=== PATIENT | female | born 1975 | race Caucasian/White ===

== ENCOUNTER → 2019-04-29 15:30 | Outpatient (BNVA) | payer MEDICAID, SELFPAY | PROVIDERS: Visit Provider Obstetrics & Gynecology | DX: Z01.89 Encounter for other specified special examinations (principal) | CPT/HCPCS: 81000; 84315 ==

== ENCOUNTER → 2019-05-04 14:32 | Outpatient (BNVA) | payer MEDICAID, SELFPAY | PROVIDERS: Visit Provider Nurse Practitioner Women's Health | DX: R10.2 Pelvic and perineal pain (principal); D25.9 Leiomyoma of uterus, unspecified | CPT/HCPCS: 76830 ==

== ENCOUNTER → 2019-05-10 16:30 | Outpatient (BNVA) | payer MEDICAID, SELFPAY | PROVIDERS: Visit Provider Obstetrics & Gynecology | DX: N64.52 Nipple discharge (principal) | CPT/HCPCS: 84146 ==

== ENCOUNTER 2020-02-09 14:32 | Emergency (ER) | payer MEDICAID, SELFPAY ==
[2020-02-09 14:34] VITALS: BP 155/112; PULSE 87; RESP 16; TEMP 36.6; O2SAT 100; BMI 29.2
--- NOTE | 2020-02-09 14:38 | CTR_ITS ---
PROCEDURE INFORMATION: Exam: CT Abdomen And Pelvis With Contrast Exam date and time: 02/09/2020 2:42 PM Age: 45 years old Clinical indication: Abdominal pain; Localized; Left; Prior surgery; Surgery type: Appy, tubal; Additional info: Pain, left sided, n/v TECHNIQUE: Imaging protocol: Computed tomography of the abdomen and pelvis with intravenous contrast. Radiation optimization: All CT scans at this facility use at least one of these dose optimization techniques: automated exposure control; mA and/or kV adjustment per patient size (includes targeted exams where dose is matched to clinical indication); or iterative reconstruction. Contrast material: OMNI 300; Contrast volume: 95 ml; Contrast route: INTRAVENOUS (IV); COMPARISON: CT abdomen pelvis w con* [id number] 12/30/2017 9:45 AM RADIATION DOSE METRICS: Total DLP (mGy-cm): 989.05 FINDINGS: Liver: Normal. No mass. Gallbladder and bile ducts: Normal. No calcified stones. No ductal dilation. Pancreas: Normal. No ductal dilation. Spleen: Normal. No splenomegaly. Adrenal glands: Normal. No mass. Kidneys and ureters: Normal. No hydronephrosis. Stomach and bowel: Unremarkable. No obstruction. No mucosal thickening. Appendix: There has been an appendectomy. Intraperitoneal space: Unremarkable. No free air. No significant fluid collection. Vasculature: Unremarkable. No abdominal aortic aneurysm. Lymph nodes: Unremarkable. No enlarged lymph nodes. Urinary bladder: Unremarkable as visualized. Reproductive: There is 4.2 x 3.2 cm hypodensity in the posterior uterine body which is unchanged. Bones/joints: Unremarkable. No acute fracture. Soft tissues: Unremarkable. CT/CT abdomen pelvis w con* [id number] IMPRESSION: There are no acute concerning abnormalities. No significant change when compared with 12/30/2017. Radiation Dose CTDIVOL = (mGy): DLP = 989.05 (mGy-cm)
--- NOTE | 2020-02-09 14:54 | W.ED.GIBLEED ---
HPI - GI Bleed General: Chief complaint: GI Bleed Stated complaint: ABDOMINAL PAIN Time Seen by Provider: 02/09/20 14:34 Source: patient and EMS Mode of arrival: EMS Limitations: no limitations History of Present Illness: HPI Narrative: 45-year-old female who presents with EMS for abdominal pain. Very difficult to get history from the patient. 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 Patient here is refusing to talk to me at first states that she hates doctors and will not speak to them. She is screaming and crying. I was able to get some history from her. She states she been having abdominal pain over the last 1 to 2 days. States she had one episode of blood in her stools that was red. Denies any worsening or improving factors. Associated symptoms: Reports abdominal pain; Denies chills, easy bruising, fever(s), headache(s) or rash Review of Systems Const: Denies: fever(s), chills, body aches or change in appetite Eyes: Denies: blurry vision or eye discomfort ENMT: Denies: throat pain or dental pain Card: Denies: chest pain Resp: Denies: dyspnea GI: Reports: abdominal pain : Denies: dysuria Musc: Denies: neck pain or back pain Skin/Breast: Denies: rash Neuro: Denies: headache(s) Psych: Denies: depression Shahriar/Lymph: Denies: easy bruising All/Imm: Denies: urticaria PFSH ED PFSH: Medical History Pelvic pain in female Family History Father Diabetes Hypertension Social History Smoking and tobacco status: never smoked Alcohol intake: current Alcohol intake frequency: holidays/special occasions only Female Reproductive History: Date of last menstrual period: 01/15/20 Physical Exam Const: COMMON NORMALS: patient oriented x3 and healthy appearing GENERAL APPEARANCE: in distress and anxious HENMT: COMMON NORMALS: normocephalic and atraumatic HEAD & SCALP: normocephalic and atraumatic Eye: COMMON NORMALS: Equal, round and reactive pupils present and EOMs intact bilaterally PUPIL: Yes Equal, round and reactive pupils present Neck/C-Spine: COMMON NORMALS: full ROM and supple Chest: COMMONS NORMALS: normal inspection of the chest and normal palpation of entire chest wall Resp: COMMON NORMALS: normal respiratory effort, No retractions, No use of accessory muscles and clear to auscultation bilaterally AUSCULTATION: clear to auscultation bilaterally Cardio: COMMON NORMALS: regular rate, regular rhythm and No murmurs present (Cardio) RATE: regular rate RHYTHM: regular rhythm GI: COMMON NORMALS: Soft to palpation and no masses PALPATION: Yes Soft to palpation OTHER: Diffuse tenderness Extremity: COMMON NORMALS: normal to inspection and full ROM Neuro: COMMON NORMALS: patient oriented x3, moves all extremities and no focal motor deficits Psych: OTHER: Patient is agitated and tearful. She is very angry with the expeditionary fighting vehicle crewman and we had to call security. Patient is also screaming at me stating that she hates doctors and initially would not give me her history Skin: COMMON NORMALS: no rashes or lesions noted and no wounds GENERAL SKIN EXAM: no rashes or lesions noted Course Vital Signs: Vital signs: Vital Signs Temperature 98.9 F 02/09/20 17:21 Pulse Rate 82 02/09/20 17:21 Respiratory Rate 22 H 02/09/20 17:21 Blood Pressure 139/96 02/09/20 17:21 Pulse Oximetry 99 02/09/20 17:21 MDM - GI Bleed MDM Narrative: Medical decision making narrative: Patient presents here with abdominal pain. She states she also had vaginal bleeding in some rectal bleeding. She has no signs of bleeding here and her hemoglobin is stable. Patient CT scan here is normal as well. She is stable for discharge and will place her on Protonix along with dicyclomine and she is to follow-up PCP and return if worsening. Lab Data: Labs: Lab Results 02/09/20 02/09/20 02/09/20 Range/Units 14:50 14:50 15:50 WBC 6.5 (4.0-10.0) 10^3/ uL RBC 3.99 L (4.1-5.3) 10^6/u L Hgb 12.0 (11.5-15.3) g/dL Hct 36.5 L (37.0-47.0) % MCV 91.5 (81-99) fL MCH 30.1 (28.0-34.0) pg MCHC 32.9 (30.0-36.0) g/dL RDW 13.2 (12.1-15.1) % Plt Count 320 (130-400) 10^3/c mm MPV 9.6 (7.4-10.4) fL Neut % (Auto) 54.7 % Lymph % (Auto) 37.5 % Beauregard % (Auto) 5.6 % Eos % (Auto) 1.1 % Baso % (Auto) 0.6 % Neut # (Auto) 3.55 (1.8-7.7) 10^3/u L Lymph # (Auto) 2.4 (0.8-4.8) 10^3/u L Beauregard # (Auto) 0.4 (0.2-0.9) 10^3/u L Eos # (Auto) 0.1 (0.0-0.8) 10^3/u L Baso # (Auto) 0.0 (0.0-0.1) 10^3/u L Nucleated RBC % (a uto) 0 % Nucleated RBCs # 0.0 /100WBC Sodium 138 (136-145) mmol/L Potassium 3.6 (3.5-5.1) mmol/L Chloride 102 (98-107) mmol/L Carbon Dioxide 21 L (22-29) mmol/L Anion Gap 18.6 (5-19) BUN 9 (6-20) mg/dL Creatinine 0.8 (0.5-0.9) mg/dL GFR Calculation 77.6 L (90-130) mL/min Glucose 108 (65-115) mg/dL Calculated Osmolal ity 285 (285-295) mOsm/k g Calcium 9.9 (8.5-10.5) mg/dL Total Bilirubin 0.6 (0.15-1.2) mg/dL AST 11 (0-32) U/L ALT 12 (0-33) U/L Alkaline Phosphata se 82 (35-105) IU/L Total Protein 7.8 (6.6-8.7) g/dL Albumin 4.5 (3.5-5.2) g/dL Globulin 3.3 (1.3-4.6) g/dL Lipase 44 (13-60) U/L HCG, Qual Negative (Negative) Urine Color (Yellow) Urine Appearance (CLEAR) Urine pH (5-7) Ur Specific Gravit y (1.005-1.030) Urine Protein (Negative) Urine Glucose (UA) (Normal) Urine Ketones (Negative) Urine Blood (Negative) Urine Nitrate (Negative) Urine Bilirubin (Negative) Prot Sulfosalicyli c Acd (Negative) Urine Urobilinogen (Negative) mg/dL Ur Leukocyte Anny ase (Negative) 02/09/20 Range/Units 15:50 WBC (4.0-10.0) 10^3/ uL RBC (4.1-5.3) 10^6/u L Hgb (11.5-15.3) g/dL Hct (37.0-47.0) % MCV (81-99) fL MCH (28.0-34.0) pg MCHC (30.0-36.0) g/dL RDW (12.1-15.1) % Plt Count (130-400) 10^3/c mm MPV (7.4-10.4) fL Neut % (Auto) % Lymph % (Auto) % Beauregard % (Auto) % Eos % (Auto) % Baso % (Auto) % Neut # (Auto) (1.8-7.7) 10^3/u L Lymph # (Auto) (0.8-4.8) 10^3/u L Beauregard # (Auto) (0.2-0.9) 10^3/u L Eos # (Auto) (0.0-0.8) 10^3/u L Baso # (Auto) (0.0-0.1) 10^3/u L Nucleated RBC % (a uto) % Nucleated RBCs # /100WBC Sodium (136-145) mmol/L Potassium (3.5-5.1) mmol/L Chloride (98-107) mmol/L Carbon Dioxide (22-29) mmol/L Anion Gap (5-19) BUN (6-20) mg/dL Creatinine (0.5-0.9) mg/dL GFR Calculation (90-130) mL/min Glucose (65-115) mg/dL Calculated Osmolal ity (285-295) mOsm/k g Calcium (8.5-10.5) mg/dL Total Bilirubin (0.15-1.2) mg/dL AST (0-32) U/L ALT (0-33) U/L Alkaline Phosphata se (35-105) IU/L Total Protein (6.6-8.7) g/dL Albumin (3.5-5.2) g/dL Globulin (1.3-4.6) g/dL Lipase (13-60) U/L HCG, Qual (Negative) Urine Color Yellow (Yellow) Urine Appearance Clear (CLEAR) Urine pH 8 H (5-7) Ur Specific Gravit y 1.015 (1.005-1.030) Urine Protein Neg (Negative) Urine Glucose (UA) Norm (Normal) Urine Ketones Negative (Negative) Urine Blood Neg (Negative) Urine Nitrate Negative (Negative) Urine Bilirubin Neg (Negative) Prot Sulfosalicyli c Acd Negative (Negative) Urine Urobilinogen Neg (Negative) mg/dL Ur Leukocyte Anny ase Negative (Negative) Imaging Data^: CT Abd/Pel: Attestation: I personally reviewed and interpreted this imaging study as follows: Radiologist's impression: [place] [address] CT Scan Report Signed Patient: Stephanie Valentino Unit #: [id number] : 1975 Age/Sex: 45 / F ADM Date: 02/09/20 Loc: ER Room/Bed: Attending Dr: Ordering Provider/Ordering MD: Kartik Nesbitt MD Date of Service: 02/09/20 Procedure(s): CT abdomen pelvis w con* [id number] Accession Number(s): [id number] Report Number: [id number] PROCEDURE INFORMATION: Exam: CT Abdomen And Pelvis With Contrast Exam date and time: 02/09/2020 2:42 PM Age: 45 years old Clinical indication: Abdominal pain; Localized; Left; Prior surgery; Surgery type: Appy, tubal; Additional info: Pain, left sided, n/v TECHNIQUE: Imaging protocol: Computed tomography of the abdomen and pelvis with intravenous contrast. Radiation optimization: All CT scans at this facility use at least one of these dose optimization techniques: automated exposure control; mA and/or kV adjustment per patient size (includes targeted exams where dose is matched to clinical indication); or iterative reconstruction. Contrast material: OMNI 300; Contrast volume: 95 ml; Contrast route: INTRAVENOUS (IV); COMPARISON: CT abdomen pelvis w con* [id number] 12/30/2017 9:45 AM RADIATION DOSE METRICS: Total DLP (mGy-cm): 989.05 FINDINGS: Liver: Normal. No mass. Gallbladder and bile ducts: Normal. No calcified stones. No ductal dilation. Pancreas: Normal. No ductal dilation. Spleen: Normal. No splenomegaly. Adrenal glands: Normal. No mass. Kidneys and ureters: Normal. No hydronephrosis. Stomach and bowel: Unremarkable. No obstruction. No mucosal thickening. Appendix: There has been an appendectomy. Intraperitoneal space: Unremarkable. No free air. No significant fluid collection. Vasculature: Unremarkable. No abdominal aortic aneurysm. Lymph nodes: Unremarkable. No enlarged lymph nodes. Urinary bladder: Unremarkable as visualized. Reproductive: There is 4.2 x 3.2 cm hypodensity in the posterior uterine body which is unchanged. Bones/joints: Unremarkable. No acute fracture. Soft tissues: Unremarkable. CT/CT abdomen pelvis w con* [id number] IMPRESSION: There are no acute concerning abnormalities. No significant change when compared with 12/30/2017. Discharge Plan Discharge Patient Disposition: Home Clinical Impression: Pelvic pain in female, Vaginal bleeding Condition: Stable Prescriptions: New dicyclomine 20 mg tablet 20 mg PO TID PRN (Reason: abdominal pain) Qty: 20 RF: 0 Protonix 40 mg tablet,delayed release (DR/EC) 40 mg PO DAILY Qty: 30 RF: 0 No Action ranitidine HCl 75 mg tablet 75 mg PO BID RF: 0 Discharge Orders: Discharge Order (Routine); Ordered 02/09/20 Ordered By: Kartik Nesbitt Referrals: David Goldsmith MD [Physician] - 1-3 days Discharge Diet: Advance as tolerated Discharge Activity: Resume usual activity Patient Instructions: Abdominal Pain (ED) Discharge Date/Time: 02/09/20 17:26 Coding Level of Care Code ED Geography Head for Chg Fwd Exam Comprehensive
[2020-02-09 14:59] LABS: Basophils % 0.6 %; Eosinophils # 0.1 10^3/uL (0.0-0.8); Eosinophils % 1.1 %; Hematocrit 36.5 % (37.0-47.0); Lymphocytes # 2.4 10^3/uL (0.8-4.8); Lymphocytes % 37.5 %; Mean Corpuscular HGB Conc 32.9 g/dL (30.0-36.0); Mean Corpuscular Hemoglobin 30.1 pg (28.0-34.0); Mean Corpuscular Volume 91.5 fL (81-99); Mean Platelet Volume 9.6 fL (7.4-10.4); Monocytes # 0.4 10^3/uL (0.2-0.9); Monocytes % 5.6 %; Neutrophils # 3.55 10^3/uL (1.8-7.7); Neutrophils % 54.7 %; Nucleated Red Blood Cells % 0 %; Platelet Count 320 10^3/cmm (130-400); Red Blood Count 3.99 10^6/uL (4.1-5.3); Red Cell Distribution Width 13.2 % (12.1-15.1); White Blood Count 6.5 10^3/uL (4.0-10.0)
[2020-02-09 15:00] VITALS: RESP 20
[2020-02-09] MEDS: morphine 4 mg/mL SDV 1 mL IVP (15:00)
[2020-02-09] MEDS: LORazepam 2 mg/mL INJ 1 mL 1 MG IVP (15:04)
[2020-02-09] MEDS: sodium chloride 0.9% 1,000 ML 999 ML IV (15:05)
[2020-02-09 15:08] VITALS: BP 139/94; PULSE 88; RESP 24; O2SAT 97
[2020-02-09] MEDS: iohexol 300 mg/mL 100 mL Btl IV (15:16)
[2020-02-09 15:23] LABS: Alanine Aminotransferase 12 U/L (0-33); Albumin Level 4.5 g/dL (3.5-5.2); Alkaline Phosphatase 82 IU/L (35-105); Anion Gap 18.6 (5-19); Aspartate Amino Transferase 11 U/L (0-32); Blood Urea Nitrogen 9 mg/dL (6-20); Calcium 9.9 mg/dL (8.5-10.5); Carbon Dioxide 21 mmol/L (22-29); Chloride 102 mmol/L (98-107); Globulin 3.3 g/dL (1.3-4.6); Glomerular Filtration Rate 77.6 mL/min (90-130); Glucose 108 mg/dL (65-115); Lipase 44 U/L (13-60); Osmolality Calculated 285 mOsm/kg (285-295); Potassium 3.6 mmol/L (3.5-5.1); Sodium 138 mmol/L (136-145); Total Bilirubin 0.6 mg/dL (0.15-1.2); Total Protein 7.8 g/dL (6.6-8.7)
[2020-02-09 16:01] LABS: HCG Qualitative Urine. Negative (Negative)
[2020-02-09 16:11] LABS: Add Urine Microscopic? NO
[2020-02-09 16:16] LABS: Glucose Urine UA Norm (Normal); Ketones Urine Negative (Negative); Protein Urine Neg (Negative); Specific Gravity, Urine 1.015 (1.005-1.030); Urine Appearance Clear (CLEAR); Urine Color Yellow (Yellow); pH Urine 8 (5-7)
[2020-02-09 16:17] LABS: Bilirubin Urine Neg (Negative); Blood Urine Neg (Negative); Leukocyte Esterase Urine Negative (Negative); Nitrate Urine Negative (Negative); Sulfosalicylic Acid Urine Negative (Negative); Urobilinogen Urine Neg (Negative)
[2020-02-09 17:21] VITALS: BP 139/96; PULSE 82; RESP 22; TEMP 37.2; O2SAT 99
== END 2020-02-09 17:26 | disposition home or self-care (01) ==
PROVIDERS: Emergency Provider Emergency Medicine
DX: R10.2 Pelvic and perineal pain (principal); N93.9 Abnormal uterine and vaginal bleeding, unspecified
CPT/HCPCS: 12345; 74177; 80053; 81003; 81025; 83690; 85025; 96361; 96374; 96375; 99283; J2060; J2270; J7030; Q9967

== ENCOUNTER 2020-08-07 11:32 | Emergency (ER) | payer MEDICAID, SELFPAY ==
[2020-08-07 11:40] VITALS: BP 135/86; PULSE 72; RESP 18; TEMP 37; O2SAT 98; BMI 31.8
--- NOTE | 2020-08-07 11:52 | ECG_ITS ---
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 Measurements Intervals [place] Rate: 68 P: 14 HI: 173 QRS: -4 QRSD: 88 T: 1 QT: 403 QTc: 431 Interpretive Statements SINUS RHYTHM POSSIBLE RIGHT VENTRICULAR CONDUCTION DELAY [RSR (QR) IN V1/V2] Compared to ECG 10/15/2017 14:02:40 Incomplete right bundle-branch block no longer present Electronically Signed On 08-08-2020 8:01:32 CDT by Wilfredo Anne M.D. [email or web address]
--- NOTE | 2020-08-07 11:52 | XRR_ITS ---
PROCEDURE INFORMATION: Exam: XR Chest Exam date and time: 08/07/2020 12:01 PM Age: 45 years old Clinical indication: Cough and dyspnea; Prior surgery; Surgery type: Lt breast; Additional info: Dyspnea/cough TECHNIQUE: Imaging protocol: XR of the chest. Views: 1 view. COMPARISON: CR XR ribs LT mn 3V w CXR1V [id number] 10/11/2019 10:40 AM FINDINGS: Lungs: Unremarkable. No consolidation. Pleural spaces: Unremarkable. No pleural effusion. No pneumothorax. Heart/Mediastinum: The cardiac silhouette is normal considering the AP projection. Bones/joints: Unremarkable. XR/XR chest 1V portable [id number] IMPRESSION: No significant cardiopulmonary abnormality.
--- NOTE | 2020-08-07 12:13 | CTR_ITS ---
PROCEDURE INFORMATION: Exam: CTA Chest With Contrast Exam date and time: 08/07/2020 12:28 PM Age: 45 years old Clinical indication: Abdominal pain; Chest pain; Prior surgery; Additional info: Chest pain/dyspena adb pain with n/v, breast mass TECHNIQUE: Imaging protocol: Computed tomographic angiography of the chest with contrast. 3D rendering (Not supervised by radiologist): MIP and/or 3D reconstructed images were created by the technologist. Radiation optimization: All CT scans at this facility use at least one of these dose optimization techniques: automated exposure control; mA and/or kV adjustment per patient size (includes targeted exams where dose is matched to clinical indication); or iterative reconstruction. Contrast material: OMNI 300; Contrast volume: 95 ml; Contrast route: INTRAVENOUS (IV); COMPARISON: CR XR chest 1V portable [id number] 08/07/2020 11:59 AM RADIATION DOSE METRICS: Total DLP (mGy-cm): 1743.46 FINDINGS: Pulmonary arteries: Normal. No pulmonary emboli. Aorta: Unremarkable. No aortic aneurysm. No aortic dissection. Lungs: Unremarkable. No consolidation. No masses. Pleural spaces: Unremarkable. No pneumothorax. No pleural effusion. Heart: Unremarkable. No cardiomegaly. No pericardial effusion. Lymph nodes: Unremarkable. No enlarged lymph nodes. Bones/joints: Unremarkable. No acute fracture. Soft tissues: Unremarkable. IMPRESSION: No acute findings. PROCEDURE INFORMATION: Exam: CT Abdomen And Pelvis With Contrast Exam date and time: 08/07/2020 12:28 PM Age: 45 years old Clinical indication: Abdominal pain; Chest pain; Prior surgery; Additional info: Chest pain/dyspena adb pain with n/v, breast mass TECHNIQUE: Imaging protocol: Computed tomography of the abdomen and pelvis with contrast. Radiation optimization: All CT scans at this facility use at least one of these dose optimization techniques: automated exposure control; mA and/or kV adjustment per patient size (includes targeted exams where dose is matched to clinical indication); or iterative reconstruction. Contrast material: OMNI 300; Contrast volume: 95 ml; Contrast route: INTRAVENOUS (IV); COMPARISON: CR XR chest 1V portable [id number] 08/07/2020 11:59 AM RADIATION DOSE METRICS: Total DLP (mGy-cm): 1743.46 FINDINGS: Liver: Normal. No mass. Gallbladder and bile ducts: Normal. No calcified stones. No ductal dilation. Pancreas: Normal. No ductal dilation. Spleen: Normal. No splenomegaly. Adrenal glands: Normal. No mass. Kidneys and ureters: Normal. No hydronephrosis. Stomach and bowel: Unremarkable. No obstruction. No mucosal thickening. Appendix: Appendectomy. Intraperitoneal space: Unremarkable. No free air. No significant fluid collection. Vasculature: Unremarkable. No abdominal aortic aneurysm. Lymph nodes: Unremarkable. No enlarged lymph nodes. Urinary bladder: Unremarkable as visualized. Reproductive: Multiple small rounded hypoattenuating masses in the lower uterine segment, most likely fibroids. No adnexal mass. Bones/joints: Unremarkable. No acute fracture. Soft tissues: Unremarkable. CT/CT angio chest w abd pel w con IMPRESSION: No acute findings in the abdomen or pelvis. Radiation Dose CTDIVOL = (mGy): DLP = 1743.46~1743.46 (mGy-cm)
--- NOTE | 2020-08-07 12:13 | CT_ITS ---
WS: [id number] CT HEAD TECHNIQUE: Noncontrast CT of the head obtained from the skullbase to the vertex. CLINICAL INFORMATION: meningioma, headache, N/V COMPARISON: CT May 29, 2016 and MRI , multiple prior MRIs dating back to 2011 DLP: All CT scans at [facility] use at least one of these dose optimization techniques: automat ed exposure control; mA and/or kV adjustment per patient size (includes targeted exams where dose is matched to clinical indication); or iterative reconstruction. FINDINGS: Again seen is the partially calcified meningioma along the left frontal operculum and sylvian fissure . This is enlarged compared to the prior examinations today measuring 2.6 x 1.5 x 2.4 cm. This compar es to previous measuring 1.6 x 1.8 x 1.6 cm. Associated mass effect on the underlying brain parenchym a. No visualized edema. This can be further evaluated with MRI. No hydrocephalus. No midline shift. No evidence of intracranial hemorrhage. Additional small area of calcification along the left parietal calvarium may represent an additional calcified meningioma measuring 8 x 7 mm versus benign calcification. This does appear enlarged compar ed to 2017 where it measured 5 mm. This can be better evaluated with MRI. CT/CT head wo con* [id number] IMPRESSION: 1. Previously described left inferior frontal meningioma has increased in size compared to 2017 today measuring 2.6 x 1.5 x 2.4 cm. No visualized underlying edema. Mild mass effect on the underlying brain parenchyma. 2. Additional small focus of calcification along the left parietal calvarium i ncreased since 2017 measures 8 x 7 mm suspicious for an additional calcified me ningioma. This would be better evaluated with gadolinium enhanced MRI. 3. No intracranial hemorrhage. Attempted Chandan Laird DO at 08/07/2020 1:46 PM.
--- NOTE | 2020-08-07 12:16 | W.ED.GENADLT ---
HPI - General Adult General: Chief complaint: General Medical Stated complaint: CP Time Seen by Provider: 08/07/20 11:42 History of Present Illness: HPI narrative: 45-year-old female presents to the emergency room complaining of back pain radiating down from her mid back down at times she states it feels like it goes all the way down into her pelvis to what she describes as to her cervix. She had an episode of the severe sudden episode of chest pain this morning and felt like it radiated from her head down into her chest and her jaw. She has a known history of meningioma she was worried about that. She also relates that she has had painful bloody drainage from her left breast last week. About a year and a half ago she had imaging done reportedly at [facility] and was told she had some breast masses that needed further follow-up she never did get any further evaluation done unfortunately. She is also reporting a lot of abdominal pain with severe nausea pain radiating from her mid back down into the abdomen at times and worsening pain with deep inspiration she has had an episode of hemoptysis with it one time as well. Onset (ago): day(s) Location: head, chest and abdomen Radiation: back and abdomen Severity: mild and moderate Quality: aching and constant Relieving factors: none Associated symptoms: Reports nausea; Deny chest pain, confusion, cough, diaphoresis, decreased appetite, dyspnea, fevers/chills, headache(s), malaise, rash, palpitations, seizures, short of breath, syncope, vomiting or weakness Treatments prior to arrival: none Review of Systems Const: Denies: malaise or diaphoresis ENMT: Denies: throat pain, ear or mastoid pain, nasal discharge or nasal congestion Card: Denies: chest pain, palpitations or syncope Resp: Denies: dyspnea GI: Reports: nausea; Denies: vomiting : Denies: flank pain, difficulty voiding, dysuria, urinary frequency or urinary urgency Skin/Breast: Denies: rash Neuro: Denies: headache(s) or confusion [facility] ED PFSH: Medical History (Updated 08/07/20 @ 15:21 by Chandan Laird DO) Pelvic pain in female Family History Father Diabetes Hypertension Social History (Reviewed 05/04/21 @ 12:40 by DEB Chen Smoking and tobacco status: never smoked Alcohol intake: current Alcohol intake frequency: holidays/special occasions only Female Reproductive History: Date of last menstrual period: 01/15/20 Physical Exam Const: COMMON NORMALS: no acute distress GENERAL APPEARANCE: cooperative and comfortable ORIENTATION/CONSCIOUSNESS: Yes awake, Yes oriented to person, Yes oriented to place and Yes oriented to time HENMT: COMMON NORMALS: normocephalic, atraumatic, hearing grossly normal bilaterally, external ears normal, EAC's normal, TM's normal bilaterally, Normal nasal mucous membranes and turbinates present, moist oral mucous membranes and oropharynx normal HEAD & SCALP: normocephalic and atraumatic NOSE: Normal nasal mucous membranes and turbinates present EXTERNAL EAR: Yes external ears normal EXTERNAL AUDITORY CANAL: EAC's normal TYMPANIC MEMBRANE: TM's normal bilaterally Eye: COMMON NORMALS: Equal, round and reactive pupils present, EOMs intact bilaterally, conjunctivae normal and no scleral icterus CONJUNCTIVA: Yes conjunctivae normal PUPIL: Yes Equal, round and reactive pupils present Neck/C-Spine: COMMON NORMALS: full ROM, no lymphadenopathy, supple and no JVD Lymph: LYMPHATIC: no lymphadenopathy noted and no lymphedema noted Chest: COMMONS NORMALS: normal inspection of the chest Breast/axilla inspection: Yes abnormal inspection of the breast (12 to 1 o'clock position there is a mass approximately 3 to 4 cm from the a) and Yes scars (And o'clock on the left breast there is a incision.) Resp: COMMON NORMALS: normal respiratory effort, No retractions, No use of accessory muscles and clear to auscultation bilaterally AUSCULTATION: clear to auscultation bilaterally Cardio: COMMON NORMALS: no JVD, regular rate, regular rhythm and No murmurs present (Cardio) RATE: regular rate RHYTHM: regular rhythm GI: COMMON NORMALS: Soft to palpation and No hepatosplenomegaly present AUSCULTATION: Yes normoactive bowel sounds PALPATION: Yes Soft to palpation, No Tenderness to palpation present (GI), No Guarding due to palpation present (GI) and Yes No hepatosplenomegaly present Extremity: COMMON NORMALS: normal to inspection, capillary refill normal, no clubbing, cyanosis or edema, no calf tenderness and no pedal edema Neuro: SENSORIUM/ORIENTATION: Yes oriented to person, Yes oriented to place and Yes oriented to time Skin: COMMON NORMALS: no rashes or lesions noted GENERAL SKIN EXAM: no rashes or lesions noted Course Vital Signs: Vital signs: Vital Signs Temperature 98.6 F 08/07/20 11:40 Pulse Rate 69 08/07/20 15:38 Respiratory Rate 18 08/07/20 15:38 Blood Pressure 172/122 08/07/20 15:38 Pulse Oximetry 100 08/07/20 15:38 MDM - General Adult MDM Narrative: Medical decision making narrative: Reviewed findings including imaging of the patient. Strongly encourage her to establish the primary care so that they can do further imaging of the breasts including mammography. She reports having had abnormal exam several years ago has not had the follow-up. For her leg pain gave her diclofenac and tizanidine. There are no acute findings on her CT of her abdomen her abdominal pain is pretty much resolved. Lab Data: Labs: Lab Results 08/07/20 08/07/20 08/07/20 Range/Units 12:46 12:46 12:46 WBC 5.4 (4.0-10.0) 10^3/ uL RBC 3.81 L (4.1-5.3) 10^6/u L Hgb 11.1 L (11.5-15.3) g/dL Hct 35.6 L (37.0-47.0) % MCV 93.4 (81-99) fL MCH 29.1 (28.0-34.0) pg MCHC 31.2 (30.0-36.0) g/dL RDW 14.1 (12.1-15.1) % Plt Count 324 (130-400) 10^3/c mm MPV 9.6 (7.4-10.4) fL Neut % (Auto) 55.4 % Lymph % (Auto) 36.1 % [place] % (Auto) 5.4 % Eos % (Auto) 1.9 % Baso % (Auto) 0.6 % Neut # (Auto) 3.00 (1.8-7.7) 10^3/u L Lymph # (Auto) 2.0 (0.8-4.8) 10^3/u L [place] # (Auto) 0.3 (0.2-0.9) 10^3/u L Eos # (Auto) 0.1 (0.0-0.8) 10^3/u L Baso # (Auto) 0.0 (0.0-0.1) 10^3/u L Nucleated RBC % (a uto) 0 % Nucleated RBCs # 0.0 /100WBC Sodium 138 (136-145) mmol/L Potassium 3.8 (3.5-5.1) mmol/L Chloride 107 (98-107) mmol/L Carbon Dioxide 20 L (22-29) mmol/L Anion Gap 14.8 (5-19) BUN 10 (6-20) mg/dL Creatinine 0.7 (0.5-0.9) mg/dL GFR Calculation 90.5 (90-130) mL/min Glucose 93 (65-115) mg/dL Calculated Osmolal ity 285 (285-295) mOsm/k g Calcium 8.8 (8.5-10.5) mg/dL Total Bilirubin 0.3 (0.15-1.2) mg/dL AST 13 (0-32) U/L ALT 30 (0-33) U/L Alkaline Phosphata se 86 (35-105) IU/L Troponin T Baselin e 6 (0-10) ng/L Troponin T 120 Min cher-ae heights (0-10) ng/L Delta Troponin T (0-10) ABS# Total Protein 7.3 (6.6-8.7) g/dL Albumin 4.3 (3.5-5.2) g/dL Globulin 3.0 (1.3-4.6) g/dL Urine Color (Yellow) Urine Appearance (CLEAR) Urine pH (5-7) Ur Specific Gravit y (1.005-1.030) Urine Protein (Negative) Urine Glucose (UA) (Normal) Urine Ketones (Negative) Urine Blood (Negative) Urine Nitrate (Negative) Urine Bilirubin (Negative) Urine Urobilinogen (Negative) mg/dL Ur Leukocyte Anny ase (Negative) Urine RBC (0-2) /hpf Urine WBC (0-5) /hpf Ur Squamous Epith Cells (0-5) /hpf Amorphous Sediment Urine Bacteria (NONE) /hpf 08/07/20 08/07/20 Range/Units 14:00 Unknown WBC (4.0-10.0) 10^3/ uL RBC (4.1-5.3) 10^6/u L Hgb (11.5-15.3) g/dL Hct (37.0-47.0) % MCV (81-99) fL MCH (28.0-34.0) pg MCHC (30.0-36.0) g/dL RDW (12.1-15.1) % Plt Count (130-400) 10^3/c mm MPV (7.4-10.4) fL Neut % (Auto) % Lymph % (Auto) % [place] % (Auto) % Eos % (Auto) % Baso % (Auto) % Neut # (Auto) (1.8-7.7) 10^3/u L Lymph # (Auto) (0.8-4.8) 10^3/u L [place] # (Auto) (0.2-0.9) 10^3/u L Eos # (Auto) (0.0-0.8) 10^3/u L Baso # (Auto) (0.0-0.1) 10^3/u L Nucleated RBC % (a uto) % Nucleated RBCs # /100WBC Sodium (136-145) mmol/L Potassium (3.5-5.1) mmol/L Chloride (98-107) mmol/L Carbon Dioxide (22-29) mmol/L Anion Gap (5-19) BUN (6-20) mg/dL Creatinine (0.5-0.9) mg/dL GFR Calculation (90-130) mL/min Glucose (65-115) mg/dL Calculated Osmolal ity (285-295) mOsm/k g Calcium (8.5-10.5) mg/dL Total Bilirubin (0.15-1.2) mg/dL AST (0-32) U/L ALT (0-33) U/L Alkaline Phosphata se (35-105) IU/L Troponin T Baselin e (0-10) ng/L Troponin T 120 Min cher-ae heights 6.00 (0-10) ng/L Delta Troponin T 0 (0-10) ABS# Total Protein (6.6-8.7) g/dL Albumin (3.5-5.2) g/dL Globulin (1.3-4.6) g/dL Urine Color Yellow (Yellow) Urine Appearance Sl hazy (CLEAR) Urine pH 5 (5-7) Ur Specific Gravit y 1.010 (1.005-1.030) Urine Protein Neg (Negative) Urine Glucose (UA) Norm (Normal) Urine Ketones Negative (Negative) Urine Blood 3+ H (Negative) Urine Nitrate Negative (Negative) Urine Bilirubin Neg (Negative) Urine Urobilinogen Norm (Negative) mg/dL Ur Leukocyte Anny ase Negative (Negative) Urine RBC 15-25 H (0-2) /hpf Urine WBC 0-4 H (0-5) /hpf Ur Squamous Epith Cells 5-10 H (0-5) /hpf Amorphous Sediment Not Reportable Urine Bacteria 2+ H (NONE) /hpf EKG Data^: EKG 1: Computer generated interpretation: Chest X-Ray 08/07/20 11:52 IMPRESSION: No significant cardiopulmonary abnormality. Chest/Abdomen/Pelvis CT 08/07/20 12:13 IMPRESSION: No acute findings in the abdomen or pelvis. Radiation Dose CTDIVOL = (mGy): DLP = 1743.46~1743.46 (mGy-cm) Head CT 08/07/20 12:13 IMPRESSION: 1. Previously described left inferior frontal meningioma has increased in size compared to 2017 today measuring 2.6 x 1.5 x 2.4 cm. No visualized underlying edema. Mild mass effect on the underlying brain parenchyma. 2. Additional small focus of calcification along the left parietal calvarium increased since 2017 measures 8 x 7 mm suspicious for an additional calcified meningioma. This would be better evaluated with gadolinium enhanced MRI. 3. No intracranial hemorrhage. Doni Laird DO at 08/07/2020 1:46 PM. Discharge Plan Discharge Patient Disposition: Home Clinical Impression: Myalgia, Breast discharge Condition: Stable Prescriptions: New tizanidine 4 mg capsule 4 mg PO Q6H PRN (Reason: muscle spasticity) Qty: 20 RF: 0 diclofenac sodium 75 mg tablet,delayed release (DR/EC) 75 mg PO Q12H PRN (Reason: pain) Qty: 20 RF: 0 Discontinued ibuprofen [Advil] 200 mg Tablet 800 mg PO Q4H PRN (Reason: Pain) RF: 0 No Action [place] 3 Capsule 1 cap PO BID RF: 0 Adult Multivitamin Gummies 200 mcg Tablet,Chewable 1 tab PO BID RF: 0 Discharge Orders: Discharge ED (Routine); Ordered 08/07/20 Ordered By: Chandan Laird Discharge Diet: Usual diet Discharge Activity: Resume usual activity Patient Instructions: Opioid Safety Activity Restrictions/Additional Instructions: Management will call to help you arrange for a primary care physician. Coding Level of Care Code ED Production Editor for Cristino Fwd Exam Comprehensive
[2020-08-07 12:51] LABS: Add Urine Microscopic? YES; Bilirubin Urine Neg (Negative); Blood Urine 3+ (Negative); Glucose Urine UA Norm (Normal); Ketones Urine Negative (Negative); Leukocyte Esterase Urine Negative (Negative); Nitrate Urine Negative (Negative); Protein Urine Neg (Negative); Urine Appearance SL Hazy (CLEAR); Urine Color Yellow (Yellow); Urobilinogen Urine Norm (Negative); pH Urine 5 (5-7)
[2020-08-07 12:57] LABS: RBC Urine 15-25 /hpf (0-2)
[2020-08-07 12:59] LABS: Basophils % 0.6 %; Eosinophils # 0.1 10^3/uL (0.0-0.8); Eosinophils % 1.9 %; Hematocrit 35.6 % (37.0-47.0); Hemoglobin 11.1 g/dL (11.5-15.3); Lymphocytes % 36.1 %; Mean Corpuscular HGB Conc 31.2 g/dL (30.0-36.0); Mean Corpuscular Hemoglobin 29.1 pg (28.0-34.0); Mean Corpuscular Volume 93.4 fL (81-99); Mean Platelet Volume 9.6 fL (7.4-10.4); Monocytes # 0.3 10^3/uL (0.2-0.9); Monocytes % 5.4 %; Neutrophils % 55.4 %; Nucleated Red Blood Cells % 0 %; Platelet Count 324 10^3/cmm (130-400); Red Blood Count 3.81 10^6/uL (4.1-5.3); Red Cell Distribution Width 14.1 % (12.1-15.1); White Blood Count 5.4 10^3/uL (4.0-10.0)
[2020-08-07] MEDS: iohexol 350 mg/mL 100 mL Btl IV (13:05)
[2020-08-07 13:09] LABS: WBC Urine 0-4 /hpf (0-5)
[2020-08-07 13:10] LABS: Add Urine Culture? Yes; Bacteria Urine 2+ /hpf
[2020-08-07 13:35] LABS: Alanine Aminotransferase 30 U/L (0-33); Albumin Level 4.3 g/dL (3.5-5.2); Alkaline Phosphatase 86 IU/L (35-105); Anion Gap 14.8 (5-19); Aspartate Amino Transferase 13 U/L (0-32); Blood Urea Nitrogen 10 mg/dL (6-20); Calcium 8.8 mg/dL (8.5-10.5); Carbon Dioxide 20 mmol/L (22-29); Chloride 107 mmol/L (98-107); Glomerular Filtration Rate 90.5 mL/min (90-130); Glucose 93 mg/dL (65-115); Osmolality Calculated 285 mOsm/kg (285-295); Potassium 3.8 mmol/L (3.5-5.1); Sodium 138 mmol/L (136-145); Total Bilirubin 0.3 mg/dL (0.15-1.2); Total Protein 7.3 g/dL (6.6-8.7)
[2020-08-07 13:36] LABS: Troponin(5th) Baseline 6 ng/L (0-10)
--- NOTE | 2020-08-07 13:52 | ECG_ITS ---
[facility] Test Date: 2020-08-07 Pat Name: Stephanie Valentino Department: Room: Gender: Female Green Chain Puller: : 1975 Requested By: Chandan Villagomez Order Number: [id number] Lety MD: Wilfredo Anne M.D. Measurements Intervals [place] Rate: 60 P: 11 MS: 186 QRS: -3 QRSD: 92 T: -2 QT: 430 QTc: 431 Interpretive Statements SINUS RHYTHM INCOMPLETE RIGHT BUNDLE BRANCH BLOCK [90+ ms QRS DURATION, TERMINAL R IN V1/V2, 40+ ms S IN I/aVL/V4/V5/V6] Compared to ECG 08/07/2020 11:43:15 Incomplete right bundle-branch block now present Electronically Signed On 08-08-2020 10:03:07 CDT by Wilfredo Anne M.D. [email or web address] [id number]
[2020-08-07] MEDS: ondansetron 2 mg/ML SDV 2 mL 4 MG IVP (14:00)
[2020-08-07 14:41] LABS: Troponin 5 2HR Delta 0 ABS# (0-10)
[2020-08-07 14:59] VITALS: RESP 18
[2020-08-07] MEDS: morphine 4 mg/mL SDV 1 mL IVP (14:59)
[2020-08-07 15:38] VITALS: BP 172/122; PULSE 69; RESP 18; O2SAT 100
== END 2020-08-07 15:39 | disposition home or self-care (01) ==
PROVIDERS: Emergency Provider Family Medicine
DX: M79.10 Myalgia, unspecified site (principal); N64.52 Nipple discharge
CPT/HCPCS: 36415; 70450; 71045; 71275; 74177; 80053; 81001; 84484; 85025; 87086; 93005; 96374; 96375; 99284; J2270; J2405; Q9967

== ENCOUNTER 2021-02-20 10:02 | Emergency (ER) | payer MEDICAID, SELFPAY ==
[2021-02-20 10:12] VITALS: BP 122/85; PULSE 79; RESP 15; TEMP 37; O2SAT 99; BMI 30.1
--- NOTE | 2021-02-20 10:37 | XR_ITS ---
WS: [id number] Exam: XR chest 1V portable [id number] Date/Time of Exam: 02/20/2021 10:37 AM Reason For Exam: chest pain Comparison 08/07/2020. Findings: The lungs are clear and fully expanded. Costophrenic angles are sharp. No infiltrates. Bronchovascula r relief appears normal. Cardiac silhouette is unremarkable. Bony elements are intact. XR/XR chest 1V portable [id number] IMPRESSION: Unremarkable chest radiograph.
--- NOTE | 2021-02-20 10:37 | ECG_ITS ---
[facility] Test Date: 2021-02-20 Pat Name: Stephanie Valentino Department: Room: Gender: Female Range Rider: : 1975 Requested By: Felicia Maldonado Order Number: [id number] Lety MD: Katharina Guerrero M.D. Measurements Intervals [place] Rate: 59 P: 5 [place]: 167 QRS: 2 QRSD: 96 T: 7 QT: 443 QTc: 439 Interpretive Statements SINUS BRADYCARDIA INCOMPLETE RIGHT BUNDLE BRANCH BLOCK [90+ ms QRS DURATION, TERMINAL R IN V1/V2, 40+ ms S IN I/aVL/V4/V5/V6] Compared to ECG 02/20/2021 11:34:35 Sinus rhythm no longer present Electronically Signed On 02-20-2021 22:44:12 ICT ANALYST by Katharina Guerrero M.D. [id number]
--- NOTE | 2021-02-20 11:30 | ED_ITS ---
HPI - Chest Pain General: Chief Complaint: Chest Pain Stated Complaint: THROWING UP COFFEE GROUND BLOOD FACE NUMBING Time Seen by Provider: 02/20/21 11:20 Source: patient Mode of arrival: ambulatory Limitations: no limitations History of Present Illness: HPI narrative: 46-year-old female states that she has been having nausea and vomiting since Thursday. She states that she has not been able to keep anything down. He states he is also been having some left- sided chest pain that started yesterday. States it is worse with touch. She denies any blood in her stools states she only had a few episodes of coffee- ground emesis. Denies headache she does have a history of meningioma. Denies any worsening improving factors. Had some abdominal cramping. Associated symptoms: Reports nausea and vomiting; Deny dyspnea or fever(s) Review of Systems Const: Denies: fever(s), chills, body aches or change in appetite Eyes: Denies: blurry vision or eye discomfort ENMT: Denies: throat pain or dental pain Card: Reports: chest pain Resp: Denies: dyspnea GI: Reports: nausea, vomiting, hematemesis and coffee ground emesis : Denies: dysuria Musc: Denies: neck pain or back pain Skin/Breast: Denies: rash Neuro: Denies: headache(s) Psych: Denies: depression Shahriar/Lymph: Denies: easy bruising All/Imm: Denies: urticaria PFS ED PFSH: Medical History (Updated 02/20/21 @ 14:42 by Kartik Nesbitt MD) Pelvic pain in female Family History Father Diabetes Hypertension Social History Smoking and tobacco status: never smoked Alcohol intake: current Alcohol intake frequency: holidays/special occasions only Female Reproductive History: Date of last menstrual period: 01/15/20 Physical Exam Const: COMMON NORMALS: no acute distress, patient oriented x3 and healthy appearing HENMT: COMMON NORMALS: normocephalic and atraumatic HEAD & SCALP: normocephalic and atraumatic Eye: COMMON NORMALS: Equal, round and reactive pupils present and EOMs intact bilaterally PUPIL: Yes Equal, round and reactive pupils present Neck/C-Spine: COMMON NORMALS: full ROM and supple Chest: COMMONS NORMALS: normal inspection of the chest and normal palpation of entire chest wall Resp: COMMON NORMALS: normal respiratory effort, No retractions, No use of accessory muscles and clear to auscultation bilaterally AUSCULTATION: clear to auscultation bilaterally Cardio: COMMON NORMALS: regular rate, regular rhythm and No murmurs present (Cardio) RATE: regular rate RHYTHM: regular rhythm GI: COMMON NORMALS: Normal to inspection, nondistended, normoactive bowel sounds present, Soft to palpation, non-tender and no masses PALPATION: Yes Soft to palpation Extremity: COMMON NORMALS: normal to inspection and full ROM Neuro: COMMON NORMALS: patient oriented x3, moves all extremities and no focal motor deficits Psych: COMMON NORMALS: mental status grossly normal, Normal thought process present and cooperative THOUGHT PROCESS: Normal thought process present Skin: COMMON NORMALS: no rashes or lesions noted and no wounds GENERAL SKIN EXAM: no rashes or lesions noted Course Vital Signs: Vital signs: Vital Signs Temperature 97.4 F L 02/20/21 15:11 Pulse Rate 86 02/20/21 15:11 Respiratory Rate 13 02/20/21 15:11 Blood Pressure 122/76 02/20/21 15:11 Pulse Oximetry 96 02/20/21 15:11 MDM - Chest Pain MDM Narrative: Medical decision making narrative: Patient presents for abdominal pain along with slight headache and chest pain chest pain is very atypical in nature troponins are normal CAT scan of abdomen here is normal blood work is all normal she does have meningioma and states she gets symptoms like this within the past head CT shows no acute findings she feels improved she is stable for discharge is to follow-up with PCP and return if worsening. Lab Data: Labs: Lab Results 02/20/21 02/20/21 02/20/21 11:50 11:50 11:50 WBC 5.9 10^3/uL 10^3/ uL (4.0-10.0) RBC 4.27 10^6/uL 10^6 /uL (4.1-5.3) Hgb 12.4 g/dL g/dL (11.5-15.3) Hct 38.5 % % (37.0-47.0) MCV 90.2 fl fl (81-99) MCH 29.0 pg pg (28.0-34.0) MCHC 32.2 g/dL g/dL (30.0-36.0) RDW 13.2 % % (12.1-15.1) Plt Count 347 10^3/cmm 10^3 /cmm (130-400) MPV 10.2 fL fL (7.4-10.4) Neut % (Auto) 62.0 % % Lymph % (Auto) 30.9 % % [place] % (Auto) 4.7 % % Eos % (Auto) 1.4 % % Baso % (Auto) 0.7 % % Neut # (Auto) 3.67 10^3/uL 10^3 /uL (1.8-7.7) Lymph # (Auto) 1.8 10^3/uL 10^3/ uL (0.8-4.8) [place] # (Auto) 0.3 10^3/uL 10^3/ uL (0.2-0.9) Eos # (Auto) 0.1 10^3/uL 10^3/ uL (0.0-0.8) Baso # (Auto) 0.0 10^3/uL 10^3/ uL (0.0-0.1) Nucleated RBC % (a uto) 0 % % Nucleated RBCs # 0.0 /100WBC /100W BC PT 13.00 SECONDS SEC ONDS (12.1-14.9) INR 0.95 (0.8-1.2) APTT 26.1 SECONDS SECO NDS (23.9-36.7) Sodium 135 mmol/L L mmol /L (136-145) Potassium 4.1 mmol/L mmol/L (3.5-5.1) Chloride 102 mmol/L mmol/L (98-107) Carbon Dioxide 24 mmol/L mmol/L (22-29) Anion Gap 13.1 (5-19) BUN 6 mg/dL mg/dL (6-20) Creatinine 0.7 mg/dL mg/dL (0.5-0.9) GFR Calculation 90.1 mL/min mL/mi n (90-130) Glucose 111 mg/dL mg/dL (65-115) Calculated Osmolal ity 278 mOsm/kg L mOs m/kg (285-295) Calcium 9.0 mg/dL mg/dL (8.5-10.5) Total Bilirubin 0.2 mg/dL mg/dL (0.15-1.2) AST 12 U/L U/L (0-32) ALT 20 U/L U/L (0-33) Alkaline Phosphata se 93 IU/L IU/L (35-105) Troponin T Baselin e Troponin T 120 Min resighini Delta Troponin T Total Protein 7.4 g/dL g/dL (6.6-8.7) Albumin 4.2 g/dL g/dL (3.5-5.2) Globulin 3.2 g/dL g/dL (1.3-4.6) Lipase 59 U/L U/L (13-60) 02/20/21 02/20/21 11:50 13:54 WBC RBC Hgb Hct MCV MCH MCHC RDW Plt Count MPV Neut % (Auto) Lymph % (Auto) [place] % (Auto) Eos % (Auto) Baso % (Auto) Neut # (Auto) Lymph # (Auto) [place] # (Auto) Eos # (Auto) Baso # (Auto) Nucleated RBC % (a uto) Nucleated RBCs # PT INR APTT Sodium Potassium Chloride Carbon Dioxide Anion Gap BUN Creatinine GFR Calculation Glucose Calculated Osmolal ity Calcium Total Bilirubin AST ALT Alkaline Phosphata se Troponin T Baselin e 6 ng/L ng/L (0-10) Troponin T 120 Min resighini 6.00 ng/L ng/L (0-10) Delta Troponin T 0 ABS# ABS# (0-10) Total Protein Albumin Globulin Lipase Imaging Data^: CXR: Attestation: I personally reviewed and interpreted this imaging study as follows: My impression: no acute abnormality CT Head: Attestation: I personally reviewed and interpreted this imaging study as follows: Radiologist's impression: [address] [address] [address] Scan Report Signed Patient: Stephanie Valentino Unit #: [id number] : 1975 Age/Sex: 46 / F ADM Date: 02/20/21 Loc: ER Room/Bed: Attending Dr: Ordering Provider/Ordering MD: Kartik Nesbitt MD Date of Service: 02/20/21 Procedure(s): CT head wo con* [id number] Accession Number(s): [id number] Report Number: [id number] WS: [id number] CT HEAD TECHNIQUE: Noncontrast CT of the head obtained from the skullbase to the vertex . CLINICAL INFORMATION: guzman COMPARISON: None. DLP: 757.[address] [facility] [place] use at least one of these dose optimization techniques: automated exposure control; mA and/or kV adjustment per patient size (includes targeted exams where dose is matched to clinical indication); or iterative reconstruction. FINDINGS: No evidence of intracranial hemorrhage or mass effect. Ventricular system and basal cisterns are patent. Left frontal 2.5 x 1.5 cm calcified meningioma is unchanged. Smaller suspected left parietal meningioma measuring 8 mm also unchanged. Left frontal meningioma demonstrates mild mass effect on the underlying brain parenchyma. No significant surrounding edema. This is unchanged in appearance. Slight reactive changes in the underlying inner table calvarium. No hydrocephalus or midline shift. Normal posterior fossa. Normal fourth ventricle. Mastoid air cells well aerated. Paranasal sinuses are well aerated. Normal visualized soft tissues. CT/CT head wo con* [id number] IMPRESSION: 1. Stable left frontal meningioma unchanged since the prior examination. Mild mass effect on the underlying brain parenchyma is unchanged. No surrounding edema. This can be followed up with MRI without and with gadolinium enhancement if indicated. 2. Additional smaller suspected meningioma along the left parietal calvarium measuring 8 mm is unchanged. 3. Overall no significant changes compared to August 07, 2020 Dictated By: Tyler Michaud MD Signed By: Tyler Michaud MD Signed Date/Time: 02/20/21 1331 DD/ 1320 CT Abd/Pel: Attestation: I personally reviewed and interpreted this imaging study as follows: Radiologist's impression: [address] [address] [address] Scan Report Signed Patient: Stephanie Valentino Unit #: [id number] : 1975 4 Age/Sex: 46 / F ADM Date: 02/20/21 Loc: ER Room/Bed: Attending Dr: Ordering Provider/Ordering MD: Kartik Nesbitt MD Date of Service: 02/20/21 Procedure(s): CT abdomen pelvis w con* [id number] Accession Number(s): [id number] Report Number: [id number] WS: [id number] CT ABDOMEN PELVIS TECHNIQUE: Contrast-enhanced CT of the abdomen and pelvis with coronal and sagittal reformatted images. CLINICAL INFORMATION: vomit COMPARISON: CT February 09, 2020 DLP: 1750.[address] scans at [facility] use at least one of these dose optimization techniques: automated exposure control; mA and/or kV adjustment per patient size (includes targeted exams where dose is matched to clinical indication); or iterative reconstruction. FINDINGS: Normal liver. Normal gallbladder. Normal spleen. Normal pancreatic parenchymal enhancement. Lung bases are well aerated. Adrenal glands are normal. Normal renal parenchymal enhancement. No hydronephrosis. Normal portal vein and splenic vein. Normal caliber abdominal aorta.Gastric rugal thickening with enhancement can be seen with gastritis. Tiny esophageal hiatal hernia. Sigmoid diverticulosis. No evidence of acute diverticulitis. No evidence of high-grade small or large bowel obstruction. Prior appendectomy. Tiny fat-containing umbilical hernia. Lobulated low-attenuation lesions in the dorsal uterus shown to represent fibroids on the prior ultrasound May 04, 2019 and unchanged in appearance since the prior CT February 09, 2020. No abdominal or pelvic lymphadenopathy. No inguinal lymphadenopathy. CT/CT abdomen pelvis w con* [id number] IMPRESSION: 1. Gastric rugal thickening with enhancement can be seen with gastritis. Tiny esophageal hiatal hernia. 2. Normal renal parenchymal enhancement. No hydronephrosis. 3. No free fluid in the abdomen or pelvis. 4. Stable fibroid uterus unchanged in appearance from previous 5. No other significant findings or changes from previous. EKG Data^: EKG 1: Attestation: I personally reviewed and interpreted this EKG as follows: EKG interpretation date: 02/20/21 EKG interpretation time: 10:24 Interpretation: nsr hr [address] or t wave abnormalities qrs 92 qtc 422 EKG 2: Attestation: I personally reviewed and interpreted this EKG as follows: EKG interpretation date: 02/20/21 EKG interpretation time: 11:39 Interpretation: sinus florecita [address] or t wave abnormalities qrs 96 qtc 441 Discharge Plan Discharge Patient Disposition: Home Clinical Impression: Headache Chest pain Qualifiers: Chest pain type: unspecified Qualified Code(s): R07.9 - Chest pain, unspecified Vomiting Qualifiers: Vomiting type: unspecified Vomiting Intractability: non-intractable Nausea presence: without nausea Qualified Code(s): R11.11 - Vomiting without nausea Condition: Stable Prescriptions: No Action Advil 200 mg Tablet 400 mg PO Q4H PRN (Reason: Pain) RF: 0 Discharge Orders: Discharge ED (Routine); Ordered 02/20/21 Ordered By: Kartik Nesbitt Discharge Diet: Advance as tolerated Discharge Activity: Resume usual activity Patient Instructions: Acute Nausea and Vomiting (ED) Coding Level of Care Code ED Financial Reporting Manager for Cristino Fwd Exam Comprehensive
[2021-02-20 11:42] VITALS: BP 118/82; PULSE 70; RESP 22; TEMP 36.7; O2SAT 100
[2021-02-20 12:10] VITALS: RESP 21; O2SAT 100
[2021-02-20] MEDS: morphine 4 mg/mL SDV 1 mL IVP (12:10)
[2021-02-20] MEDS: sodium chloride 0.9% 1,000 ML 999 ML IV (12:13)
[2021-02-20] MEDS: promethazine 25 mg/mL SDV 1 mL IM (12:14)
[2021-02-20 12:29] LABS: Basophils % 0.7 %; Eosinophils # 0.1 10^3/uL (0.0-0.8); Eosinophils % 1.4 %; Hematocrit 38.5 % (37.0-47.0); Hemoglobin 12.4 g/dL (11.5-15.3); Lymphocytes # 1.8 10^3/uL (0.8-4.8); Lymphocytes % 30.9 %; Mean Corpuscular HGB Conc 32.2 g/dL (30.0-36.0); Mean Corpuscular Volume 90.2 fl (81-99); Mean Platelet Volume 10.2 fL (7.4-10.4); Monocytes # 0.3 10^3/uL (0.2-0.9); Monocytes % 4.7 %; Neutrophils # 3.67 10^3/uL (1.8-7.7); Nucleated Red Blood Cells % 0 %; Platelet Count 347 10^3/cmm (130-400); Red Blood Count 4.27 10^6/uL (4.1-5.3); Red Cell Distribution Width 13.2 % (12.1-15.1); White Blood Count 5.9 10^3/uL (4.0-10.0)
[2021-02-20 12:31] LABS: INR 0.95 (0.8-1.2); Partial Thromboplastin Time 26.1 SECONDS (23.9-36.7)
--- NOTE | 2021-02-20 12:37 | ECG_ITS ---
[facility] Test Date: 2021-02-20 Pat Name: Stephanie Valentino Department: Room: Gender: Female Surface Water Manager: : 1975 Requested By: Felicia Maldonado Order Number: [id number] Lety MD: Katharina Guerrero M.D. Measurements Intervals [place] Rate: 70 P: 18 ME: 169 QRS: 6 QRSD: 92 T: 20 QT: 402 QTc: 435 Interpretive Statements SINUS RHYTHM POSSIBLE LEFT ATRIAL ENLARGEMENT [-0.1mV P-WAVE IN V1/V2] INCOMPLETE RIGHT BUNDLE BRANCH BLOCK [90+ ms QRS DURATION, TERMINAL R IN V1/V2, 40+ ms S IN I/aVL/V4/V5/V6] Compared to ECG 08/07/2020 13:30:01 No significant changes Electronically Signed On 02-20-2021 22:50:53 FAST FOOD SERVER by Katharina Guerrero M.D. [id number] f
[2021-02-20 12:49] LABS: Alanine Aminotransferase 20 U/L (0-33); Albumin Level 4.2 g/dL (3.5-5.2); Alkaline Phosphatase 93 IU/L (35-105); Anion Gap 13.1 (5-19); Aspartate Amino Transferase 12 U/L (0-32); Blood Urea Nitrogen 6 mg/dL (6-20); Carbon Dioxide 24 mmol/L (22-29); Chloride 102 mmol/L (98-107); Globulin 3.2 g/dL (1.3-4.6); Glomerular Filtration Rate 90.1 mL/min (90-130); Glucose 111 mg/dL (65-115); Lipase 59 U/L (13-60); Osmolality Calculated 278 mOsm/kg (285-295); Potassium 4.1 mmol/L (3.5-5.1); Sodium 135 mmol/L (136-145); Total Bilirubin 0.2 mg/dL (0.15-1.2); Total Protein 7.4 g/dL (6.6-8.7)
[2021-02-20 12:52] LABS: Troponin(5th) Baseline 6 ng/L (0-10)
--- NOTE | 2021-02-20 12:58 | CT_ITS ---
WS: [id number] CT HEAD TECHNIQUE: Noncontrast CT of the head obtained from the skullbase to the vertex. CLINICAL INFORMATION: guzman COMPARISON: None. DLP: 757.[address] scans at [facility] use at least one of these dose optimization techniques: automated e xposure control; mA and/or kV adjustment per patient size (includes targeted exams where dose is matc hed to clinical indication); or iterative reconstruction. FINDINGS: No evidence of intracranial hemorrhage or mass effect. Ventricular system and basal cisterns are kiran nt. Left frontal 2.5 x 1.5 cm calcified meningioma is unchanged. Smaller suspected left parietal meni ngioma measuring 8 mm also unchanged. Left frontal meningioma demonstrates mild mass effect on the un derlying brain parenchyma. No significant surrounding edema. This is unchanged in appearance. Slight reactive changes in the underlying inner table calvarium. No hydrocephalus or midline shift. Normal posterior fossa. Normal fourth ventricle. Mastoid air cells well aerated. Paranasal sinuses are well aerated. Normal visualized soft tissues. CT/CT head wo con* [id number] IMPRESSION: 1. Stable left frontal meningioma unchanged since the prior examination. Mild mass effect on the underlying brain parenchyma is unchanged. No surrounding raysa ma. This can be followed up with MRI without and with gadolinium enhancement if indicated. 2. Additional smaller suspected meningioma along the left parietal calvarium m easuring 8 mm is unchanged. 3. Overall no significant changes compared to August 07, 2020
--- NOTE | 2021-02-20 12:58 | CT_ITS ---
WS: [id number] CT ABDOMEN PELVIS TECHNIQUE: Contrast-enhanced CT of the abdomen and pelvis with coronal and sagittal reformatted image s. CLINICAL INFORMATION: vomit COMPARISON: CT February 09, 2020 DLP: 1750.[address] scans at [facility] use at least one of these dose optimization techniques: automated e xposure control; mA and/or kV adjustment per patient size (includes targeted exams where dose is matc hed to clinical indication); or iterative reconstruction. FINDINGS: Normal liver. Normal gallbladder. Normal spleen. Normal pancreatic parenchymal enhancement. Lung base s are well aerated. Adrenal glands are normal. Normal renal parenchymal enhancement. No hydronephrosi s. Normal portal vein and splenic vein. Normal caliber abdominal aorta.Gastric rugal thickening with enhancement can be seen with gastritis. Tiny esophageal hiatal hernia. Sigmoid diverticulosis. No evidence of acute diverticulitis. No evidence of high-grade small or large bowel obstruction. Prior appendectomy. Tiny fat-containing umbilical hernia. Lobulated low-attenuation lesions in the dorsal uterus shown to represent fibroids on the prior ultra sound May 04, 2019 and unchanged in appearance since the prior CT February 09, 2020. No abdominal or pelvic lymphadenopathy. No inguinal lymphadenopathy. CT/CT abdomen pelvis w con* [id number] IMPRESSION: 1. Gastric rugal thickening with enhancement can be seen with gastritis. Tiny esophageal hiatal hernia. 2. Normal renal parenchymal enhancement. No hydronephrosis. 3. No free fluid in the abdomen or pelvis. 4. Stable fibroid uterus unchanged in appearance from previous 5. No other significant findings or changes from previous.
[2021-02-20] MEDS: iohexol 300 mg/mL 100 mL Btl IV (13:07)
[2021-02-20 14:30] LABS: Troponin 5 2HR Delta 0 ABS# (0-10)
[2021-02-20 14:37] VITALS: BP 117/80; PULSE 65; RESP 20; TEMP 36.6; O2SAT 99
[2021-02-20] MEDS: metoclopramide 5 mg/mL SDV 2 mL 10 MG IVP (15:01)
[2021-02-20] MEDS: diphenhydrAMINE 50 mg/mL SDV 1mL IVP (15:03)
[2021-02-20 15:11] VITALS: BP 122/76; PULSE 86; RESP 13; TEMP 36.3; O2SAT 96
--- NOTE | 2021-02-20 16:37 | ECG_ITS ---
[facility] Test Date: 2021-02-20 Pat Name: Stephanie Valentino Department: Room: Gender: Female Joint Maker Machine: : 1975 Requested By: Felicia Maldonado Order Number: [id number] Lety MD: Katharina Guerrero M.D. Measurements Intervals [place] Rate: 63 P: 14 OR: 166 QRS: 7 QRSD: 94 T: 16 QT: 432 QTc: 444 Interpretive Statements SINUS RHYTHM INCOMPLETE RIGHT BUNDLE BRANCH BLOCK [90+ ms QRS DURATION, TERMINAL R IN V1/V2, 40+ ms S IN I/aVL/V4/V5/V6] Compared to ECG 08/07/2020 13:30:01 No significant changes Electronically Signed On 02-20-2021 22:51:09 MATERIAL REQUISITIONER by Katharina Guerrero M.D. [id number]
== END 2021-02-20 15:13 | disposition home or self-care (01) ==
PROVIDERS: Physician Assistant; Emergency Provider Emergency Medicine
DX: R07.9 Chest pain, unspecified (principal); R51.9 Headache, unspecified; R11.11 Vomiting without nausea
CPT/HCPCS: 36415; 70450; 71045; 74177; 80053; 83690; 84484; 85025; 85610; 85730; 93005; 96361; 96372; 96374; 96375; 99284; J1200; J2270; J2550; J2765; J7030; Q9967

== ENCOUNTER 2021-06-03 10:14 | Outpatient (CLI) | payer MEDICAID, SELFPAY ==
[2021-06-03 10:37] LABS: Basophils % 0.6 %; Eosinophils # 0.1 10^3/uL (0.0-0.8); Eosinophils % 1.9 %; Hematocrit 34.9 % (37.0-47.0); Lymphocytes # 1.5 10^3/uL (0.8-4.8); Lymphocytes % 31.1 %; Mean Corpuscular HGB Conc 31.5 g/dL (30.0-36.0); Mean Corpuscular Volume 92.1 fl (81-99); Mean Platelet Volume 9.5 fL (7.4-10.4); Monocytes # 0.4 10^3/uL (0.2-0.9); Monocytes % 7.5 %; Neutrophils # 2.83 10^3/uL (1.8-7.7); Neutrophils % 58.7 %; Nucleated Red Blood Cells % 0 %; Platelet Count 258 10^3/cmm (130-400); Red Blood Count 3.79 10^6/uL (4.1-5.3); Red Cell Distribution Width 14.6 % (12.1-15.1); White Blood Count 4.8 10^3/uL (4.0-10.0)
[2021-06-03 10:50] LABS: Partial Thromboplastin Time 24.3 SECONDS (23.9-36.7)
[2021-06-03 10:59] LABS: Alanine Aminotransferase 101 U/L (0-33); Albumin Level 4.7 g/dL (3.5-5.2); Alkaline Phosphatase 148 IU/L (35-105); Anion Gap 14.7 (5-19); Aspartate Amino Transferase 53 U/L (0-32); Blood Urea Nitrogen 12 mg/dL (6-20); Calcium 9.6 mg/dL (8.5-10.5); Carbon Dioxide 22 mmol/L (22-29); Chloride 106 mmol/L (98-107); Globulin 2.8 g/dL (1.3-4.6); Glomerular Filtration Rate 90.1 mL/min (90-130); Glucose 155 mg/dL (65-115); Osmolality Calculated 289 mOsm/kg (285-295); Potassium 4.7 mmol/L (3.5-5.1); Sodium 138 mmol/L (136-145); Total Bilirubin 0.2 mg/dL (0.15-1.2); Total Protein 7.5 g/dL (6.6-8.7)
[2021-06-03 11:12] LABS: Slide Review Slide Review Perform
[2021-06-03 14:25] LABS: LAB Peripheral Smear Sent for Review
[2021-06-06 12:46] LABS: Von Willebrand Factor AG 125 % (50-217)
== END 2021-06-03 10:15 | disposition home or self-care (01) ==
LOC: LAB 10:18
PROVIDERS: PCP Family Medicine; Visit Provider Family Medicine
DX: K92.0 Hematemesis (principal); K92.1 Melena; N64.52 Nipple discharge; N92.0 Excessive and frequent menstruation with regular cycle; R04.0 Epistaxis
CPT/HCPCS: 80053; 81000; 85025; 85246; 85610; 85730

== ENCOUNTER 2021-06-20 11:52 | Outpatient (CLI) | payer MEDICAID, SELFPAY ==
[2021-06-20 13:38] LABS: Alanine Aminotransferase 40 U/L (0-33); Aspartate Amino Transferase 21 U/L (0-32); Gamma Glutamyl Transferase 169 U/L (5-36); Lactate Dehydrogenase 171 U/L (135-214)
[2021-06-20 14:00] LABS: Hepatitis A Antibody IgM Non-Reactive (Nonreactive); Hepatitis B Core AB, Total Non-Reactive (Nonreactive); Hepatitis B Surface AB 838.1 (11.5-1000); Hepatitis B Surface Antigen Non-Reactive (Nonreactive); Hepatitis C Virus Antibody Non-Reactive (Nonreactive)
== END 2021-06-20 11:53 | disposition home or self-care (01) ==
LOC: LAB 12:00
PROVIDERS: PCP Family Medicine; Visit Provider Family Medicine
DX: K92.0 Hematemesis (principal); K92.1 Melena; R04.0 Epistaxis; R74.8 Abnormal levels of other serum enzymes
CPT/HCPCS: 82977; 83615; 84450; 84460; 86705; 86706; 86709; 86803; 87340

== ENCOUNTER 2021-07-12 06:47 | Day surgery (SDC) | payer MEDICAID, SELFPAY ==
[2021-07-10 08:48] VITALS: BMI 31.1
--- NOTE | 2021-07-12 07:13 | ANES.PREANE2 ---
Pre-Anesthetic Assessment Height/Weight: Height 1.6 m Weight 79.832 kg Preop Diagnosis: Hematemesis and hematochezia Operation Date: 07/12/21 08:30 Proposed Procedures p Colonoscopy 69125/K9201 hemathemesis, R10.9 abd pain,K92.1 melena(Not Applicable) - Luis Yan MD Familial anesthetic complications: None Was Beta Yoon taken within 24 hours: N/A Was Clonidine taken within 24 hours: N/A Last intake: 8 hrs Social No alcohol and No tobacco Exam alert, oriented x 3, clear to auscultation bilaterally and regular rate & rhythm Airway Mallampati: Class I Dentition: full Pulmonary None reported CV/HEM Myocardial Infarction (at age 40) Was told she had a mini-heart attack in ER and went to ICU for 3 days - no stent required. Cardiology work up has been negative and she has stopped any further cardiac medications Hepatic elevated LFTS sometimes Neuropsych meningiomas (X2) - does have headaches, states one on the left is inoperable and has had it for 10 years Anesthetic Plan ASA status: 3 Anesthesia: MAC Risk of > 500 ml blood loss (7ml/kg in children): No Medications/Allergies Home Medications Medication Instructions Recorded Confirmed Last Taken Type No Known Home Medications 07/10/21 07/10/21 Unknown History Allergies Allergy/AdvReac Type Severity Reaction Status Date / Time tramadol Allergy Severe seizures Verified 06/19/21 10:57 [facility] Anesthesia Medical History (Updated 06/19/21 @ 11:12 by Pancho Vital DO) Heavy menses Pelvic pain in female Family History Father Diabetes Hypertension Social History Smoking and tobacco status: never smoked Alcohol intake: current Alcohol intake frequency: holidays/special occasions only Female Reproductive History Date of last menstrual period: 01/15/20 Data Anesthesia Cardiac Studies: No Data to Display
[2021-07-12 07:49] VITALS: BP 125/76; PULSE 93; RESP 18; TEMP 36.1; O2SAT 98
[2021-07-12] MEDS: sodium chloride 0.9% 1,000 ML 30 ML IV (07:49)
--- NOTE | 2021-07-12 08:54 | P.HP_ITS ---
Same Day Surgery H&P Indication for Procedure/HPI DATE OF PROCEDURE: July 12, 2021 CHIEF COMPLAINT/INDICATIONFOR SURGICAL PROCEDURE: I am bleeding PREOP DIAGNOSIS: Hematemesis and hematochezia PLANNED PROCEDURE: Operation Date: 07/12/21 08:30 Proposed Procedures p Colonoscopy 45852/K9201 hemathemesis, R10.9 abd pain,K92.1 melena(Not Applicable) - Luis Yan MD 05/20/2021 This is a pleasant 46 years old female patient comes with broad spectrum of symptomatology including but not limited to history of hematemesis and hematochezia the past 6 to 8 months.? Treated with crampy abdominal pain sometimes being dull and sharp, diffuse gets worse with nothing and just gets better on its own.? Patient also mentioned that she has been having heavy vaginal bleeding but she was not seen by women's health. Patient undergone a CT scan of the abdomen pelvis back on February 2021 that did show 1.? Gastric rugal thickening with enhancement can be seen with gastritis. Tiny esophageal hiatal hernia. 2.? Normal renal parenchymal enhancement. No hydronephrosis. 3.? No free fluid in the abdomen or pelvis. 4.? Stable fibroid uterus unchanged in appearance from previous 5.? No other significant findings or changes from previous. Patient is referred to my practice today for further evaluation potential management, also the patient describes that she had bouts of epistaxis but it is not clear for me if she has been evaluated by hematology in the past. 07/12/2021 Patient comes today for diagnostic EGD and colonoscopy ROS All systems have been reviewed negative except as per the above or per problem list Medications/Allergies* Home Medications Medication Instructions Recorded Confirmed Type No Known Home Medications 07/10/21 07/10/21 History Allergies/Adverse Reactions Allergy/AdvReac Type Severity Reaction Status Date / Time tramadol Allergy Severe seizures Verified 07/12/21 08:55 Current Medications: Generic Name Dose Route Start Last Admin Trade Name Freq PRN Reason Stop Dose Admin Sodium Chloride 1,000 mls @ 30 mls/hr 07/12/21 07:00 07/12/21 07:49 Sodium Chloride 0.9% IV 07/13/21 06:59 30 mls/hr .Q24H DAYANA Administration Pertinent History/Comorbid Conditions* Medical History (Updated 06/19/21 @ 11:12 by Pancho Vital DO) Heavy menses Pelvic pain in female Family History (Updated 04/25/19 @ 09:07 by Rhonda Estrada RN) Diabetes Father Hypertension Father Social History Smoking and tobacco status: never smoked Alcohol intake: current Alcohol intake frequency: holidays/special occasions only Pertinent Exam Findings alert, oriented x 3, regular rate & rhythm and procedure specific exam findings (Abdominal examination nontender nondistended soft) Recommendations Surgery/Procedure today (Diagnostic EGD and colonoscopy) Coding Level of Care Code Acute Track Repair Laborer for Chg Moraima
[2021-07-12 09:26] VITALS: BP 106/75; PULSE 76; RESP 16; TEMP 36.1; O2SAT 96
[2021-07-12 09:40] VITALS: BP 131/95; PULSE 83; RESP 18; O2SAT 98
[2021-07-12 09:41] LABS: OR HCG Qualitative Urine Negative (Negative)
== END 2021-07-12 10:04 | disposition home or self-care (01) ==
PROVIDERS: Anesthesiology; PCP Family Medicine; Visit Provider Surgery
PROC: 0DJD8ZZ Inspection of Lower Intestinal Tract, Via Natural or Artificial Opening Endoscopic (ICD-10-PCS; CPT 45378; principal; 2021-07-12 08:30)
PROC: 0DJ08ZZ Inspection of Upper Intestinal Tract, Via Natural or Artificial Opening Endoscopic (ICD-10-PCS; CPT 43235; 2021-07-12 08:30)
DX: K92.0 Hematemesis (principal); R10.9 Unspecified abdominal pain; K92.1 Melena; Z82.49 Family history of ischemic heart disease and other diseases of the circulatory system; Z83.3 Family history of diabetes mellitus; K44.9 Diaphragmatic hernia without obstruction or gangrene; K29.70 Gastritis, unspecified, without bleeding; K29.80 Duodenitis without bleeding; I25.2 Old myocardial infarction
CPT/HCPCS: 43239; 45378; 84703; 88305; J2704; J7030

== ENCOUNTER 2021-08-04 17:48 | Emergency (ER) | payer MEDICAID, SELFPAY ==
[2021-08-04 18:18] VITALS: BP 151/100; PULSE 97; RESP 15; TEMP 37.3; O2SAT 97; BMI 32.4
--- NOTE | 2021-08-04 18:59 | USR_ITS ---
PROCEDURE INFORMATION: Exam: US Nonobstetric Pelvis; Complete Exam date and time: 08/04/2021 7:52 PM Age: 46 years old Clinical indication: Pelvic pain; Additional info: Left pelvic pain TECHNIQUE: Imaging protocol: Transabdominal pelvic nonobstetric ultrasound. Complete exam. Real time ultrasound with image documentation. COMPARISON: CT abdomen pelvis w con* [id number] 02/20/2021 1:16 PM FINDINGS: Uterus: Endometrium not well characterized and not measured. Poorly defined 4.2 cm hypoechoic area in the posterior uterine body suggestive of a cystic fibroid as was seen on prior CT scan. Right ovary/adnexa: Ovary is normal. No mass. Normal blood flow. Left ovary/adnexa: Ovary is normal. No mass. Normal blood flow. Intraperitoneal space: No intraperitoneal fluid. Urinary bladder: Normal. US/US pelvic complete* [id number] IMPRESSION: Poorly defined 4.2 cm hypoechoic area in the posterior uterine body suggestive of a cystic fibroid as was seen on prior CT scan.
--- NOTE | 2021-08-04 19:02 | ED_ITS ---
HPI - General Adult General: Chief complaint: General Medical Stated complaint: Knot on Hip Time Seen by Provider: 08/04/21 18:26 History of Present Illness: Patient is a 46-year-old female comes to the ED with left pelvic pain. Symptoms started yesterday. She has a tender area in t he left pelvic region and she rates the pain an 8 out of 10. She describes it as a sharp aching pain and it worsens when touched. Over the past several months she has had problems with heavy vaginal bleeding but for the past 2 weeks she has not had any vaginal bleeding. She also says she has had blood in her urine a couple weeks ago but that has since resolved. She endorses having some nausea and vomited once last night. Associated symptoms: Reports nausea and vomiting; Deny chest pain, dyspnea, headache(s), rash or palpitations Review of Systems Const: Denies: fever(s), chills or fatigue Eyes: Denies: change in vision or eye discomfort ENMT: Denies: throat pain, odynophagia, nasal discharge or nasal congestion Card: Denies: chest pain, palpitations, edema, swelling of feet/ankles, dy spnea on exertion or orthopnea Resp: Denies: dyspnea, productive cough or non-productive cough GI: Reports: nausea and vomiting; Denies: abdominal pain, diarrhea, constipation or hematochezia : Reports: pelvic pain (Left pelvic pain); Denies: flank pain, dysuria or hematuria Musc: Denies: neck pain, back pain or extremity swelling Skin/Breast: Denies: rash or new lesions Neuro: Denies: headache(s), numbness in extremities or weakness in extremities [facility] ED PFSH: Medical History Heavy menses Pelvic pain in female Family History Father Diabetes Hypertension Social History Smoking and tobacco status: never smoked Alcohol intake: current Alcohol intake frequency: holidays/special occasions only Female Reproductive History: Date of last menstrual period: 01/15/20 Physical Exam Const: COMMON NORMALS: no acute distress and patient oriented x3 GENERAL APPEARANCE: cooperative and comfortable HENMT: COMMON NORMALS: normocephalic HEAD & SCALP: normocephalic MOUTH: Normal oral and palatal mucosa present THROAT: posterior oropharynx normal and uvula midline Eye: COMMON NORMALS: Equal, round and reactive pupils present and conjunctivae normal CONJUNCTIVA: Yes conjunctivae normal PUPIL: Yes Equal, round and reactive pupils present Neck/C-Spine: COMMON NORMALS: supple GENERAL: Yes normal visual inspection Resp: COMMON NORMALS: normal respiratory effort, No retractions, No use of accessory muscles and clear to auscultation bilaterally AUSCULTATION: clear to auscultation bilaterally Cardio: COMMON NORMALS: regular rate, regular rhythm, S1 normal heart sound present, S2 normal heart sound present, No gallops present (Cardio), No clicks present (Cardio), No murmurs present (Cardio) and Peripheral pulses 2+ throughout RATE: regular rate RHYTHM: regular rhythm HEART SOUNDS: S1 normal heart sound present and S2 normal heart sound present PERIPHERAL PULSES: Peripheral pulses 2+ throughout GI: COMMON NORMALS: Normal to inspection, nondistended, normoactive bowel sounds present, Soft to palpation, non-tender and no masses PALPATION: Yes Soft to palpation OTHER: Tenderness to palpation over left pelvic region. : COMMON NORMALS: Yes no CVA tenderness BLADDER/KIDNEY EXAM: Yes no CVA tenderness Back/Pelvis: COMMON NORMALS: no CVA tenderness Extremity: COMMON NORMALS: normal to inspection Neuro: COMMON NORMALS: patient oriented x3 and moves all extremities Skin: GENERAL SKIN EXAM: dry skin Course Vital Signs: Vital signs: Vital Signs Temperature 98.7 F 08/04/21 22:27 Pulse Rate 87 08/04/21 22:27 Respiratory Rate 18 08/04/21 22:27 Blood Pressure 148/88 08/04/21 22:27 Pulse Oximetry 98 08/04/21 22:27 [facility] General Adult Medical Decision Making Patient is a 46-year-old female comes to the ED with left pelvic pain, nausea and vomiting. Patient appears nontoxic and in no acute distress or pain. She does have a history of some heavy menses bleeding. Denies any active vaginal bleeding, vaginal discharge, constipation, blood in stool, diarrhea, dysuria or hematuria. Vitals are stable. Patient appears nontoxic and in no acute distress or pain. She has some mild left pelvic tenderness to palpation but rest of exam is benign. Labs are unremarkable. Ultrasound of the pelvis shows no new acute findings but noted a possible cystic fibroid on the posterior uterine body that was seen on previous CT scans. Patient was diagnosed with pelvic pain was discharged home with a prescription for Zofran for nausea and some hydrocodone for pain. She was told to follow-up with her PCP in the next week for reevaluation of pelvic pain. Return to ED precautions given. Patient understood and agreed with plan. Lab Data I reviewed the patient's lab results. : 08/04/21 19:15 08/04/21 19:15 Radiology Impressions Pelvis Ultrasound 08/04/21 18:59 IMPRESSION: Poorly defined 4.2 cm hypoechoic area in the posterior uterine body suggestive of a cystic fibroid as was seen on prior CT scan. Laboratory Results WBC 8.0 10^3/uL (4.0-10.0) 08/04/21 19:15 RBC 3.92 10^6/uL (4.1-5.3) L 08/04/21 19:15 Hgb 11.5 g/dL (11.5-15.3) 08/04/21 19:15 Hct 35.8 % (37.0-47.0) L 08/04/21 19:15 MCV 91.3 fl (81-99) 08/04/21 19:15 MCH 29.3 pg (28.0-34.0) 08/04/21 19:15 MCHC 32.1 g/dL (30.0-36.0) 08/04/21 19:15 RDW 13.8 % (12.1-15.1) 08/04/21 19:15 Plt Count 333 10^3/cmm (130-400) 08/04/21 19:15 MPV 9.7 fL (7.4-10.4) 08/04/21 19:15 Neut % (Auto) 60.3 % 08/04/21 19:15 Lymph % (Auto) 31.3 % 08/04/21 19:15 [place] % (Auto) 6.1 % 08/04/21 19:15 Eos % (Auto) 1.2 % 08/04/21 19:15 Baso % (Auto) 0.6 % 08/04/21 19:15 Neut # (Auto) 4.82 10^3/uL (1.8-7.7) 08/04/21 19:15 Lymph # (Auto) 2.5 10^3/uL (0.8-4.8) 08/04/21 19:15 [place] # (Auto) 0.5 10^3/uL (0.2-0.9) 08/04/21 19:15 Eos # (Auto) 0.1 10^3/uL (0.0-0.8) 08/04/21 19:15 Baso # (Auto) 0.1 10^3/uL (0.0-0.1) 08/04/21 19:15 Nucleated RBC % (auto) 0 % 08/04/21 19:15 Nucleated RBCs # 0.0 /100WBC 08/04/21 19:15 Sodium 137 mmol/L (136-145) 08/04/21 19:15 Potassium 3.8 mmol/L (3.5-5.1) 08/04/21 19:15 Chloride 101 mmol/L (98-107) 08/04/21 19:15 Carbon Dioxide 23 mmol/L (22-29) 08/04/21 19:15 Anion Gap 16.8 (5-19) 08/04/21 19:15 BUN 10 mg/dL (6-20) 08/04/21 19:15 Creatinine 0.7 mg/dL (0.5-0.9) 08/04/21 19:15 GFR Calculation 90.1 mL/min (90-130) 08/04/21 19:15 Glucose 91 mg/dL (65-115) 08/04/21 19:15 Calculated Osmolality 283 mOsm/kg (285-295) L 08/04/21 19:15 Calcium 9.5 mg/dL (8.5-10.5) 08/04/21 19:15 Total Bilirubin 0.2 mg/dL (0.15-1.2) 08/04/21 19:15 AST 15 U/L (0-32) 08/04/21 19:15 ALT 22 U/L (0-33) 08/04/21 19:15 Alkaline Phosphatase 97 IU/L (35-105) 08/04/21 19:15 Total Protein 8.2 g/dL (6.6-8.7) 08/04/21 19:15 Albumin 4.4 g/dL (3.5-5.2) 08/04/21 19:15 Globulin 3.8 g/dL (1.3-4.6) 08/04/21 19:15 Lipase 50 U/L (13-60) 08/04/21 19:15 Urine Color Yellow (Yellow) 08/04/21 19:15 Urine Appearance Clear (CLEAR) 08/04/21 19:15 Urine pH 5 (5-7) 08/04/21 19:15 Ur Specific [place] 1.010 (1.005-1.030) 08/04/21 19:15 Urine Protein Neg (Negative) 08/04/21 19:15 Urine Glucose (UA) Norm (Normal) 08/04/21 19:15 Urine Ketones Negative (Negative) 08/04/21 19:15 Urine Blood Neg (Negative) 08/04/21 19:15 Urine Nitrate Negative (Negative) 08/04/21 19:15 Urine Bilirubin Neg (Negative) 08/04/21 19:15 Urine Urobilinogen Norm mg/dL (Negative) 08/04/21 19:15 Ur Leukocyte Esterase Negative (Negative) 08/04/21 19:15 Urine HCG, Qual Negative (Negative) 08/04/21 19:15 Discharge Plan Discharge Patient Disposition: Home Clinical Impression: Pelvic pain in female Condition: Stable Prescriptions: New ondansetron 4 mg tablet,disintegrating 4 mg PO Q8H PRN (Reason: nausea and vomiting) Qty: 20 0RF No Action Protonix 40 mg tablet,delayed release (DR/EC) 40 mg PO DAILY 30 Days Qty: 30 3RF Discharge Orders: Discharge ED (Routine); Ordered 08/04/21 Ordered By: Brien Francisco Referrals: Pancho Vital DO [Primary Care Provider] - Discharge Diet: Advance as tolerated Discharge Activity: Increase activity as tolerated Patient Instructions: Pelvic Pain in Women (ED), Opioid Safety Activity Restrictions/Additional Instructions: Follow-up with medical provider as directed in the next 5 to 7 days for reevaluation. Take medications as prescribed. Return to the ER or your medical provider if condition worsens. Please read and understand discharge instructions. Thank you for choosing [facility] for your healthcare needs today. Please realize this is an emergency room and that we are providing you with a medical screening exam and this may not be complete and all inclusive of all the testing and or work up that you may need to determine your ailment or severity of your illness. It is very important that you follow up as instructed or that you return to the Emergency Department should you have concerns or if your condition changes or worsens in any way. Coding Level of Care Code ED Staff Counsel for Cristino Valera Exam Comprehensive
[2021-08-04] MEDS: sodium chloride 0.9% 500 ML 999 ML IV (19:24)
[2021-08-04 19:26] LABS: Hematocrit 35.8 % (37.0-47.0); Hemoglobin 11.5 g/dL (11.5-15.3); Red Blood Count 3.92 10^6/uL (4.1-5.3)
[2021-08-04 19:27] LABS: Basophils # 0.1 10^3/uL (0.0-0.1); Basophils % 0.6 %; Eosinophils # 0.1 10^3/uL (0.0-0.8); Eosinophils % 1.2 %; Lymphocytes # 2.5 10^3/uL (0.8-4.8); Lymphocytes % 31.3 %; Mean Corpuscular HGB Conc 32.1 g/dL (30.0-36.0); Mean Corpuscular Hemoglobin 29.3 pg (28.0-34.0); Mean Corpuscular Volume 91.3 fl (81-99); Mean Platelet Volume 9.7 fL (7.4-10.4); Monocytes # 0.5 10^3/uL (0.2-0.9); Monocytes % 6.1 %; Neutrophils # 4.82 10^3/uL (1.8-7.7); Neutrophils % 60.3 %; Nucleated Red Blood Cells % 0 %; Platelet Count 333 10^3/cmm (130-400); Red Cell Distribution Width 13.8 % (12.1-15.1)
[2021-08-04 19:37] LABS: Add Urine Microscopic? NO; Charge for UA Resulting for Rev
[2021-08-04 19:47] VITALS: RESP 16
[2021-08-04] MEDS: morphine 4 mg/mL SDV 1 mL IVP (19:47)
[2021-08-04] MEDS: ondansetron 2 mg/ML SDV 2 mL 4 MG IVP (19:47)
[2021-08-04 19:53] LABS: Bilirubin Urine Neg (Negative); Blood Urine Neg (Negative); Glucose Urine UA Norm (Normal); Ketones Urine Negative (Negative); Leukocyte Esterase Urine Negative (Negative); Nitrate Urine Negative (Negative); Protein Urine Neg (Negative); Urine Appearance Clear (CLEAR); Urine Color Yellow (Yellow); Urobilinogen Urine Norm (Negative); pH Urine 5 (5-7)
[2021-08-04 20:11] LABS: Alanine Aminotransferase 22 U/L (0-33); Albumin Level 4.4 g/dL (3.5-5.2); Alkaline Phosphatase 97 IU/L (35-105); Anion Gap 16.8 (5-19); Aspartate Amino Transferase 15 U/L (0-32); Blood Urea Nitrogen 10 mg/dL (6-20); Calcium 9.5 mg/dL (8.5-10.5); Carbon Dioxide 23 mmol/L (22-29); Chloride 101 mmol/L (98-107); Globulin 3.8 g/dL (1.3-4.6); Glomerular Filtration Rate 90.1 mL/min (90-130); Glucose 91 mg/dL (65-115); Lipase 50 U/L (13-60); Osmolality Calculated 283 mOsm/kg (285-295); Potassium 3.8 mmol/L (3.5-5.1); Sodium 137 mmol/L (136-145); Total Bilirubin 0.2 mg/dL (0.15-1.2); Total Protein 8.2 g/dL (6.6-8.7)
[2021-08-04] MEDS: ketorolac 30 mg/mL INJ IVP (20:50)
[2021-08-04 22:27] VITALS: BP 148/88; PULSE 87; RESP 18; TEMP 37.1; O2SAT 98
== END 2021-08-04 22:28 | disposition home or self-care (01) ==
PROVIDERS: Emergency Provider Physician Assistant; PCP Family Medicine
DX: R10.2 Pelvic and perineal pain (principal)
CPT/HCPCS: 76856; 80053; 81003; 81025; 83690; 85025; 96361; 96374; 96375; 99284; J1885; J2270; J2405; J7040

== ENCOUNTER 2021-12-22 16:48 | Emergency (ER) | payer MEDICAID, SELFPAY ==
[2021-12-22 16:51] VITALS: BP 148/94; PULSE 118; RESP 21; TEMP 37.1; O2SAT 99; BMI 34.5
--- NOTE | 2021-12-22 16:57 | ECG_ITS ---
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 Measurements Intervals [place] Rate: 107 P: 18 ME: 139 QRS: 14 QRSD: 86 T: 28 QT: 328 QTc: 439 Interpretive Statements SINUS TACHYCARDIA POSSIBLE RIGHT VENTRICULAR CONDUCTION DELAY [RSR (QR) IN V1/V2] ABNORMAL RHYTHM ECG Compared to ECG 02/20/2021 11:39:09 Sinus bradycardia no longer present Incomplete right bundle-branch block no longer present Electronically Signed On 12-23-2021 7:35:05 CDT by Mario Morrison M.D. [id number]
--- NOTE | 2021-12-22 17:23 | XRR_ITS ---
PROCEDURE INFORMATION: Exam: XR Chest Exam date and time: 12/22/2021 5:35 PM Age: 46 years old Clinical indication: Pain; Chest pressure; Additional info: Left sided chest pain TECHNIQUE: Imaging protocol: Radiologic exam of the chest. Views: 2 views. COMPARISON: CR XR chest 1V portable [id number] 02/20/2021 10:49 AM FINDINGS: Lungs: Unremarkable. No consolidation. Pleural spaces: Unremarkable. No pleural effusion. No pneumothorax. Heart/Mediastinum: Unremarkable. No cardiomegaly. Bones/joints: Unremarkable. XR/XR chest 2V* [id number] IMPRESSION: No acute findings.
--- NOTE | 2021-12-22 17:29 | ED_ITS ---
HPI - Chest Pain General: Chief Complaint: Chest Pain Stated Complaint: left chest pain Time Seen by Provider: 12/22/21 16:59 History of Present Illness: 46-year-old female presents with left-sided pain in her chest/breast area. That radiates back to her shoulder. She reports is been going on constantly for about a day. Nothing seems to make it worse or better. She does report she is having a cough, headache and generally just does not feel well. Patient has no reports of fever or chills. Associated symptoms: Reports dyspnea and nausea; Deny abdominal pain, fever(s), palpitations or vomiting Review of Systems Const: Denies: fever(s) or chills Card: Reports: chest pain; Denies: palpitations Resp: Reports: dyspnea and non-productive cough GI: Reports: nausea; Denies: abdominal pain or vomiting : Denies: flank pain or dysuria Musc: Denies: neck pain or back pain Skin/Breast: Denies: rash or pruritus Neuro: Reports: headache(s); Denies: dizziness Psych: Denies: anxiety or depression PFS ED PFSH: Medical History Heavy menses Pelvic pain in female Family History Father Diabetes Hypertension Social History Smoking and tobacco status: never smoked Alcohol intake: current Alcohol intake frequency: holidays/special occasions only Female Reproductive History: Date of last menstrual period: 01/15/20 Physical Exam Const: COMMON NORMALS: patient oriented x3 and alert Eye: COMMON NORMALS: Equal, round and reactive pupils present and EOMs intact bilaterally PUPIL: Yes Equal, round and reactive pupils present Neck/C-Spine: COMMON NORMALS: full ROM and no meningeal signs Resp: COMMON NORMALS: normal respiratory effort and No use of accessory muscles AUSCULTATION: bronchial breath sounds bilateral Cardio: COMMON NORMALS: regular rhythm RATE: tachycardic RHYTHM: regular rhythm GI: COMMON NORMALS: Soft to palpation and non-tender PALPATION: Yes Soft to palpation Extremity: COMMON NORMALS: normal to inspection and full ROM Neuro: COMMON NORMALS: patient oriented x3, moves all extremities, no focal motor deficits and no sensory deficits noted SENSORIUM/ORIENTATION: Yes alert MENINGEAL SIGNS: Yes no meningeal signs Psych: COMMON NORMALS: mental status grossly normal and cooperative Skin: COMMON NORMALS: no rashes or lesions noted GENERAL SKIN EXAM: no rashes or lesions noted Course Vital Signs: Vital signs: Vital Signs Temperature 98.8 F 12/22/21 16:51 Pulse Rate 72 12/22/21 18:48 Respiratory Rate 14 12/22/21 18:48 Blood Pressure 123/65 12/22/21 18:48 Pulse Oximetry 97 12/22/21 18:48 Oxygen Delivery Me thod 12/22/21 18:22 MDM - Chest Pain Medical Decision Making Patient positive for COVID. Her oxygen saturations are in the upper 90s. Heart rate improved with some pain control. Patient with negative chest x-ray. Patient will be prescribed Paxil over which she can start in the morning. She should follow-up with her primary care provider as needed. Return to the ER with worsening symptoms. Patient stable and discharged Lab Data : 12/22/21 17:00 12/22/21 17:00 Radiology Impressions Chest X-Ray 12/22/21 17:23 IMPRESSION: No acute findings. Laboratory Results WBC 9.2 10^3/uL (4.0-10.0) 12/22/21 17:00 RBC 4.26 10^6/uL (4.1-5.3) 12/22/21 17:00 Hgb 12.3 g/dL (11.5-15.3) 12/22/21 17:00 Hct 39.3 % (37.0-47.0) 12/22/21 17:00 MCV 92.3 fl (81-99) 12/22/21 17:00 MCH 28.9 pg (28.0-34.0) 12/22/21 17:00 MCHC 31.3 g/dL (30.0-36.0) 12/22/21 17:00 RDW 13.9 % (12.1-15.1) 12/22/21 17:00 Plt Count 295 10^3/cmm (130-400) 12/22/21 17:00 MPV 9.5 fL (7.4-10.4) 12/22/21 17:00 Neut % (Auto) 67.8 % 12/22/21 17:00 Lymph % (Auto) 20.7 % 12/22/21 17:00 [place] % (Auto) 7.6 % 12/22/21 17:00 Eos % (Auto) 1.1 % 12/22/21 17:00 Baso % (Auto) 0.7 % 12/22/21 17:00 Neut # (Auto) 6.21 10^3/uL (1.8-7.7) 12/22/21 17:00 Lymph # (Auto) 1.9 10^3/uL (0.8-4.8) 12/22/21 17:00 [place] # (Auto) 0.7 10^3/uL (0.2-0.9) 12/22/21 17:00 Eos # (Auto) 0.1 10^3/uL (0.0-0.8) 12/22/21 17:00 Baso # (Auto) 0.1 10^3/uL (0.0-0.1) 12/22/21 17:00 Nucleated RBC % (auto) 0 % 12/22/21 17:00 Nucleated RBCs # 0.0 /100WBC 12/22/21 17:00 Sodium 135 mmol/L (136-145) L 12/22/21 17:00 Potassium 3.7 mmol/L (3.5-5.1) 12/22/21 17:00 Chloride 97 mmol/L (98-107) L 12/22/21 17:00 Carbon Dioxide 26 mmol/L (22-29) 12/22/21 17:00 Anion Gap 15.7 (5-19) 12/22/21 17:00 BUN 17 mg/dL (6-20) 12/22/21 17:00 Creatinine 0.9 mg/dL (0.5-0.9) 12/22/21 17:00 GFR Calculation 67.4 mL/min (90-130) L 12/22/21 17:00 Glucose 100 mg/dL (65-115) 12/22/21 17:00 Calculated Osmolality 282 mOsm/kg (285-295) L 12/22/21 17:00 Calcium 9.6 mg/dL (8.5-10.5) 12/22/21 17:00 Magnesium 2.0 mg/dL (1.7-2.3) 12/22/21 17:00 Total Bilirubin 0.4 mg/dL (0.15-1.2) 12/22/21 17:00 AST 18 U/L (0-32) 12/22/21 17:00 ALT 61 U/L (0-33) H 12/22/21 17:00 Alkaline Phosphatase 107 U/L (35-105) H 12/22/21 17:00 C-Reactive Protein 8.0 mg/L (0.0-4.9) H 12/22/21 17:00 Total Protein 7.5 g/dL (6.6-8.7) 12/22/21 17:00 Albumin 4.4 g/dL (3.5-5.2) 12/22/21 17:00 Globulin 3.1 g/dL (1.3-4.6) 12/22/21 17:00 Urine Color Yellow (Yellow) 12/22/21 17:33 Urine Appearance Clear (CLEAR) 12/22/21 17:33 Urine pH 7 (5-7) 12/22/21 17:33 Ur Specific [place] 1.005 (1.005-1.030) 12/22/21 17:33 Urine Protein Neg (Negative) 12/22/21 17:33 Urine Glucose (UA) Norm (Normal) 12/22/21 17:33 Urine Ketones Negative (Negative) 12/22/21 17:33 Urine Blood Neg (Negative) 12/22/21 17:33 Urine Nitrate Negative (Negative) 12/22/21 17:33 Urine Bilirubin Neg (Negative) 12/22/21 17:33 Urine Urobilinogen Norm mg/dL (Negative) 12/22/21 17:33 Ur Leukocyte Esterase Negative (Negative) 12/22/21 17:33 SARS-CoV-2 Ag (Rapid) Positive (Negative) H 12/22/21 18:07 EKG Data EKG 1: I personally reviewed and interpreted this EKG as follows: EKG interpretation date: 12/22/21 EKG interpretation time: 16:57 Interpretation: sinus tach, hr 107, no acute st changes, pr 139, qrs 86 Discharge Plan Discharge Patient Disposition: Home Clinical Impression: COVID-19 Condition: Stable Prescriptions: New Paxlovid (EUA) 150 mg x 2- 100 mg tablet See Rx Instructions .ROUTE .COMPLEX Qty: 30 0RF Rx Instructions: orally per package directions No Action ondansetron 4 mg tablet,disintegrating 4 mg PO Q8H PRN (Reason: nausea and vomiting) Qty: 30 5RF prednisone 20 mg tablet 60 mg PO DAILY Qty: 30 0RF Discharge Orders: Discharge ED (Routine); Ordered 12/22/21 Ordered By: Brenden Acharya Referrals: Pancho Vital, [Primary Care Provider] - Discharge Diet: Usual diet Discharge Activity: Increase activity as tolerated Patient Instructions: Opioid Safety, Pain Management, COVID-19 (Coronavirus Disease 2019) (ED) Activity Restrictions/Additional Instructions: Follow-up with your primary care provider as needed, return to the ER if your O2 saturations get to 90 or below. Coding Level of Care Code ED Mortgage Collector for Cristino Fwpema Exam Comprehensive
[2021-12-22] MEDS: ketorolac 30 mg/mL INJ 15 MG IVP (17:56)
[2021-12-22] MEDS: sodium chloride 0.9% 1,000 ML 999 ML IV (17:56)
[2021-12-22 17:57] LABS: Basophils # 0.1 10^3/uL (0.0-0.1); Basophils % 0.7 %; Eosinophils # 0.1 10^3/uL (0.0-0.8); Eosinophils % 1.1 %; Hematocrit 39.3 % (37.0-47.0); Hemoglobin 12.3 g/dL (11.5-15.3); Lymphocytes # 1.9 10^3/uL (0.8-4.8); Lymphocytes % 20.7 %; Mean Corpuscular HGB Conc 31.3 g/dL (30.0-36.0); Mean Corpuscular Hemoglobin 28.9 pg (28.0-34.0); Mean Corpuscular Volume 92.3 fl (81-99); Mean Platelet Volume 9.5 fL (7.4-10.4); Monocytes # 0.7 10^3/uL (0.2-0.9); Monocytes % 7.6 %; Neutrophils # 6.21 10^3/uL (1.8-7.7); Neutrophils % 67.8 %; Nucleated Red Blood Cells % 0 %; Platelet Count 295 10^3/cmm (130-400); Red Blood Count 4.26 10^6/uL (4.1-5.3); Red Cell Distribution Width 13.9 % (12.1-15.1); White Blood Count 9.2 10^3/uL (4.0-10.0)
[2021-12-22 18:16] LABS: Add Urine Microscopic? NO; Charge for UA Resulting for Rev
[2021-12-22] MEDS: ipratropium-albuterol 3 mL Neb INHALATION (18:17)
[2021-12-22 18:21] LABS: Specific Gravity, Urine 1.005 (1.005-1.030); Urine Appearance Clear (CLEAR); Urine Color Yellow (Yellow); pH Urine 7 (5-7)
[2021-12-22 18:22] VITALS: PULSE 88; RESP 19; O2SAT 98
[2021-12-22 18:22] LABS: Bilirubin Urine Neg (Negative); Blood Urine Neg (Negative); Glucose Urine UA Norm (Normal); Ketones Urine Negative (Negative); Leukocyte Esterase Urine Negative (Negative); Nitrate Urine Negative (Negative); Protein Urine Neg (Negative); Urobilinogen Urine Norm (Negative)
[2021-12-22 18:32] VITALS: BP 121/73
[2021-12-22 18:36] LABS: SARS Covid-2 Antigen Positive (Negative)
[2021-12-22 18:38] LABS: Alanine Aminotransferase 61 U/L (0-33); Albumin Level 4.4 g/dL (3.5-5.2); Alkaline Phosphatase 107 U/L (35-105); Anion Gap 15.7 (5-19); Aspartate Amino Transferase 18 U/L (0-32); Blood Urea Nitrogen 17 mg/dL (6-20); Calcium 9.6 mg/dL (8.5-10.5); Carbon Dioxide 26 mmol/L (22-29); Chloride 97 mmol/L (98-107); Globulin 3.1 g/dL (1.3-4.6); Glomerular Filtration Rate 67.4 mL/min (90-130); Glucose 100 mg/dL (65-115); Osmolality Calculated 282 mOsm/kg (285-295); Potassium 3.7 mmol/L (3.5-5.1); Sodium 135 mmol/L (136-145); Total Bilirubin 0.4 mg/dL (0.15-1.2); Total Protein 7.5 g/dL (6.6-8.7)
[2021-12-22 18:48] VITALS: BP 123/65; PULSE 72; RESP 14; O2SAT 97
[2021-12-22 19:13] VITALS: RESP 20; O2SAT 97
== END 2021-12-22 19:15 | disposition home or self-care (01) ==
PROVIDERS: Emergency Provider Student in an Organized Health Care Education/Training Program; PCP Family Medicine
DX: U07.1 COVID-19 (principal)
CPT/HCPCS: 71046; 80053; 81003; 83735; 85025; 86140; 87426; 93005; 94640; 96361; 96374; 99285; J1885; J7030

== ENCOUNTER 2022-01-17 08:07 | Outpatient (CLI) | payer MEDICAID, SELFPAY ==
--- NOTE | 2022-01-17 08:45 | MR_ITS ---
WS: [id number] MRI HEAD WITH CONTRAST TECHNIQUE: Sagittal T1, T2 axial, T2 axial FLAIR, axial susceptibility weighted imaging, axial diffus ion weighted images, and coronal T2 images were obtained. Pre and post-T1 axial and post T1 coronal i mages. ADC and FSPGR images. CLINICAL INFORMATION: Multiple meningioma COMPARISON: MRI [address] FINDINGS: Enhancing LEFT lateral frontal meningioma 2.7 x 1.9 x 2.5 AP by transverse by craniocaudal. Mild underlying mass effect with dural enhancement. No underlying edema in the LEFT frontal lobe. Ad ditional calcified enhancing LEFT parietal meningioma measuring 10 mm better seen on the prior CT. No significant underlying edema or mass effect. No evidence of restricted diffusion to suggest acute ischemia. Ventricular system and basal cisterns are patent. No other suspicious enhancing intracranial abnormalities. Normal posterior fossa. Normal vascular flow voids skull base. No extra-axial fluid collections. Mild mucosal thickening in the para nasal sinuses. Mastoid air cells well aerated. No hemosiderin on susceptibly weighted images. Normal optic chiasm and pituitary infundibulum. Cavernous sinuses and Meckel's cave. Normal posterior nasopharynx. MR/MR head wo/w con [id number] IMPRESSION: 1. Enhancing LEFT frontal meningioma slightly increased in size since February 20, 2021 today measuring 2.7 x 1.9 x 2.5 CM. This is significantly increased i n size since 2013 2. Underlying mass effect on the LEFT frontal lobe laterally. No underlying ed jaime. 3. Additional suspected densely calcified meningioma overlying the LEFT pariet al convexity measuring 9 mm unchanged since the prior CT February 20, 2021. 4. No other suspicious findings.
[2022-01-17] MEDS: gadobenate dimeglumine 20 mL vial IV (09:30)
== END 2022-01-17 08:08 | disposition home or self-care (01) ==
LOC: RAD 08:07
PROVIDERS: PCP Family Medicine; Visit Provider Family Medicine
DX: D32.9 Benign neoplasm of meninges, unspecified (principal); N64.52 Nipple discharge; N64.4 Mastodynia
CPT/HCPCS: 70553; 84146

== ENCOUNTER 2022-01-31 10:26 | Outpatient (CLI) | payer MEDICAID, SELFPAY ==
--- NOTE | 2022-01-31 10:36 | MM_ITS ---
WS: [id number] DIAGNOSTIC BILATERAL DIGITAL BREAST TOMOSYNTHESIS MAMMOGRAPHY WITH CAD LEFT breast ultrasound, limited HISTORY: N64.52 - Nipple discharge, left-sided discharge. COMPARISON: 11/11/2017 and 10/19/2017 TECHNIQUE: Bilateral craniocaudad, mediolateral oblique, and mediolateral views are submitted with to mosynthesis and SM. Spot compression LEFT CC. Computer aided detection utilized. Breast composition: The breasts are heterogeneously dense, which may obscure small masses. Mild asymm etry in the upper outer quadrant of the RIGHT breast is similar to the study from 2018. No suspicious masses or distortion. No nipple retraction or calcifications. LEFT breast ultrasound, limited. Ultrasound is directed to the LEFT breast around the nipple. There are no significantly dilated duct s. No increased vascularity. No nipple retraction. No duct ectasia or papilloma. MM/[place] [id number] IMPRESSION: BI-RADS: 2-Benign FOLLOW UP: 1 Year Follow-up
== END 2022-01-31 10:27 | disposition home or self-care (01) ==
PROVIDERS: PCP Family Medicine; Visit Provider Obstetrics & Gynecology
DX: N64.52 Nipple discharge (principal)
CPT/HCPCS: 76642; 77062

== ENCOUNTER 2022-04-29 13:46 | Emergency (ER) | payer MEDICAID, SELFPAY ==
[2022-04-29 13:49] VITALS: BP 120/82; PULSE 88; RESP 20; TEMP 36.7; O2SAT 98; BMI 33.6
--- NOTE | 2022-04-29 14:02 | W.ED.HEATRA ---
HPI - Head Injury General: Chief complaint: Head Injury Stated complaint: postbrain surgery,nosebleed Time Seen by Provider: 04/29/22 14:01 Source: patient Mode of arrival: ambulatory History of Present Illness: 47-year-old female recently had resection of meningioma 2 weeks ago. Presents emergency room with complaints of epistaxis in the left eye visual disturbance with what she describes as floaters. She is not on any anticoagulants. Associated symptoms: Deny nausea or vomiting Review of Systems Const: Denies: fever(s), chills, body aches, change in appetite, fatigue or malaise ENMT: Denies: throat pain, ear or mastoid pain, nasal discharge or nasal congestion Card: Denies: chest pain, edema, dyspnea on exertion or orthopnea Resp: Denies: dyspnea, productive cough or non-productive cough GI: Denies: abdominal pain, nausea, vomiting, hematemesis, coffee ground emesis, diarrhea, constipation, bloating, hematochezia or melena : Denies: flank pain, difficulty voiding, dysuria, urinary frequency or urinary urgency Skin/Breast: Denies: rash or pruritus PFSH ED PFSH: Medical History Heavy menses Pelvic pain in female Family History Father Diabetes Hypertension Hyperlipidemia Grandmother Breast cancer maternal, 60's Family/Other Ovarian cancer maternal cousin, 30's Denies family history of Colon cancer Clotting disorder Heart disease Anesthesia complication Bleeding disorder Uterine cancer Thyroid condition Stroke Social History Smoking and tobacco status: never smoked Alcohol intake: current Alcohol intake frequency: holidays/special occasions only Female Reproductive History: Date of last menstrual period: 01/15/20 Spontaneous abortions: No Physical Exam Const: GENERAL APPEARANCE: cooperative and comfortable ORIENTATION/CONSCIOUSNESS: Yes awake, Yes oriented to person, Yes oriented to place and Yes oriented to time HENMT: COMMON NORMALS: normocephalic, atraumatic and hearing grossly normal bilaterally HEAD & SCALP: normocephalic and atraumatic OTHER: Anterior septum mildly excoriated and raw but no active bleeding Eye: COMMON NORMALS: Equal, round and reactive pupils present, EOMs intact bilaterally, conjunctivae normal and no scleral icterus CONJUNCTIVA: Yes conjunctivae normal PUPIL: Yes Equal, round and reactive pupils present Resp: COMMON NORMALS: normal respiratory effort, No retractions, No use of accessory muscles and clear to auscultation bilaterally AUSCULTATION: clear to auscultation bilaterally Cardio: COMMON NORMALS: regular rate, regular rhythm and No murmurs present (Cardio) RATE: regular rate RHYTHM: regular rhythm GI: COMMON NORMALS: Soft to palpation and No hepatosplenomegaly present AUSCULTATION: Yes normoactive bowel sounds PALPATION: Yes Soft to palpation, No Tenderness to palpation present (GI), No Guarding due to palpation present (GI) and Yes No hepatosplenomegaly present Extremity: COMMON NORMALS: normal to inspection, capillary refill normal, no clubbing, cyanosis or edema, no calf tenderness and no pedal edema Neuro: SENSORIUM/ORIENTATION: Yes oriented to person, Yes oriented to place and Yes oriented to time Skin: COMMON NORMALS: no rashes or lesions noted GENERAL SKIN EXAM: no rashes or lesions noted Course Vital Signs: Vital signs: Vital Signs Temperature 98.1 F 04/29/22 13:49 Pulse Rate 88 04/29/22 13:49 Respiratory Rate 20 H 04/29/22 13:49 Blood Pressure 120/82 04/29/22 13:49 Pulse Oximetry 98 04/29/22 13:49 Oxygen Delivery Me thod 04/29/22 13:49 MDM - Head Injury Medcial Decision Making Is a moderate amount of swelling over the zygomatic arch looks like more it is subtle does not really any ecchymosis. The incision itself is clean dry and well-healed. No sign of infection. No visual field deficits at this time. We did try to contact her neurosurgeon however they left a message and they were not able to call back patient exam is normal at this time will discharge home follow-up with neurosurgery as planned. Sheeba epistaxes she did have a little bit of irritation to the anterior septum have her use topical mupirocin for that. Medical Records I reviewed the patient's medical records. Lab Data I reviewed the patient's lab results. Discharge Plan Discharge Patient Disposition: Home Clinical Impression: Epistaxis, recurrent, Meningioma, Status post craniotomy Condition: Stable Prescriptions: New mupirocin 2 % ointment 1 applic topical BID Qty: 15 0RF No Action hydrocodone-acetaminophen 10-325 mg tablet 1 tab PO Q6H PRN (Reason: pain) 5 Days Qty: 20 0RF promethazine 25 mg tablet 25 mg PO TID PRN (Reason: nausea and vomiting) Qty: 14 0RF tizanidine 4 mg Tablet 4 mg PO Q6H PRN (Reason: Muscle Spasm) qrxumomlpu-yfelynwanufkf-edia 50-325-40 mg tablet 1 tab PO Q6H PRN (Reason: Migraine Headache) Discharge Orders: Discharge ED (Routine); Ordered 04/29/22 Ordered By: Chandan Laird Referrals: Pancho Vital DO [Primary Care Provider] - Discharge Diet: Usual diet Discharge Activity: Increase activity as tolerated Patient Instructions: Opioid Safety, Pain Management Activity Restrictions/Additional Instructions: You are seen today for epistaxis recommend use the antibiotic ointment prescribed swab inside the nares twice daily. Follow-up with the neurosurgeon as scheduled. Coding Level of Care Code ED Human Resources Communications Manager for Cristino Valera
== END 2022-04-29 16:27 | disposition home or self-care (01) ==
PROVIDERS: Emergency Provider Family Medicine; PCP Family Medicine
DX: R04.0 Epistaxis (principal); D32.9 Benign neoplasm of meninges, unspecified; Z98.890 Other specified postprocedural states
CPT/HCPCS: 99283

== ENCOUNTER → 2022-06-02 11:19 | Outpatient (BNVA) | payer MEDICAID, SELFPAY | PROVIDERS: PCP Family Medicine; Visit Provider Family Medicine | DX: K92.0 Hematemesis (principal); K44.9 Diaphragmatic hernia without obstruction or gangrene; R11.0 Nausea; Z98.890 Other specified postprocedural states | CPT/HCPCS: 80053; 85025 ==

== ENCOUNTER 2022-09-03 12:32 | Outpatient (CLI) | payer MEDICAID, SELFPAY ==
[2022-09-03 13:01] LABS: Basophils % 0.5 %; Eosinophils # 0.2 10^3/uL (0.0-0.8); Eosinophils % 2.5 %; Hematocrit 34.6 % (37.0-47.0); Hemoglobin 11.3 g/dL (11.5-15.3); Lymphocytes # 2.6 10^3/uL (0.8-4.8); Lymphocytes % 32.9 %; Mean Corpuscular HGB Conc 32.7 g/dL (30.0-36.0); Mean Corpuscular Hemoglobin 28.3 pg (28.0-34.0); Mean Corpuscular Volume 86.5 fl (81-99); Mean Platelet Volume 9.5 fL (7.4-10.4); Monocytes # 0.5 10^3/uL (0.2-0.9); Monocytes % 6.1 %; Neutrophils # 4.46 10^3/uL (1.8-7.7); Neutrophils % 57.6 %; Nucleated Red Blood Cells % 0 %; Platelet Count 346 10^3/cmm (130-400); Red Cell Distribution Width 14.3 % (12.1-15.1); White Blood Count 7.7 10^3/uL (4.0-10.0)
[2022-09-03 13:27] LABS: Thyroid Stimulating Hormone 0.68 uIU/mL (0.27-4.20)
[2022-09-03 14:19] LABS: Free T4 Free Thyroxine 1.11 ng/dL (0.82-1.77)
== END 2022-09-03 12:33 | disposition home or self-care (01) ==
LOC: LAB 12:39
PROVIDERS: PCP Family Medicine; Visit Provider Specialist
DX: R49.0 Dysphonia (principal)
CPT/HCPCS: 36415; 84439; 84443; 85025

== ENCOUNTER 2022-10-03 11:24 | Outpatient (CLI) | payer MEDICAID, SELFPAY ==
--- NOTE | 2022-10-03 11:41 | MR_ITS ---
WS: [id number] MRI NECK WITH CONTRAST TECHNIQUE: Noncontrast axial T1, axial T2 FSE fat sat, coronal T2 fat sat, coronal T1, coronal T1 fat sat, sagittal T2 fat sat, plus contrast enhanced coronal, sagittal, and axial T1 fat sat images obta ined. CLINICAL INFORMATION: NEOPLASM OF UNCERTAIN BEHAVIOR OF PHARYNX COMPARISON: MRI July 18, 2022 FINDINGS: Mild mucosal thickening in the ethmoid air cells. Normal posterior fossa. Normal vascular flow voids at the skull base. Partial opacification RIGHT mastoid air cells. Trace mucosal thickening LEFT masto id tip. Normal posterior nasopharynx. Normal parapharyngeal fat. No evidence of supraglottic or glott ic mass. Tongue base appears normal. Normal vallecula and piriform sinuses. No evidence of supraglottic or gl ottic mass. Small T2 hyperintense LEFT thyroid nodule measuring 4.6 mm. Normal submandibular and paro tid glands bilaterally. Numerous cervical lymph nodes within normal limits. No lymphadenopathy. Promi nent elongated jugulodigastric lymph nodes within normal limits. Mild spondylitic changes. Mild disc bulging worse at C6-C7. Slight anterolisthesis C5 on C6. MR/MR orbit face neck wo/w* [id number] IMPRESSION: 1. No evidence of supraglottic or glottic mass. 2. A few prominent cervical lymph nodes although no cervical lymphadenopathy. 3. Partial opacification RIGHT mastoid air cells. 4. Tiny LEFT thyroid nodule measuring 4.6 mm. 5. Slight anterolisthesis C5 on C6 with mild disc bulging C6-C7 with slight in dentation on cervical cord and mild central canal stenosis.
== END 2022-10-03 11:25 | disposition home or self-care (01) ==
LOC: RAD 11:26
PROVIDERS: PCP Family Medicine; Visit Provider Specialist
DX: E04.1 Nontoxic single thyroid nodule (principal); M50.223 Other cervical disc displacement at C6-C7 level; M43.12 Spondylolisthesis, cervical region
CPT/HCPCS: 70543; A9577

== ENCOUNTER → 2022-11-03 11:09 | Outpatient (BNVA) | payer MEDICAID, SELFPAY | PROVIDERS: PCP Family Medicine; Visit Provider Family Medicine | DX: J04.0 Acute laryngitis (principal); M12.9 Arthropathy, unspecified; R22.0 Localized swelling, mass and lump, head; R53.83 Other fatigue; R74.8 Abnormal levels of other serum enzymes | CPT/HCPCS: 84439; 84443; 85025; 85651; 86038; 86140; 86200; 86431 ==

== ENCOUNTER 2023-01-25 07:43 | Emergency (ER) | payer MEDICAID, SELFPAY ==
[2023-01-25 07:49] VITALS: BP 141/78; PULSE 83; RESP 17; TEMP 36.9; O2SAT 99; BMI 33.6
[2023-01-25 07:55] VITALS: BP 145/105; PULSE 76; RESP 18; TEMP 36.9; O2SAT 100
--- NOTE | 2023-01-25 08:09 | ED_ITS ---
HPI - Abdominal Pain General: Chief Complaint: Abdominal Pain Stated Complaint: low abd pain Time Seen by Provider: 01/25/23 07:57 Source: patient Mode of arrival: ambulatory History of Present Illness: 48-year-old female presents emergency room complaining of abdominal pain for the last 2 months, eating makes it worse. She also has nausea she has had acholic stools. Localizes pain to the epigastric area radiating to the left upper quadrant. She started Tylenol ibuprofen and Benadryl for pain with minimal relief. She had 1 episode 2 months ago she had some bloody stool. She has not noticed any hematuria any dysuria urgency or frequency no coffee-ground emesis or hematemesis. She did states she had a colonoscopy about 1 year ago had some polyps but cannot tell me anything else about it or what the follow-up timeframe she was advised on. She has previously had a tubal ligation and appendectomy. MD elicited complaint: abdominal pain Onset (ago): month(s) (2) Pain Consistency: intermittent Location: Epigastric Severity: mild Quality: cramping Exacerbating factors: nothing Relieving factors: nothing Associated Symptoms: Reports bloating, change in stool character (Acholic), GI cramping, nausea, poor appetite and vomiting; Denies anorexia, belching, change in bowel habits, chills, coffee ground emesis, constipation, diarrhea, dyspepsia, dysuria, excessive flatus, fever(s), heartburn, hematochezia, hematuria, hematemesis, fecal incontinence, loose sto ols, melena, syncope and other Review of Systems Const: Denies: fever(s) or chills Card: Denies: chest pain or syncope Resp: Denies: dyspnea GI: Reports: abdominal pain, nausea, vomiting, bloating, GI cramping and change in stool character (Acholic); Denies: hematemesis, coffee ground emesis, heartburn, diarrhea, constipation, belching, excessive flatus, fecal incontinence, change in bowel habits, hematochezia, melena or other : Denies: flank pain, dysuria, urinary frequency, urinary urgency or aakash turia Musc: Denies: neck pain or back pain Skin/Breast: Denies: rash PFSH ED PFSH: Medical History Heavy menses Pelvic pain in female Family History Father Diabetes Hypertension Hyperlipidemia Grandmother Breast cancer maternal, 60's Family/Other Ovarian cancer maternal cousin, 30's Denies family history of Colon cancer Clotting disorder Heart disease Anesthesia complication Bleeding disorder Uterine cancer Thyroid disease Stroke Social History Smoking and tobacco/nicotine status: never used tobacco/nicotine Alcohol intake: current Alcohol intake frequency: holidays/special occasions only Substance/Drug Use: never Female Reproductive History: Spontaneous abortions: No Physical Exam Const: COMMON NORMALS: no acute distress GENERAL APPEARANCE: cooperative and comfortable ORIENTATION/CONSCIOUSNESS: Yes awake, Yes oriented to person, Yes oriented to place and Yes oriented to time HENMT: COMMON NORMALS: normocephalic, atraumatic and hearing grossly normal bilaterally HEAD & SCALP: normocephalic and atraumatic Resp: COMMON NORMALS: normal respiratory effort, No retractions, No use of accessory muscles and clear to auscultation bilaterally AUSCULTATION: clear to auscultation bilaterally Cardio: COMMON NORMALS: regular rate, regular rhythm and No murmurs present (Cardio) RATE: regular rate RHYTHM: regular rhythm GI: COMMON NORMALS: Soft to palpation and No hepatosplenomegaly present AUSCULTATION: Yes normoactive bowel sounds PALPATION: Yes Soft to palpation, No Tenderness to palpation present (GI), No Guarding due to palpation present (GI) and Yes No hepatosplenomegaly present Extremity: COMMON NORMALS: normal to inspection, capillary refill normal, no clubbing, cyanosis or edema, no calf tenderness and no pedal edema Neuro: SENSORIUM/ORIENTATION: Yes oriented to person, Yes oriented to place and Yes oriented to time Skin: COMMON NORMALS: no rashes or lesions noted GENERAL SKIN EXAM: no rashes or lesions noted Course Vital Signs: Vital signs: Vital Signs Temperature 98.7 F 01/25/23 10:06 Pulse Rate 94 01/25/23 10:06 Respiratory Rate 18 01/25/23 10:06 Blood Pressure 134/99 01/25/23 10:06 Pulse Oximetry 99 01/25/23 10:06 Oxygen Delivery Me thod Room Air 01/25/23 07:49 MDM - Abdominal Pain Medical Decision Making Laboratory test reviewed there is a slight elevation of her lipase. Pain is worse when she takes a deep breath her vital signs of been stable she not tachycardic is not hypoxic not think she has a PE. There is no evidence of infiltrate on her chest x-ray and her lung sounds are normal. She is having acholic stools and she states is worse when she eats has been going on for some time. I cannot elicit any particular tenderness in the left upper quadrant its more in the epigastric. Discharge her home with a clear liquid diet started on pantoprazole 40 daily still Carafate as needed advance diet as tolerated set up for an outpatient gallbladder ultrasound and referral to general surgery for EGD. Medical Records I reviewed the patient's medical records. Lab Data I reviewed the patient's lab results. 01/25/23 08:12 01/25/23 08:12 Labs/Radiology: Radiology Impressions Abdomen/Pelvis CT 01/25/23 08:45 IMPRESSION: No acute findings. Chest X-Ray 01/25/23 09:23 IMPRESSION: No acute cardiopulmonary abnormality. Laboratory Results WBC 4.74 10^3/uL (3.29-11.43) 01/25/23 08:12 RBC 3.86 10^6/uL (3.85-5.65) 01/25/23 08:12 Hgb 11.30 g/dL (11.27-16.99) 01/25/23 08:12 Hct 35.9 % (36-47) L 01/25/23 08:12 MCV 93.0 fl (85-98) 01/25/23 08:12 MCH 29.3 pg (27-33) 01/25/23 08:12 MCHC 31.5 g/dL (30-55) 01/25/23 08:12 RDW 13.6 % (12.1-15.1) 01/25/23 08:12 Plt Count 265 10^3/cmm (157-399) 01/25/23 08:12 MPV 9.5 fL (7.4-10.4) 01/25/23 08:12 Neut % (Auto) 55.5 % 01/25/23 08:12 Lymph % (Auto) 37.1 % 01/25/23 08:12 [place] % (Auto) 4.9 % 01/25/23 08:12 Eos % (Auto) 1.7 % 01/25/23 08:12 Baso % (Auto) 0.4 % 01/25/23 08:12 Neut # (Auto) 2.63 10^3/uL (1.8-7.7) 01/25/23 08:12 Lymph # (Auto) 1.8 10^3/uL (0.8-4.8) 01/25/23 08:12 [place] # (Auto) 0.2 10^3/uL (0.2-0.9) 01/25/23 08:12 Eos # (Auto) 0.1 10^3/uL (0.0-0.8) 01/25/23 08:12 Baso # (Auto) 0.0 10^3/uL (0.0-0.1) 01/25/23 08:12 Nucleated RBC % (auto) 0 % 01/25/23 08:12 Nucleated RBCs # 0.0 /100WBC 01/25/23 08:12 Sodium 138 mmol/L (136-145) 01/25/23 08:12 Potassium 4.2 mmol/L (3.5-5.1) 01/25/23 08:12 Chloride 104 mmol/L (98-107) 01/25/23 08:12 Carbon Dioxide 23 mmol/L (22-29) 01/25/23 08:12 Anion Gap 15.2 (5-19) 01/25/23 08:12 BUN 9 mg/dL (6-20) 01/25/23 08:12 Creatinine 0.9 mg/dL (0.5-0.9) 01/25/23 08:12 GFR Calculation 66.8 mL/min (90-130) L 01/25/23 08:12 Glucose 131 mg/dL (65-115) H 01/25/23 08:12 Calculated Osmolality 286 mOsm/kg (285-295) 01/25/23 08:12 Calcium 9.9 mg/dL (8.5-10.5) 01/25/23 08:12 Total Bilirubin 0.3 mg/dL (0.15-1.2) 01/25/23 08:12 AST 15 U/L (0-32) 01/25/23 08:12 ALT 24 U/L (0-33) 01/25/23 08:12 Alkaline Phosphatase 96 U/L (35-105) 01/25/23 08:12 Total Protein 7.2 g/dL (6.6-8.7) 01/25/23 08:12 Albumin 4.3 g/dL (3.5-5.2) 01/25/23 08:12 Globulin 2.9 g/dL (1.3-4.6) 01/25/23 08:12 Triglycerides 191 mg/dL (0-150) H 01/25/23 08:12 Lipase 79 U/L (13-60) H 01/25/23 08:12 Urine Color Yellow (Yellow) 01/25/23 08:53 Urine Appearance Cloudy (CLEAR) A 01/25/23 08:53 Urine pH 5 (5-7) 01/25/23 08:53 Ur Specific [place] 1.025 (1.005-1.030) 01/25/23 08:53 Urine Protein Neg (Negative) 01/25/23 08:53 Urine Glucose (UA) Norm (Normal) 01/25/23 08:53 Urine Ketones 1+ (Negative) H 01/25/23 08:53 Urine Blood 2+ (Negative) H 01/25/23 08:53 Urine Nitrate Negative (Negative) 01/25/23 08:53 Urine Bilirubin Neg (Negative) 01/25/23 08:53 Urine Urobilinogen Neg mg/dL (Negative) 01/25/23 08:53 Ur Leukocyte Esterase Trace (Negative) H 01/25/23 08:53 Urine RBC 0-4 /hpf (0-2) H 01/25/23 08:53 Urine WBC 0-4 /hpf (0-5) H 01/25/23 08:53 Ur Squamous Epith Cells 15-25 /hpf (0-5) H 01/25/23 08:53 Amorphous Sediment Not Reportable 01/25/23 08:53 Urine Bacteria 3+ /hpf (NONE) H 01/25/23 08:53 Urine Mucus Trace /hpf 01/25/23 08:53 All radiology interpretation(s) finalized by discharge Discharge Plan Discharge Patient Disposition: Home Clinical Impression: Abdominal pain, Dyspepsia Condition: Stable Prescriptions: New pantoprazole 40 mg tablet,delayed release (DR/EC) 40 mg PO DAILY Qty: 60 0RF Rx Instructions: Twice daily for 2 weeks then once daily. Carafate 1 gram tablet 1 g PO Q6H PRN (Reason: dyspepsia) 28 Days Qty: 112 0RF No Action ondansetron 4 mg tablet,disintegrating See Rx Instructions .ROUTE .COMPLEX Rx Instructions: 4 mg orally on the tongue every 8 hours as needed for nausea and vomiting. Discharge Orders: Discharge ED (Routine); Ordered 01/25/23 Ordered By: Chandan Laird Discharge Diet: Usual diet Discharge Activity: Increase activity as tolerated Patient Instructions: Abdominal Pain (ED), Opioid Safety, Pain Management Activity Restrictions/Additional Instructions: You were seen today for abdominal pain that has been going on for some time. Your white count and liver enzymes were normal. We will set you up for an outpatient ultrasound your gallbladder and referral to general surgery for possible EGD. Your hemoglobin is stable at this time. Follow-up with your primary care doctor. Coding Level of Care Code ED Feeder Operator Automatic for Cristino Valera
[2023-01-25 08:13] VITALS: RESP 18
[2023-01-25] MEDS: ondansetron 2 mg/ML SDV 2 mL 4 MG IVP (08:13)
[2023-01-25] MEDS: morphine 4 mg/mL SDV 1 mL IVP (08:13)
[2023-01-25] MEDS: sodium chloride 0.9% 1,000 ML 999 ML IV (08:13)
[2023-01-25 08:28] LABS: Basophils % 0.4 %; Eosinophils # 0.1 10^3/uL (0.0-0.8); Eosinophils % 1.7 %; Hematocrit 35.9 % (36-47); Lymphocytes # 1.8 10^3/uL (0.8-4.8); Lymphocytes % 37.1 %; Mean Corpuscular HGB Conc 31.5 g/dL (30-55); Mean Corpuscular Hemoglobin 29.3 pg (27-33); Mean Platelet Volume 9.5 fL (7.4-10.4); Monocytes # 0.2 10^3/uL (0.2-0.9); Monocytes % 4.9 %; Neutrophils # 2.63 10^3/uL (1.8-7.7); Neutrophils % 55.5 %; Nucleated Red Blood Cells % 0 %; Platelet Count 265 10^3/cmm (157-399); Red Blood Count 3.86 10^6/uL (3.85-5.65); Red Cell Distribution Width 13.6 % (12.1-15.1); White Blood Count 4.74 10^3/uL (3.29-11.43)
[2023-01-25 08:37] LABS: Alanine Aminotransferase 24 U/L (0-33); Albumin Level 4.3 g/dL (3.5-5.2); Alkaline Phosphatase 96 U/L (35-105); Anion Gap 15.2 (5-19); Aspartate Amino Transferase 15 U/L (0-32); Blood Urea Nitrogen 9 mg/dL (6-20); Calcium 9.9 mg/dL (8.5-10.5); Carbon Dioxide 23 mmol/L (22-29); Chloride 104 mmol/L (98-107); Globulin 2.9 g/dL (1.3-4.6); Glomerular Filtration Rate 66.8 mL/min (90-130); Glucose 131 mg/dL (65-115); Lipase 79 U/L (13-60); Osmolality Calculated 286 mOsm/kg (285-295); Potassium 4.2 mmol/L (3.5-5.1); Sodium 138 mmol/L (136-145); Total Bilirubin 0.3 mg/dL (0.15-1.2); Total Protein 7.2 g/dL (6.6-8.7)
--- NOTE | 2023-01-25 08:45 | CTR_ITS ---
PROCEDURE INFORMATION: Exam: CT Abdomen And Pelvis Without Contrast Exam date and time: 01/25/2023 8:56 AM Age: 48 years old Clinical indication: Abdominal pain; Localized; Left upper quadrant (luq); Prior surgery; Surgery date: 6+ months; Surgery type: Appy, tubal TECHNIQUE: Imaging protocol: Computed tomography of the abdomen and pelvis without contrast. Radiation optimization: All CT scans at this facility use at least one of these dose optimization techniques: automated exposure control; mA and/or kV adjustment per patient size (includes targeted exams where dose is matched to clinical indication); or iterative reconstruction. REPORTING DATA: Count of CT and Cardiac NM exams in prior 12 months: This patient has received 0 known CTs and 0 known cardiac nuclear medicine studies in the 12 months prior to the current study. COMPARISON: CT abdomen pelvis w con* [id number] 02/20/2021 1:16 PM RADIATION DOSE METRICS: Total DLP (mGy-cm): 930.91 FINDINGS: Liver: Normal. No mass. Gallbladder and bile ducts: Normal. No calcified stones. No ductal dilation. Pancreas: Normal. No ductal dilation. Spleen: Normal. No splenomegaly. Adrenal glands: Normal. No mass. Kidneys and ureters: Normal. No hydronephrosis. Stomach and bowel: Unremarkable. No obstruction. No mucosal thickening. Appendix: Appendectomy. Intraperitoneal space: Unremarkable. No free air. No significant fluid collection. Vasculature: Unremarkable. No abdominal aortic aneurysm. Lymph nodes: Unremarkable. No enlarged lymph nodes. Urinary bladder: Unremarkable as visualized. Reproductive: Unremarkable as visualized. Bones/joints: Unremarkable. No acute fracture. Soft tissues: Tiny fat containing umbilical hernia. CT/CT abdomen pelvis wo con [id number] IMPRESSION: No acute findings.
[2023-01-25 09:03] LABS: Triglycerides 191 mg/dL (0-150)
[2023-01-25 09:18] LABS: Add Urine Microscopic? YES; Bilirubin Urine Neg (Negative); Blood Urine 2+ (Negative); Glucose Urine UA Norm (Normal); Ketones Urine 1+ (Negative); Leukocyte Esterase Urine Trace (Negative); Nitrate Urine Negative (Negative); Protein Urine Neg (Negative); Specific Gravity, Urine 1.025 (1.005-1.030); Urine Appearance Cloudy (CLEAR); Urine Color Yellow (Yellow); Urobilinogen Urine Neg (Negative); pH Urine 5 (5-7)
[2023-01-25 09:19] LABS: Add Urine Culture? No; Bacteria Urine 3+ /hpf; Mucus Urine TRACE /hpf; RBC Urine 0-4 /hpf (0-2); Squamous Epithelial Cell Urine 15-25 /hpf (0-5); WBC Urine 0-4 /hpf (0-5)
--- NOTE | 2023-01-25 09:23 | XRR_ITS ---
PROCEDURE INFORMATION: Exam: XR Chest Exam date and time: 01/25/2023 9:44 AM Age: 48 years old Clinical indication: Dyspnea; Additional info: Dyspnea/cough TECHNIQUE: Imaging protocol: Radiologic exam of the chest. Views: 1 view. COMPARISON: CR XR chest 2V* [id number] 12/22/2021 5:35 PM FINDINGS: Lungs: Unremarkable. No consolidation. Pleural spaces: Unremarkable. No pleural effusion. No pneumothorax. Heart/Mediastinum: Cardiac silhouette may be accentuated by portable AP technique. Bones/joints: Unremarkable. XR/XR chest 1V portable [id number] IMPRESSION: No acute cardiopulmonary abnormality.
[2023-01-25] MEDS: lidocaine 2% viscous 15 ML, aluminum-mag hydrox-simethicon 30 ML, sucralfate oral liq 1 GM PO (09:30)
[2023-01-25 10:06] VITALS: BP 134/99; PULSE 94; RESP 18; TEMP 37.1; O2SAT 99
--- NOTE | 2023-01-28 10:02 | PC.SOCIAL ---
Referral Referral to general surgery at this time. Clinic to contact patient with appt/date time. Orders for o/p gallbladder u/s faxed at this time.
== END 2023-01-25 10:11 | disposition home or self-care (01) ==
PROVIDERS: Emergency Provider Family Medicine
DX: R10.30 Lower abdominal pain, unspecified (principal); R10.13 Epigastric pain
CPT/HCPCS: 71045; 74176; 80053; 81001; 83690; 84478; 85025; 96361; 96374; 96375; 99285; J2270; J2405; J7030

== ENCOUNTER → 2023-02-02 08:05 | Outpatient (BNVA) | payer MEDICAID, SELFPAY | PROVIDERS: Visit Provider Obstetrics & Gynecology | DX: R32 Unspecified urinary incontinence (principal); Z12.4 Encounter for screening for malignant neoplasm of cervix; R10.2 Pelvic and perineal pain; N93.9 Abnormal uterine and vaginal bleeding, unspecified; N73.9 Female pelvic inflammatory disease, unspecified | CPT/HCPCS: 83001; 84146; 84315; 84443; 85025; 87624 ==

== ENCOUNTER → 2023-02-09 08:46 | Outpatient (BNVA) | payer MEDICAID, SELFPAY | PROVIDERS: Visit Provider Obstetrics & Gynecology | DX: R10.11 Right upper quadrant pain (principal) | CPT/HCPCS: 76830 ==

== ENCOUNTER 2023-02-10 05:58 | Outpatient (CLI) | payer MEDICAID, SELFPAY ==
--- NOTE | 2023-02-10 | US_ITS ---
WS: [id number] RIGHT UPPER QUADRANT ULTRASOUND HISTORY: RUQ PAIN COMPARISON: 07/14/2011 Liver: 15.8 cm in length. Normal size liver and echogenicity. No bile duct dilatation or mass. Portal Vein: Normal hepatopetal flow with monophasic waveform. Gallbladder: Normally distended gallbladder with no stones or wall thickening. CBD: 0.4 cm Pancreas: Normal size and echogenicity. Right kidney: 10.3 cm in length. Normal size and echogenicity. No hydronephrosis or mass. Aorta and IVC: Unremarkable abdominal aorta and IVC. No ascites. IMPRESSION: Normal RIGHT upper quadrant ultrasound.
== END 2023-02-10 05:59 | disposition home or self-care (01) ==
LOC: RAD 05:59
PROVIDERS: Visit Provider Family Medicine
DX: R10.11 Right upper quadrant pain (principal)
CPT/HCPCS: 76705

== ENCOUNTER → 2023-02-25 13:58 | Outpatient (BNVA) | payer MEDICAID, SELFPAY | PROVIDERS: Referring Provider Family Medicine; Visit Provider Surgery | DX: K92.1 Melena (principal); K92.0 Hematemesis; R10.9 Unspecified abdominal pain | CPT/HCPCS: 99204; 99214 ==

== ENCOUNTER 2023-06-16 10:02 | Observation (INO) | payer MEDICAID, SELFPAY ==
--- NOTE | 2023-06-15 10:17 | P.ANESASSM_ITS ---
Pre-Anesthetic Assessment Height/Weight: Height 1.6 m Operation Date: 06/16/23 07:00 Proposed Procedures p Total vaginal hysterectomy 55135 D25.9,R10.2, G89.29(Not Applicable) - David Goldsmith MD s Anterior colporrhaphy 23332(Not Applicable) - David Goldsmith MD s Single incision sling 27659(Not Applicable) - David Goldsmith MD Familial anesthetic complications: Grandmother had malignant hyperthermia Social No alcohol and No tobacco Exam alert, oriented x 3, clear to auscultation bilaterally and regular rate & rhythm Airway Mallampati: Class II Dentition: full Pulmonary Seen by pulmonologists for SOB but no issues found, told she doesn't have copd CV/HEM Myocardial Infarction (mild on her 40th birthday, no stents placed, no further issues since) > 4 METS without cardiac symptoms Neuropsych meningioma s/p resection, but it has recurred, surgery not an option. They are just monitoring, chronic headaches. Anesthetic Plan ASA status: 2 Anesthesia: General Risk of > 500 ml blood loss (7ml/kg in children): No Medications/Allergies Home Medications Medication Instructions Recorded Confirmed Last Taken Type ondansetron 4 mg disintegrating 4 mg PO Q8H 01/25/23 06/15/23 01/25/23 History tablet pantoprazole 40 mg tablet,delayed 40 mg PO BID 6 weeks #84 tabs 02/25/23 06/15/23 Unknown Rx release (Protonix) hydrocodone 5 mg-acetaminophen 325 5 - 325 tab PO Q6H 06/15/23 06/15/23 06/15/23 History mg tablet Allergies Allergy/AdvReac Type Severity Reaction Status Date / Time tramadol Allergy ADR-Seizure Verified 06/15/23 09:50 [facility] Anesthesia Medical History Abnormal uterine bleeding Heavy menses Pelvic pain in female Family History Father Diabetes Hypertension Hyperlipidemia Grandmother Breast cancer maternal, 60's Family/Other Ovarian cancer maternal cousin, 30's Denies family history of Colon cancer Clotting disorder Heart disease Anesthesia complication Bleeding disorder Uterine cancer Thyroid disease Stroke Social History Smoking and tobacco/nicotine status: never used tobacco/nicotine Alcohol intake: current Alcohol intake frequency: holidays/special occasions only Substance/Drug Use: never Female Reproductive History Spontaneous abortions: No Data Anesthesia 06/15/23 10:05 06/15/23 10:04 Cardiac Studies: 2 No Data to Display
[2023-06-15 10:22] LABS: Basophils % 0.6 %; Eosinophils # 0.1 10^3/uL (0.0-0.8); Eosinophils % 2.3 %; Hematocrit 32.8 % (36-47); Lymphocytes # 1.6 10^3/uL (0.8-4.8); Lymphocytes % 34.2 %; Mean Corpuscular HGB Conc 31.7 g/dL (30-55); Mean Corpuscular Hemoglobin 28.7 pg (27-33); Mean Corpuscular Volume 90.6 fl (85-98); Mean Platelet Volume 9.7 fL (7.4-10.4); Monocytes # 0.3 10^3/uL (0.2-0.9); Monocytes % 5.2 %; Neutrophils # 2.74 10^3/uL (1.8-7.7); Neutrophils % 57.1 %; Nucleated Red Blood Cells % 0 %; Platelet Count 264 10^3/cmm (157-399); Red Blood Count 3.62 10^6/uL (3.85-5.65); Red Cell Distribution Width 13.6 % (12.1-15.1)
[2023-06-15 10:40] LABS: Alanine Aminotransferase 32 U/L (0-33); Albumin Level 4.1 g/dL (3.5-5.2); Alkaline Phosphatase 98 U/L (35-105); Anion Gap 15.9 (5-19); Aspartate Amino Transferase 19 U/L (0-32); Blood Urea Nitrogen 9 mg/dL (6-20); Calcium 9.1 mg/dL (8.5-10.5); Carbon Dioxide 23 mmol/L (22-29); Chloride 108 mmol/L (98-107); Globulin 2.9 g/dL (1.3-4.6); Glomerular Filtration Rate 76.6 mL/min (90-130); Glucose 98 mg/dL (65-115); Osmolality Calculated 293 mOsm/kg (285-295); Potassium 4.9 mmol/L (3.5-5.1); Sodium 142 mmol/L (136-145); Total Bilirubin 0.3 mg/dL (0.15-1.2)
[2023-06-15 11:17] LABS: Bilirubin Urine Neg (Negative); Blood Urine 3+ (Negative); Glucose Urine UA Norm (Normal); Ketones Urine 1+ (Negative); Nitrate Urine Negative (Negative); Protein Urine Neg (Negative); Specific Gravity, Urine 1.025 (1.005-1.030); Urine Appearance Hazy (CLEAR); Urine Color Yellow (Yellow); pH Urine 5 (5-7)
[2023-06-15 11:18] LABS: Add Urine Microscopic? YES; Leukocyte Esterase Urine Negative (Negative); Urobilinogen Urine Neg (Negative)
[2023-06-15 11:19] LABS: Bacteria Urine 2+ /hpf; Mucus Urine 2+ /hpf; RBC Urine 0-4 /hpf (0-2); Squamous Epithelial Cell Urine 40-55 /hpf (0-5); WBC Urine 0-4 /hpf (0-5)
[2023-06-15 11:20] LABS: Add Urine Culture? No
[2023-06-15 11:34] LABS: OR HCG Qualitative Urine Negative (Negative)
[2023-06-16] VITALS (25 sets, daily range): BP systolic 113–156; BP diastolic 75–111; PULSE 65–84; RESP 14–18; TEMP 36.6–36.8; O2SAT 94–99; BMI 32.2
[2023-06-16] MEDS: scopolamine 1.5 Patch 1 PATCH TRANSDERMA (06:15)
[2023-06-16] MEDS: sodium chloride 0.9% 500 ML IV (06:19)
[2023-06-16] MEDS: sodium chloride 0.9% 1,000 ML 30 ML IV (06:37)
--- NOTE | 2023-06-16 06:48 | P.ANESUD_ITS ---
Pre-Anesthetic Update Pre-Anesthetic Assessment: Date of Surgery/Procedure: 06/16/23 Preop Mariia gnosis: Abnormal uterine bleeding, pelvic pain, uterine fibroids Proposed Procedure: Operation Date: 06/16/23 07:00 Proposed Procedures p Total vaginal hysterectomy 42714 D25.9,R10.2, G89.29(Not Applicable) - David Goldsmith MD s Anterior colporrhaphy 98891(Not Applicable) - David Goldsmith MD s Single incision sling 96620(Not Applicable) - David Goldsmith MD Any changes to Pre-Anesthetic Assessment?: No Last Intake: Intake Last Liquid Date 06/15/23 Last Liquid Time 11:55 Last Solid Date 06/15/23 Last Solid Time 18:00 Labs Last 48hrs: Short CBC 06/15/23 Range/Units 10:05 WBC 4.80 (3.29-11.43) 10^ 3/uL Hgb 10.40 L (11.27-16.99) g/ dL Hct 32.8 L (36-47) % MCV 90.6 (85-98) fl Plt Count 264 (157-399) 10^3/c mm Neut % (Auto) 57.1 % Neut # (Auto) 2.74 (1.8-7.7) 10^3/u L BMP 06/15/23 10:04 Sodium 142 Potassium 4.9 Chloride 108 H Carbon Dioxide 23 BUN 9 Creatinine 0.8 Glucose 98 Calcium 9.1 Liver Function 06/15/23 Range/Units 10:04 Total Bilirubin 0.3 (0.15-1.2) mg/dL AST 19 (0-32) U/L ALT 32 (0-33) U/L Alkaline Phosphata se 98 (35-105) U/L Albumin 4.1 (3.5-5.2) g/dL Urine 06/15/23 Range/Units 09:44 Urine Color Yellow (Yellow) Urine Appearance Hazy A (CLEAR) Urine pH 5 (5-7) Ur Specific Gravit y 1.025 (1.005-1.030) Urine Protein Neg (Negative) Urine Glucose (UA) Norm (Normal) Urine Ketones 1+ H (Negative) Urine Nitrate Negative (Negative) Urine Bilirubin Neg (Negative) Ur Leukocyte Anny ase Negative (Negative) Urine RBC 0-4 H (0-2) /hpf Urine WBC 0-4 H (0-5) /hpf Blood Bank 06/15/23 10:05 Blood Type A Positive Rho(D) Type Rh positive Antibody Screen Negative Vitals: Temperature 97.9 F 06/16/23 06:06 Temperature Source Temporal Artery S can 06/16/23 06:06 Pulse Rate 73 06/16/23 06:06 Respiratory Rate 16 06/16/23 06:06 Blood Pressure 156/111 06/16/23 06:[address] n 126 06/16/23 06:06 Pulse Oximetry 98 06/16/23 06:06 Oxygen Delivery Me thod Room Air 06/16/23 06:06 Exam: Pre-Anes Outpt Exam: alert, oriented x 3, clear to auscultation bilaterally and regular rate & rhythm Cardiac Studies: No Data to Display
--- NOTE | 2023-06-16 07:06 | W.PM.OPSUD ---
Surgery/Procedure H&P Update DATE OF PROCEDURE: June 16, 2023 DATE H&P PERFORMED: 06/11/23 H&P UPDATE INFORMATION: I have reviewed H&P completed within last 30 days, I have examined patient prior to procedure and No changes to prior documentation PREOP DIAGNOSIS: Abnormal uterine bleeding, pelvic pain, uterine fibroids PLANNED PROCEDURE: Operation Date: 06/16/23 07:00 Proposed Procedures p Total vaginal hysterectomy 21748 D25.9,R10.2, G89.29(Not Applicable) - David Goldsmith MD s Anterior colporrhaphy 33175(Not Applicable) - David Goldsmith MD s Single incision sling 06285(Not Applicable) - David Goldsmith MD
[2023-06-16] MEDS: ceFOXitin 2,000 MG in sodium chloride 0.9% (plus) 50 ML 100 MG IV (07:09)
[2023-06-16] MEDS: lidocaine-epi 2% PF 1:200,000 20 mL SDV INJECTION (08:08)
--- NOTE | 2023-06-16 09:43 | P.OP_ITS ---
Operative Report Date of procedure: June 16, 2023 Pre-op diagnosis: Pelvic pain Abnormal uterine bleeding Cystocele stage II Stress urinary incontinence Post-op diagnosis: same Procedure done: Total vaginal hysterectomy Anterior colporrhaphy augmented with allograft Single incision mid urethral sling Cystoscopy Specimens removed/disposition: Uterus Surgeon: David Goldsmith MD Estimated blood loss (mL): 500 IV fluids (mL): 1,600 Urine output (mL): 500 Complications: Bleeding Procedure: After informed consent and risks, benefits, indications and alternatives reviewed with the patient was taken to the operating room. The patient was placed in dorsal lithotomy position prepped, and draped in the usual sterile fashion. The pre-procedure timeout verifying the correct patient, procedure, site and side, could not requirements was performed and acknowledge by the OR team. A Rollins catheter was placed. A Bookwalter vaginal retractor was placed into the vagina in usual manner visualize the cervix. Cervix was grasped with a single tooth tenaculum and circumferentially infiltrated with 2% lidocaine with epinephrine. Then cervix was circumferentially incised with bovie and the bladder was dissected off the pubovesical cervical fascia anteriorly with a sponge stick and Metzenbaum scissors. The anterior peritoneal reflection was i dentified and the anterior cul-de-sac was entered sharply with Metzenbaum scissors. The same procedure was performed posteriorly and a posterior colpotomy was made through the posterior cul-de-sac space without difficulty and the posterior blade of the Bookwalter vaginal retractor was advanced posteriorly into the cul-de-sac. At this time, the left and right uterosacral ligaments were isolated and ligated with 0 Vicryl. The LigaSure device was placed over the uterosacral ligaments on either side and was then used in a serial fashion up through the cardinal ligaments bilaterally cross-clamped, cut, and sealed with the LigaSure device. Finally, the uterine arteries were cross-clamped, cut, sealed and ligated with the LigaSure device. Hemostasis was assured. The broad ligaments were then serially clamped, sealed and cut with the LigaSure device on both sides. Excellent hemostasis was visualized. Both cornua were clamped, sealed and cut with the LigaSure device. Then the pedicles were then suture ligated with excellent hemostasis. The uterus was excised and submitted for pathologic evaluation. No other abnormalities were noted in the pelvic cavity. The peritoneum was then closed in a pursestring fashion with 0 Vicryl suture. The vaginal cuff angles were closed with [id number] #0 Vicryl suture on both sides and transfixed with the ipsilateral cardinal and uterosacral ligaments. The remainder of the vaginal cuff was closed with #0 Vicryl in a running locked fashion. The anterior vaginal mucosa beneath the midurethra was infiltrated with 2% lidocaine with epinephrine. A vertical midline incision was made beneath the midurethra, nearly 1.5 cm length. Careful submucosal dissection was performed bilaterally up to the interior portion of the inferior pubic ramus. The insertion of adductor longus tendon on the patient?s pubic ramus was identified as reference land shai. Palpated the notch along the internal edge of ischiopubic ramus where the adductor longus tendon and the inferior pubic ramus meet. The Altis single incision sling (SIS) was selected. Then the needle of the SIS inserted aiming at the location of this notch. One of the integrated self-fixating tips place onto the needle by sliding it over the end of the needle. The needle/sling assembly was inserted toward the location of identified reference notch making sure that the flat of the handle is perpendicular to the desired path. The needle was tracked along the posterior surface of the ischiopubic ramus until the midline shai on the mesh is approximately at the midline position under the urethra. The needle was removed and the same was repeated on the contralateral side until the appropriate sling tension under the urethra was achieved ensuring that the mesh lays flat. The needle was removed and vaginal incision was closed in a running interlocking fashion with 2-0 Vicryl. The vaginal mucosa was then injected in the midline with normal saline. The vaginal mucosa was scored in the midline with the Bovie approximately 1 cm medial to the urethral meatus to 1 cm distal to the vaginal cuff. This vaginal mucosa was then undermined and then incised in the midline with the Metzenbaum scissors. The lateral aspects of the vaginal mucosa were then grasped with the Allis clamps and the vaginal mucosa was then dissected off the underlying fascia with the Metzenbaum scissors. Again, there was noted to be quite a bit of oozing at the incision, which was controlled with cautery. After adequate dissection was performed, bilaterally. An Coloplast dermis allograft was modified at time of application to fit spacea, 3 x 3 cm piece . The allograft was placed in front of cystocele ready to be implanted facing the vagina mucosa. Suture is placed at distal end of graft and placed towards vaginal cuff. Final suture is placed on proximal portion of the graft to complete the placement overlying the bladder. Then Interrupted vertical mattress sutures of 0 Vicryl were used to elevate the cystocele superiorly. The excessive vaginal mucosa was then trimmed with the Metzenbaum scissors and the vaginal mucosa was then reapproximated in the running interlocking fashion with 2-0 Vicryl. At this time, instruments were removed from the vagina at hemostasis assured. Then the Rollins catheter was removed and cystoscope was inserted. The bladder was filled with sterile water. Complete evaluation of the bladder mucosa was performed noting no lacerations, dimpling, tears, bleeding of the mucosa or muscular layers. Both ureteral orifices were identified. Prompt excretion of urine from both ureteral orifices was noted. Cystoscope was withdrawn. Rollins catheter was then placed yielding clear refugio urine. A vaginal packing was placed and the patient was taken out of dorsal lithotomy position and awakened from the general anesthesia. The patient tolerated the procedure well and was taken to the PACU recovery room in a stable condition. Sponge, lap, needle and instruments counts were correct x3.
[2023-06-16] MEDS: fentaNYL 50 mcg/mL INJ 2mL IVP (09:51)
[2023-06-16] MEDS: HYDROmorphone 1 mg/mL INJ 1 mL 0.5 MG IVP ×4 (10:17→20:56)
--- NOTE | 2023-06-16 10:35 | ANE.PACU2 ---
Inpatient post-anesthesia follow up: Airway intact: Yes Vital signs: Temperature 97.8 F Pulse Rate 66 Respiratory Rate 17 Blood Pressure 118/83 Pulse Oximetry 98 Oxygen Delivery Me thod Room Air Oxygen Flow Rate 2 Fraction of Inspir ed Oxygen Hydration adequate: Yes Nausea and vomiting: No Pain level: 1 Mental status: Baseline
[2023-06-16] MEDS: ketorolac 30 mg/mL INJ IVP ×2 (11:23→16:49)
[2023-06-16] MEDS: ondansetron 2 mg/ML SDV 2 mL 4 MG IVP (11:24)
[2023-06-16] MEDS: HYDROcodone-acetaminophen 5-325 mg Tablet PO ×3 (11:24→21:53)
[2023-06-16] MEDS: lanolin oint 7 gm 1 APPLIC TOPICAL (11:28)
[2023-06-16] MEDS: dextrose 5%-lactated ringers 1,000 ML 125 ML IV ×2 (11:30→19:34)
[2023-06-16] MEDS: pantoprazole DR 40 mg Tablet PO (17:47)
[2023-06-16] MEDS: docusate sodium 100 mg Capsule PO (17:47)
[2023-06-16] MEDS: ondansetron 4 MG Tablet PO (19:33)
[2023-06-16] MEDS: simethicone 80 mg Chew PO (19:33)
[2023-06-17] MEDS: ketorolac 30 mg/mL INJ IVP ×2 (00:38→04:07)
[2023-06-17] MEDS: HYDROcodone-acetaminophen 5-325 mg Tablet PO ×2 (01:57→06:32)
[2023-06-17 04:07] VITALS: RESP 18
[2023-06-17] MEDS: HYDROmorphone 1 mg/mL INJ 1 mL 0.5 MG IVP (04:07)
[2023-06-17 05:00] VITALS: BP 142/89; PULSE 74; RESP 18; TEMP 37.2; O2SAT 97
--- NOTE | 2023-06-17 05:29 | PC.NURSE ---
Vaginal packing removed, patient tolerated the procedure well; will continue to monitor overall condition.
[2023-06-17 05:34] LABS: Hematocrit 26.1 % (36-47); Mean Corpuscular Hemoglobin 29.4 pg (27-33); Mean Corpuscular Volume 89.1 fl (85-98); Mean Platelet Volume 10.1 fL (7.4-10.4); Platelet Count 267 10^3/cmm (157-399); Red Blood Count 2.93 10^6/uL (3.85-5.65); Red Cell Distribution Width 13.9 % (12.1-15.1); White Blood Count 14.43 10^3/uL (3.29-11.43)
[2023-06-17] MEDS: simethicone 80 mg Chew PO (06:33)
--- NOTE | 2023-06-17 08:27 | PM.OBGYDC ---
Discharge Providers DINING ROOM CAPTAIN Date of Admission: 06/16/23 10:02 Date of Discharge: 06/17/23 Attending Provider at Admission: David Goldsmith MD Attending Provider at Discharge: David Goldsmith MD Primary DINING ROOM CAPTAIN: David Goldsmith MD Primary Care Provider: Kristina Tran DO Reason for Visit Reason for Visit: D25.9, R10.2, G89.29 Hospital Course Hospital Course Mrs. Garnett 48-year-old female with a history of abnormal uterine bleeding, pelvic pain, fibroid uterus, cystocele and stress incontinence admitted for planned total vaginal hysterectomy with anterior colporrhaphy augmented with allograft and single incision mid urethral sling. The procedures were performed without complications. Overnight observation was uneventful. Tolerating diet well. Ambulating without difficulty. PVR within normal limits. She was counseled regarding pelvic rest for 6 weeks (no sex, no tampons, no vaginal douches). Return to the emergency room if any fever, increased bleeding or pain. Physical Exam Narrative: GA: Alert and oriented ?3. HEENT: WNL. Heart: Regular rate and rhythm. Lungs: Clear to auscultation bilaterally. Abdomen: Bowel sounds present, nontender, minimal tenderness, incision clean and dry, no redness, pain or edema. QUALITY ASSURANCE ADVISOR: No bleeding. Extremities: No edema, no cyanosis, no calves pain. Urinary Catheter Management: Rollins: Cath Placed During This Visit: yes, but has since been removed by the nurse Reason for Continuing Indwelling Catheter: Decision to DC Catheter Urinary Catheter Date of Insertion: 06/16/23 Urinary Catheter Time of Insertion: 07:41 Date Urinary Catheter Removed: 06/17/23 Time Urinary Catheter Discontinued: 05:28 History History History 3 Term 3 0 Miscarriages/Ectopic 0 Living Children 3 Past Pregnancies Del. Date GA/Weeks Outcome Route Wt Inf Gender Labor Lgth Comp. Anesthesia Location Unknown live - full term Vaginal 37 hours Unknown live - full term Vaginal Unknown live - full term Vaginal Delivery Date: Last Updated by: Rhonda Estrada RN 1990- [facility] [place] Dr. [place] Delivery Date: Last Updated by: Rhonda Estrada RN 1991- [facility] [place] Dr. Buckley Delivery Date: Last Updated by: Rhonda Estrada RN 1994- [place], [place] Discharge Data Studies Completed and Pending Pending at discharge Category Date Time Status Pathology: Surgical [PTH] Routine Pth 06/16/23 09:47 Received Laboratory Results WBC 14.43 10^3/uL (3.29-11.43) H 06/17/23 05:25 RBC 2.93 10^6/uL (3.85-5.65) L 06/17/23 05:25 Hgb 8.60 g/dL (11.27-16.99) L 06/17/23 05:25 Hct 26.1 % (36-47) L 06/17/23 05:25 MCV 89.1 fl (85-98) 06/17/23 05:25 MCH 29.4 pg (27-33) 06/17/23 05:25 MCHC 33.0 g/dL (30-55) 06/17/23 05:25 RDW 13.9 % (12.1-15.1) 06/17/23 05:25 Plt Count 267 10^3/cmm (157-399) 06/17/23 05:25 MPV 10.1 fL (7.4-10.4) 06/17/23 05:25 Neut % (Auto) 57.1 % 06/15/23 10:05 Lymph % (Auto) 34.2 % 06/15/23 10:05 Iroquois % (Auto) 5.2 % 06/15/23 10:05 Eos % (Auto) 2.3 % 06/15/23 10:05 Baso % (Auto) 0.6 % 06/15/23 10:05 Neut # (Auto) 2.74 10^3/uL (1.8-7.7) 06/15/23 10:05 Lymph # (Auto) 1.6 10^3/uL (0.8-4.8) 06/15/23 10:05 Iroquois # (Auto) 0.3 10^3/uL (0.2-0.9) 06/15/23 10:05 Eos # (Auto) 0.1 10^3/uL (0.0-0.8) 06/15/23 10:05 Baso # (Auto) 0.0 10^3/uL (0.0-0.1) 06/15/23 10:05 Nucleated RBC % (auto) 0 % 06/15/23 10:05 Nucleated RBCs # 0.0 /100WBC 06/15/23 10:05 Sodium 142 mmol/L (136-145) 06/15/23 10:04 Potassium 4.9 mmol/L (3.5-5.1) 06/15/23 10:04 Chloride 108 mmol/L (98-107) H 06/15/23 10:04 Carbon Dioxide 23 mmol/L (22-29) 06/15/23 10:04 Anion Gap 15.9 (5-19) 06/15/23 10:04 BUN 9 mg/dL (6-20) 06/15/23 10:04 Creatinine 0.8 mg/dL (0.5-0.9) 06/15/23 10:04 GFR Calculation 76.6 mL/min (90-130) L 06/15/23 10:04 Glucose 98 mg/dL (65-115) 06/15/23 10:04 Calculated Osmolality 293 mOsm/kg (285-295) 06/15/23 10:04 Calcium 9.1 mg/dL (8.5-10.5) 06/15/23 10:04 Total Bilirubin 0.3 mg/dL (0.15-1.2) 06/15/23 10:04 AST 19 U/L (0-32) 06/15/23 10:04 ALT 32 U/L (0-33) 06/15/23 10:04 Alkaline Phosphatase 98 U/L (35-105) 06/15/23 10:04 Total Protein 7.0 g/dL (6.6-8.7) 06/15/23 10:04 Albumin 4.1 g/dL (3.5-5.2) 06/15/23 10:04 Globulin 2.9 g/dL (1.3-4.6) 06/15/23 10:04 Urine Color Yellow (Yellow) 06/15/23 09:44 Urine Appearance Hazy (CLEAR) A 06/15/23 09:44 Urine pH 5 (5-7) 06/15/23 09:44 Ur Specific Banner 1.025 (1.005-1.030) 06/15/23 09:44 Urine Protein Neg (Negative) 06/15/23 09:44 Urine Glucose (UA) Norm (Normal) 06/15/23 09:44 Urine Ketones 1+ (Negative) H 06/15/23 09:44 Urine Blood 3+ (Negative) H 06/15/23 09:44 Urine Nitrate Negative (Negative) 06/15/23 09:44 Urine Bilirubin Neg (Negative) 06/15/23 09:44 Urine Urobilinogen Neg mg/dL (Negative) 06/15/23 09:44 Ur Leukocyte Esterase Negative (Negative) 06/15/23 09:44 Urine RBC 0-4 /hpf (0-2) H 06/15/23 09:44 Urine WBC 0-4 /hpf (0-5) H 06/15/23 09:44 Ur Squamous Epith Cells 40-55 /hpf (0-5) H 06/15/23 09:44 Amorphous Sediment Not Reportable 06/15/23 09:44 Urine Bacteria 2+ /hpf (NONE) H 06/15/23 09:44 Urine Mucus 2+ /hpf 06/15/23 09:44 Urine HCG, Qual Negative (Negative) 06/15/23 09:44 Blood Type A Positive 06/15/23 10:05 Rho(D) Type Rh positive 06/15/23 10:05 Antibody Screen Negative 06/15/23 10:05 Vitals Last Vital Signs Temp 98.9 F 06/17/23 05:00 Pulse 74 06/17/23 05:00 Resp 18 06/17/23 05:00 BP 142/89 06/17/23 05:00 Pulse Ox 97 06/17/23 05:00 O2 Del Method Room Air 06/17/23 05:00 O2 Flow Rate 2 06/16/23 10:27 Results Labs OB ([facility]): Blood Type A Positive 06/15/23 Antibody Screen Negative 06/15/23 Hct 26.1 % (36-47) L 06/17/23 Hgb 8.60 g/dL (11.27-16.99) L 06/17/23 Rho(D) Type Rh positive 06/15/23 Plt Count 267 10^3/cmm (157-399) 06/17/23 Hep Bs Antigen Non-reactive (Nonreactive) 06/20/21 Hep B Core Total Ab Non-reactive (Nonreactive) 06/20/21 Hep Bs Antibody 838.1 (11.5-1000) 06/20/21 Hepatitis C Antibody Non-reactive (Nonreactive) 06/20/21 TSH 1.55 uIU/mL (0.27-4.20) 02/02/23 Free T4 0.95 ng/dL (0.82-1.77) 11/03/22 FSH 4.3 mIU/mL 02/02/23 HCG, Qual Negative (Negative) 02/09/20 Micro Urine Specimen 08/07/20 Pap Smear Interpret See note 02/02/23 Prolactin 24.78 ng/mL (4.8-23.3) H 02/02/23 Discharge Plan Discharge Patient Disposition: Home Condition: Stable Prescriptions: New hydrocodone-acetaminophen 5-325 mg tablet 1 tab PO Q4H PRN (Reason: pain) Qty: 60 0RF docusate sodium [Colace] 100 mg capsule 100 mg PO BID Qty: 60 0RF ferrous sulfate [Iron (ferrous sulfate)] 325 mg (65 mg iron) tablet 325 mg PO BID Qty: 60 0RF acetaminophen 325 mg capsule 325 mg PO Q4H PRN (Reason: fever or pain) Qty: 60 0RF ibuprofen 800 mg tablet 800 mg PO TID PRN (Reason: pain) Qty: 60 0RF Continued pantoprazole [Protonix] 40 mg tablet,delayed release (DR/EC) 40 mg PO BID 42 Days Qty: 84 1RF hydrocodone-acetaminophen 5-325 mg tablet 5 - 325 tab PO Q6H ondansetron 4 mg tablet,disintegrating 4 mg PO Q8H Rx Instructions: 4 mg orally on the tongue every 8 hours as needed for nausea and vomiting. Discharge Orders: Discharge Order (Routine); Ordered 06/17/23 Ordered By: David Goldsmith Referrals: David Goldsmith MD [Physician] - 07/02/23 1:30 pm (2 week: 07/02/23 @1:30 6 week: 07/27/23 @1:45) Patient Instructions: Bladder Sling for Women (DC), Vaginal Hysterectomy (DC), Anterior Vaginal Repair (DC), OB Discharge Report, OB Food/Drug Interaction Guide, Opioid Safety Discharge Attestations DINING ROOM CAPTAIN Time Spent in Discharge Care*: greater than 30 min Coding Level of Care Code Acute Code for Chg Fwd
[2023-06-17] MEDS: pantoprazole DR 40 mg Tablet PO (08:41)
[2023-06-17] MEDS: docusate sodium 100 mg Capsule PO (08:41)
[2023-06-17 08:59] VITALS: BP 131/83; PULSE 67; RESP 16; TEMP 36.8; O2SAT 99
[2023-06-17 09:50] VITALS: BP 131/83; PULSE 67; RESP 16; TEMP 36.8; O2SAT 99
== END 2023-06-17 09:51 | disposition home or self-care (01) ==
LOC: OBGYN 10:04
PROVIDERS: Admitting Provider Obstetrics & Gynecology; PCP Family Medicine; Visit Provider Obstetrics & Gynecology
PROC: (CPT 57240; principal; 2023-06-16 07:00)
PROC: 0JQC0ZZ Repair Pelvic Region Subcutaneous Tissue and Fascia, Open Approach (ICD-10-PCS; CPT 57240; 2023-06-16 07:00)
PROC: (CPT 57288; 2023-06-16 07:00)
DX: N93.9 Abnormal uterine and vaginal bleeding, unspecified (principal); N81.10 Cystocele, unspecified; N39.3 Stress incontinence (female) (male); I25.2 Old myocardial infarction; D25.9 Leiomyoma of uterus, unspecified
CPT/HCPCS: 57240; 57288; 58260; 36415; 51798; 80053; 81001; 81025; 84703; 85025; 85027; 86850; 86900; 88307; C1713; C1762; G0378; J0131; J0694; J1100; J1170; J1200; J1885; J2250; J2371; J2405; J2704; J3010; J3475; J3490; J7030; J7040; J7121; Q0162

== ENCOUNTER 2023-06-25 17:11 | Emergency (ER) | payer MEDICAID, SELFPAY ==
[2023-06-25] VITALS (8 sets, daily range): BP systolic 123–143; BP diastolic 84–95; PULSE 82–97; RESP 16–20; TEMP 37; O2SAT 90–100
[2023-06-25 18:55] LABS: Basophils % 0.5 %; Eosinophils # 0.3 10^3/uL (0.0-0.8); Hematocrit 31.5 % (36-47); Lymphocytes # 2.6 10^3/uL (0.8-4.8); Lymphocytes % 32.3 %; Mean Corpuscular HGB Conc 31.1 g/dL (30-55); Mean Corpuscular Volume 93.2 fl (85-98); Mean Platelet Volume 9.9 fL (7.4-10.4); Monocytes # 0.6 10^3/uL (0.2-0.9); Monocytes % 6.9 %; Neutrophils # 4.41 10^3/uL (1.8-7.7); Neutrophils % 55.2 %; Nucleated Red Blood Cells % 0 %; Platelet Count 356 10^3/cmm (157-399); Red Blood Count 3.38 10^6/uL (3.85-5.65); Red Cell Distribution Width 14.4 % (12.1-15.1); White Blood Count 7.99 10^3/uL (3.29-11.43)
[2023-06-25 19:19] LABS: Alanine Aminotransferase 50 U/L (0-33); Albumin Level 4.2 g/dL (3.5-5.2); Alkaline Phosphatase 146 U/L (35-105); Anion Gap 14.4 (5-19); Aspartate Amino Transferase 22 U/L (0-32); Blood Urea Nitrogen 11 mg/dL (6-20); Carbon Dioxide 25 mmol/L (22-29); Chloride 104 mmol/L (98-107); Creatinine Clr Calc Pharmacy 101.1436; Globulin 2.5 g/dL (1.3-4.6); Glomerular Filtration Rate 89.3 mL/min (90-130); Glucose 125 mg/dL (65-115); Osmolality Calculated 289 mOsm/kg (285-295); Potassium 4.4 mmol/L (3.5-5.1); Sodium 139 mmol/L (136-145); Total Bilirubin 0.2 mg/dL (0.15-1.2); Total Protein 6.7 g/dL (6.6-8.7)
[2023-06-25 19:21] LABS: Protein Urine 1+ (Negative); Urine Appearance Cloudy (CLEAR); Urine Color Dark Yellow (Yellow); pH Urine 5 (5-7)
[2023-06-25 19:22] LABS: Add Urine Microscopic? YES; Bilirubin Urine Neg (Negative); Blood Urine 3+ (Negative); Glucose Urine UA Norm (Normal); Ketones Urine Negative (Negative); Leukocyte Esterase Urine Negative (Negative); Nitrate Urine Negative (Negative); Urobilinogen Urine Norm (Negative)
[2023-06-25 19:31] LABS: Add Urine Culture? Yes; Bacteria Urine 1+ /hpf; Mucus Urine 2+ /hpf
--- NOTE | 2023-06-25 19:42 | CTR_ITS ---
PROCEDURE INFORMATION: Exam: CT Abdomen And Pelvis With Contrast Exam date and time: 06/25/2023 8:28 PM Age: 48 years old Clinical indication: Abdominal pain; Generalized; Prior surgery; Surgery date: <1 month; Surgery type: Hyst; Additional info: Concern for post surgery infection TECHNIQUE: Imaging protocol: Computed tomography of the abdomen and pelvis with contrast. Radiation optimization: All CT scans at this facility use at least one of these dose optimization techniques: automated exposure control; mA and/or kV adjustment per patient size (includes targeted exams where dose is matched to clinical indication); or iterative reconstruction. Contrast material: OMNI 350; Contrast volume: 100 ml; Contrast route: INTRAVENOUS (IV); COMPARISON: CT abdomen pelvis wo con [id number] 01/25/2023 8:56 AM RADIATION DOSE METRICS: Total DLP (mGy-cm): 899.95 FINDINGS: Liver: Hepatic steatosis. Gallbladder and bile ducts: Normal. No calcified stones. No ductal dilation. Pancreas: Normal. No ductal dilation. Spleen: Normal. No splenomegaly. Adrenal glands: Normal. No mass. Kidneys and ureters: Normal. No hydronephrosis. Stomach and bowel: Constipation. Diverticulosis without diverticulitis. Appendix: No evidence of appendicitis. Intraperitoneal space: Unremarkable. No free air. No significant fluid collection. Vasculature: Unremarkable. No abdominal aortic aneurysm. Lymph nodes: Unremarkable. No enlarged lymph nodes. Urinary bladder: Unremarkable as visualized. Reproductive: Hysterectomy changes with minimal edema in the pelvis, likely related to recent surgery. Left ovary 2.7 cm cyst. Bones/joints: Unremarkable. No acute fracture. Soft tissues: Unremarkable. CT/CT abdomen pelvis w con* [id number] IMPRESSION: 1. Hysterectomy changes with minimal edema in the pelvis, likely related to recent surgery. 2. Hepatic steatosis. 3. Left ovary 2.7 cm cyst. 4. Constipation. 5. Diverticulosis without diverticulitis.
--- NOTE | 2023-06-25 19:45 | ED_ITS ---
HPI - Female Genitourinary 2 General: Chief complaint: Urogenital-Female Stated complaint: post hysterectomy issuses Time Seen by Provider: 06/25/23 19:41 History of Present Illness: 48-year-old female comes in today with v aginal pain. Patient had a recent hysterectomy about 1 week ago. Patient reports straining to have a bowel movement today and having severe pain with it. Patient appears nontoxic. Patient appears in no acute distress. Patient reports no fever. Patient did see Dr. Goldsmith this morning and was checked out well. Patient reports she was told to come in to the ER by Dr. Goldsmith staff. Review of Systems 2 General: Reports: 10 or more systems reviewed and unremarkable except in HPI and below PFSH ED 2 PFSH: Medical History Abnormal uterine bleeding Heavy menses Pelvic pain in female Family History Father Diabetes Hypertension Hyperlipidemia Grandmother Breast cancer maternal, 60's Family/Other Ovarian cancer maternal cousin, 30's Denies family history of Colon cancer Clotting disorder Heart disease Anesthesia complication Bleeding disorder Uterine cancer Thyroid disease Stroke Social History Smoking and tobacco/nicotine status: never used tobacco/nicotine Alcohol intake: current Alcohol intake frequency: holidays/special occasions only Substance/Drug Use: never Female Reproductive History: Spontaneous abortions: No Physical Exam 2 Const: COMMON NORMALS: alert HENMT: COMMON NORMALS: normocephalic HEAD & SCALP: normocephalic Neck/C-Spine: COMMON NORMALS: full ROM Resp: COMMON NORMALS: normal respiratory effort and clear to auscultation bilaterally AUSCULTATION: clear to auscultation bilaterally Cardio: COMMON NORMALS: regular rate and regular rhythm RATE: regular rate RHYTHM: regular rhythm GI: COMMON NORMALS: Soft to palpation PALPATION: Yes Soft to palpation and No Tenderness to palpation present (GI) : EXTERNAL FEMALE EXAM: Yes normal appearance of the urethra and Yes other (Thin mucopurulent drainage) Extremity: COMMON NORMALS: normal to inspection Neuro: SENSORIUM/ORIENTATION: Yes alert Skin: COMMON NORMALS: turgor normal GENERAL SKIN EXAM: turgor normal Course 2 Vital Signs: Vital signs: Vital Signs Temperature 98.6 F 06/25/23 17:18 Pulse Rate 85 06/25/23 20:56 Respiratory Rate 20 H 06/25/23 20:44 Blood Pressure 143/95 06/25/23 20:56 Pulse Oximetry 100 06/25/23 20:56 Oxygen Delivery Me thod Room Air 06/25/23 20:56 MDM - Female Medical Decision Making 48-year-old female comes in today for complaints of lower abdominal pain. Patient appears nontoxic. Patient had a recent hysterectomy 1 week ago. Patient was concerned because she felt like something was protruding from her vagina. On exam abdomen soft bowel sounds normal. Mild tenderness to lower abdomen. External vaginal exam noted no pelvic organ prolapse visible. Patient did have some thin mucopurulent drainage. Differential diagnosis includes vaginitis, pelvic organ prolapse, dehiscence surgical wound. Laboratory values were unremarkable. CT showed no significant abnormalities. Reviewed exam with Dr. Grant he recommended going ahead and putting patient on some Flagyl and recommending stool softener and mineral oil. Reviewed this with patient with recommendations and need for treatment follow-up. Patient reported understanding. Lab Data 06/25/23 18:18 06/25/23 18:18 Radiology Impressions Abdomen/Pelvis CT 06/25/23 19:42 IMPRESSION: 1. Hysterectomy changes with minimal edema in the pelvis, likely related to recent surgery. 2. Hepatic steatosis. 3. Left ovary 2.7 cm cyst. 4. Constipation. 5. Diverticulosis without diverticulitis. Laboratory Results WBC 7.99 10^3/uL (3.29-11.43) 06/25/23 18:18 RBC 3.38 10^6/uL (3.85-5.65) L 06/25/23 18:18 Hgb 9.80 g/dL (11.27-16.99) L 06/25/23 18:18 Hct 31.5 % (36-47) L 06/25/23 18:18 MCV 93.2 fl (85-98) 06/25/23 18:18 MCH 29.0 pg (27-33) 06/25/23 18:18 MCHC 31.1 g/dL (30-55) 06/25/23 18:18 RDW 14.4 % (12.1-15.1) 06/25/23 18:18 Plt Count 356 10^3/cmm (157-399) 06/25/23 18:18 MPV 9.9 fL (7.4-10.4) 06/25/23 18:18 Neut % (Auto) 55.2 % 06/25/23 18:18 Lymph % (Auto) 32.3 % 06/25/23 18:18 [place] % (Auto) 6.9 % 06/25/23 18:18 Eos % (Auto) 4.0 % 06/25/23 18:18 Baso % (Auto) 0.5 % 06/25/23 18:18 Neut # (Auto) 4.41 10^3/uL (1.8-7.7) 06/25/23 18:18 Lymph # (Auto) 2.6 10^3/uL (0.8-4.8) 06/25/23 18:18 [place] # (Auto) 0.6 10^3/uL (0.2-0.9) 06/25/23 18:18 Eos # (Auto) 0.3 10^3/uL (0.0-0.8) 06/25/23 18:18 Baso # (Auto) 0.0 10^3/uL (0.0-0.1) 06/25/23 18:18 Nucleated RBC % (auto) 0 % 06/25/23 18:18 Nucleated RBCs # 0.0 /100WBC 06/25/23 18:18 Sodium 139 mmol/L (136-145) 06/25/23 18:18 Potassium 4.4 mmol/L (3.5-5.1) 06/25/23 18:18 Chloride 104 mmol/L (98-107) 06/25/23 18:18 Carbon Dioxide 25 mmol/L (22-29) 06/25/23 18:18 Anion Gap 14.4 (5-19) 06/25/23 18:18 BUN 11 mg/dL (6-20) 06/25/23 18:18 Creatinine 0.7 mg/dL (0.5-0.9) 06/25/23 18:18 GFR Calculation 89.3 mL/min (90-130) L 06/25/23 18:18 Glucose 125 mg/dL (65-115) H 06/25/23 18:18 Calculated Osmolality 289 mOsm/kg (285-295) 06/25/23 18:18 Calcium 9.0 mg/dL (8.5-10.5) 06/25/23 18:18 Total Bilirubin 0.2 mg/dL (0.15-1.2) 06/25/23 18:18 AST 22 U/L (0-32) 06/25/23 18:18 ALT 50 U/L (0-33) H 06/25/23 18:18 Alkaline Phosphatase 146 U/L (35-105) H 06/25/23 18:18 Total Protein 6.7 g/dL (6.6-8.7) 06/25/23 18:18 Albumin 4.2 g/dL (3.5-5.2) 06/25/23 18:18 Globulin 2.5 g/dL (1.3-4.6) 06/25/23 18:18 Urine Color Dark yellow (Yellow) 06/25/23 19:11 Urine Appearance Cloudy (CLEAR) A 06/25/23 19:11 Urine pH 5 (5-7) 06/25/23 19:11 Ur Specific [place] 1.030 (1.005-1.030) 06/25/23 19:11 Urine Protein 1+ (Negative) H 06/25/23 19:11 Urine Glucose (UA) Norm (Normal) 06/25/23 19:11 Urine Ketones Negative (Negative) 06/25/23 19:11 Urine Blood 3+ (Negative) H 06/25/23 19:11 Urine Nitrate Negative (Negative) 06/25/23 19:11 Urine Bilirubin Neg (Negative) 06/25/23 19:11 Urine Urobilinogen Norm mg/dL (Negative) 06/25/23 19:11 Ur Leukocyte Esterase Negative (Negative) 06/25/23 19:11 Urine RBC 10-15 /hpf (0-2) H 06/25/23 19:11 Urine WBC 10-15 /hpf (0-5) H 06/25/23 19:11 Ur Squamous Epith Cells 10-15 /hpf (0-5) H 06/25/23 19:11 Amorphous Sediment Not Reportable 06/25/23 19:11 Urine Bacteria 1+ /hpf (NONE) H 06/25/23 19:11 Urine Mucus 2+ /hpf 06/25/23 19:11 All radiology interpretation(s) finalized by discharge Discharge Plan Discharge Patient Disposition: Home Clinical Impression: History of hysterectomy Vaginitis Qualifiers: Chronicity: acute Qualified Code(s): N76.0 - Acute vaginitis Constipation Qualifiers: Constipation type: unspecified constipation type Qualified Code(s): K59.00 - Constipation, unspecified Condition: Stable Prescriptions: New metronidazole 500 mg tablet 500 mg PO Q8H 7 Days Qty: 21 0RF No Action pantoprazole [Protonix] 40 mg tablet,delayed release (DR/EC) 40 mg PO BID 42 Days Qty: 84 1RF hydrocodone-acetaminophen 5-325 mg tablet 5 - 325 tab PO Q6H ibuprofen 800 mg tablet 800 mg PO TID PRN (Reason: pain) Qty: 60 0RF hydrocodone-acetaminophen 5-325 mg tablet 1 tab PO Q4H PRN (Reason: pain) Qty: 60 0RF Iron (ferrous sulfate) 325 mg (65 mg iron) tablet 325 mg PO BID Qty: 60 0RF Colace 100 mg capsule 100 mg PO BID Qty: 60 0RF acetaminophen 325 mg capsule 325 mg PO Q4H PRN (Reason: fever or pain) Qty: 60 0RF ondansetron 4 mg tablet,disintegrating 4 mg PO Q8H Rx Instructions: 4 mg orally on the tongue every 8 hours as needed for nausea and vomiting. Discharge Orders: Discharge ED (Routine); Ordered 06/25/23 Ordered By: Juan C Hubbard Referrals: Kristina Tran DO [Primary Care Provider] - Discharge Diet: Usual diet Discharge Activity: Increase activity as tolerated Patient Instructions: Constipation (ED) Activity Restrictions/Additional Instructions: Take metronidazole 500 mg 3 times a day for the next 7 days. Drink plenty water with medication. Take Colace 100 mg twice a day for stool softener. Dr. Goldsmith would also like you to use mineral oil 1 tablespoon every night to help promote bowel softness and ease of stool passage. Follow-up with his office as scheduled. Return to ER for new concerns. Coding Level of Care Code ED Char Filter Tank Tender for Cristino Valera
[2023-06-25] MEDS: sodium chloride 0.9% 1,000 ML 999 ML IV (20:16)
[2023-06-25] MEDS: iohexol 350 mg/mL 500 mL Btl (per mL) IV (20:29)
[2023-06-25] MEDS: ketorolac 30 mg/mL INJ 15 MG IVP (20:43)
[2023-06-25] MEDS: fentaNYL 50 mcg/mL INJ 2mL IVP (20:44)
[2023-06-25] MEDS: metroNIDAZOLE 500 MG Tablet PO (21:42)
== END 2023-06-25 21:50 | disposition home or self-care (01) ==
PROVIDERS: Internal Medicine; Emergency Provider Nurse Practitioner Family; PCP Family Medicine
DX: N76.0 Acute vaginitis (principal); K59.00 Constipation, unspecified; Z90.710 Acquired absence of both cervix and uterus
CPT/HCPCS: 36415; 74177; 80053; 81001; 85025; 87070; 87086; 87205; 96374; 96375; 99285; J1885; J3010; J7030; Q9967

== ENCOUNTER → 2023-07-02 14:39 | Outpatient (BNVA) | payer MEDICAID, SELFPAY | PROVIDERS: PCP Family Medicine; Visit Provider Nurse Practitioner Women's Health | DX: R30.0 Dysuria (principal) | CPT/HCPCS: 81000; 87086 ==

== ENCOUNTER 2023-10-26 10:30 | Outpatient (CLI) | payer MEDICAID, SELFPAY ==
--- NOTE | 2023-10-26 10:30 | MM_ITS ---
WS: [id number] DIAGNOSTIC BILATERAL DIGITAL BREAST TOMOSYNTHESIS MAMMOGRAPHY WITH CAD LEFT breast ultrasound. HISTORY: N64.4 - Mastodynia , RIGHT left-sided bloody nipple discharge. COMPARISON: None available. TECHNIQUE: Bilateral craniocaudad, mediolateral oblique, and mediolateral views are submitted with to mosynthesis and SM. Spot compression LEFT CC. Computer aided detection utilized. Breast composition: The breasts are heterogeneously dense, which may obscure small masses. No mass or abnormality is noted within either breast. There is no nipple retraction. No calcifications. Ultraso und will be performed of the LEFT breast in the area of the previously described palpable abnormality and also to evaluate the ducts of the LEFT breast. LEFT breast ultrasound, limited Ultrasound at 10:00 is negative. No mass or distortion. There are no dilated ducts around the nipple. MM/[place] [id number] IMPRESSION: BI-RADS: 2-Benign FOLLOW UP: 1 Year Follow-up
--- NOTE | 2023-10-26 11:00 | US_ITS ---
WS: [id number] DIAGNOSTIC BILATERAL DIGITAL BREAST TOMOSYNTHESIS MAMMOGRAPHY WITH CAD LEFT breast ultrasound. HISTORY: N64.4 - Mastodynia , RIGHT left-sided bloody nipple discharge. COMPARISON: None available. TECHNIQUE: Bilateral craniocaudad, mediolateral oblique, and mediolateral views are submitted with to mosynthesis and SM. Spot compression LEFT CC. Computer aided detection utilized. Breast composition: The breasts are heterogeneously dense, which may obscure small masses. No mass or abnormality is noted within either breast. There is no nipple retraction. No calcifications. Ultraso und will be performed of the LEFT breast in the area of the previously described palpable abnormality and also to evaluate the ducts of the LEFT breast. LEFT breast ultrasound, limited Ultrasound at 10:00 is negative. No mass or distortion. There are no dilated ducts around the nipple. US/US breast LT limited* [id number] IMPRESSION: BI-RADS: 2-Benign FOLLOW UP: 1 Year Follow-up
== END 2023-10-26 10:53 | disposition home or self-care (01) ==
PROVIDERS: PCP Family Medicine; Visit Provider Nurse Practitioner Women's Health
DX: N64.4 Mastodynia (principal); R92.333 Mammographic heterogeneous density, bilateral breasts
CPT/HCPCS: 76642; 77062; G0279

== ENCOUNTER → 2024-02-04 11:17 | Outpatient (BNVA) | payer MEDICAID, SELFPAY | PROVIDERS: PCP Family Medicine; Visit Provider Obstetrics & Gynecology | DX: N94.10 Unspecified dyspareunia (principal); Z90.710 Acquired absence of both cervix and uterus; Z98.890 Other specified postprocedural states | CPT/HCPCS: 76830 ==

== ENCOUNTER → 2024-05-30 08:55 | Outpatient (BNVA) | payer MEDICAID, SELFPAY | PROVIDERS: PCP Family Medicine; Visit Provider Obstetrics & Gynecology | DX: R10.2 Pelvic and perineal pain (principal); N94.10 Unspecified dyspareunia | CPT/HCPCS: 80053; 81001; 85025 ==

== ENCOUNTER 2024-12-07 11:41 | Outpatient (CLI) | payer MEDICAID, SELFPAY ==
--- NOTE | 2024-12-07 11:45 | FL_ITS ---
WS: [id number] Modified barium swallow, 12/07/2024 Clinical Data: Other dysphagia Comparison: None. Fluoroscopy time: 2min [id number] # of spot films: Findings: The patient demonstrated premature spillage of thin liquids and food to the vallecula and piriform sinuses. There was minimal liquid penetration but no aspiration. No significant material was seen in the hypopharynx. The barium tablet moved normally from the oral pharynx into the hypopharynx then the e sophagus and finally the stomach. FL/FL barium swallow modifd [id number] Impression: 1. Minimal premature spillage of thin liquids and food to the vallecula and pir iform sinuses. 2. Minimal penetration of liquids but no aspiration.
== END 2024-12-07 11:42 | disposition home or self-care (01) ==
LOC: RAD 11:43
PROVIDERS: PCP Family Medicine; Visit Provider Nurse Practitioner Family
DX: R13.19 Other dysphagia (principal)
CPT/HCPCS: 74230; 92611

== ENCOUNTER 2025-02-21 16:28 | Emergency (ER) | payer MEDICAID, SELFPAY ==
--- OUTSIDE RECORDS SUMMARY | 2025-02-15 12:40 | XMS_ITS | Encounter Summary ---
Demographics Address [facility] [address] [address] [place] [address] Mobile Phone Preferred Language Unknown Marital Status Christianity Affiliation Unknown Race White Ethnic Group Not or Lati no Author Organization [facility] Address [address] [place] [address] Care Team Providers Care Commercial Housekeeper Name Role Phone Kristina Tran Primary Care Provider [phone]- [phone] Reason for Visit * Reason Comments Abdominal Pain Encounter Details Date Type Department Care Team (Latest Contact Info) Description 02/15/2025 12:40 PM ICE SCRAPER Office Visit [facility] Medicine [place] [address] [place] [address] [facility] [address] [place] [address] Diverticulitis (Primary Dx) Social History Tobacco Use Types Packs/Day Years Used Date Smoking Tobacco: Never Passive Smoke Exposure: Never Smokeless Tobacco: Never Alcohol Use Standard Drinks/Week Comments Not Currently 0 (1 standard drink = 0.6 oz pur e alcohol) occ Feeling Safe Answer Date Recorded Are you in a relationship wi th someone who hurts you emotionally and/or physically? No 10/12/2024 Comments No Sex and Gender Information Value Date Recorded Sex Assigned at Not on file Legal Sex Female 1:40 PM ICE SCRAPER Gender Identity Not on file Sexual Orientation Not on file documented as of this encounter Last Filed Vital Signs Vital Sign Reading Time Taken Comments Blood Pressure 130/68 02/15/2025 12:50 PM ICE SCRAPER Pulse 100 02/15/2025 12:50 PM ICE SCRAPER Temperature 36.9 C (98.4 F) 02/15/2025 12:50 PM ICE SCRAPER Respiratory Rate 18 02/15/2025 12:50 PM ICE SCRAPER Oxygen Saturation 97% 02/15/2025 12:50 PM ICE SCRAPER Inhaled Oxygen Concentration - - Weight 79.8 kg (176 lb) 02/15/2025 12:50 PM ICE SCRAPER Height 160 cm (5' 3 ) 02/15/2025 12:50 PM ICE SCRAPER Body Mass Index 31.18 02/15/2025 12:50 PM ICE SCRAPER documented in this encounter Progress Notes * Kristina Miner, AMMONIUM HYDROXIDE OPERATOR - 02/15/2025 12:51 PM CST No chief complaint on file. 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 She reports left lower abdominal pain, described as a shooting sensation, intensified by bladder pressure when retaining urine. This has persisted for several weeks, with hematuria noted yesterday. Urine and bowel movements have changed to bright yellow. No fever, but recent vomiting despite anti-nausea medication every 3 hours. She experiences left lower quadrant abdominal pain radiating to her back, with a history of degenerative disc disease. 10 point review of systems is otherwise negative except as mentioned above. Past Medical History: Diagnosis Date Depression Malignant neoplasm (CMS/HCC) Meningioma, recurrent of brain (CMS/HCC) 2009 Nausea 07/12/2024 Patient denies relevant medical history Current Outpatient Medications Medication Instructions acetaminophen (TYLENOL) 325 mg, EVERY 4 HOURS PRN amoxicillin-clavulanate (AUGMENTIN) 875-125 mg tablet 1 Tablet, Oral, EVERY 12 HOURS (BlD) dicyclomine (BENTYL) 10 mg capsule TAKE ONE CAPSULE BY MOUTH FOUR TIMES DAILY NEEDED (abdominal discomfort/cramping during diarrhea episodes). naloxone (NARCAN) 4 mg/spray [place], Non-Aerosol EMERGENCY USE ONLY: Administer 1 spray (4 mg) in one nostril one time. May repeat in alternating nostrils every 2-3 min until responsive or EMS arrives. ondansetron (ZOFRAN ODT) 8 mg Tablet, Rapid Dissolve dissolve one tablet on tongue and swallow withsaliva EVERY EIGHT hours as needed for FOR NAUSEA AND VOMITING oxyCODONE (ROXICODONE) 10 mg tablet TAKE ONE TABLET BY MOUTH EVERY SIX hours NEEDED. Not TO exceed FOUR PER DAY. peppermint oiL 90 mg, Oral, EVERY 6 HOURS PRN promethazine (PHENERGAN) 25 mg tablet TAKE ONE TABLET BY MOUTH EVERY FOUR hours as needed for FOR NAUSEA AND VOMITING sucralfate (CARAFATE) 1 Gram, Oral, FOUR TIMES DAILY BEFORE MEALS AND AT BEDTIME Past Surgical History: Procedure Laterality Date HX APPENDECTOMY HX COLONOSCOPY N/A 06/12/2023 COLONOSCOPY performed by Cristobal Garza MD at [facility] HX ESOPHAGOGASTRODUODENOSCOPY N/A 06/12/2023 ESOPHAGOGASTRODUODENOSCOPY performed by Cristobal Garza MD at [facility] HX EXCISION / BIOPSY BREAST / NIPPLE / DUCT Left 05/22/2017 Lipoma per path report [facility] HX HYSTERECTOMY HX TONSILLECTOMY HX TUBAL LIGATION MO CRNEC TREPH BONE FLAP CRNOT EXC MENINGIOMA STTL Left 04/15/2022 CRANIOTOMY TUMOR performed by Pauline Briones MD at [facility] [place] ESOPHAGOGASTRODUODENOSCOPY TRANSORAL DIAGNOSTIC N/A 01/26/2017 ESOPHAGOGASTRODUODENOSCOPY performed by Rahul Knott MD at [facility] [place] STRTCTC CPTR ASSTD PX CRANIAL INTRADURAL Left 04/15/2022 CRANIAL INTRADURAL STEREOTACTIC COMPUTER ASSISTED NAVIGATION performed by Pauline Briones MD at [facility] Past social, family, and medical history reviewed. BP 130/68 Pulse 100 Temp 98.4 ??F (36.9 ??C) Resp 18 Ht 5' 3 (1.6 m) Wt 79.8 kg (176 lb) LMP 04/23/2023 (Exact Date) SpO2 97% BMI 31.18 kg/m?? Physical Exam Constitutional: General: She is not in acute distress. Appearance: Normal appearance. She is not ill-appearing. HENT: Right Ear: External ear normal. Left Ear: External ear normal. Eyes: Conjunctiva/sclera: Conjunctivae normal. Pupils: Pupils are equal, round, and reactive to light. Cardiovascular: Rate and Rhythm: Normal rate and regular rhythm. Heart sounds: No murmur heard. Pulmonary: Effort: Pulmonary effort is normal. No respiratory distress. Abdominal: General: Bowel sounds are normal. Tenderness: There is abdominal tenderness in the left lower quadrant. There is no right CVA tenderness. Musculoskeletal: General: Normal range of motion. Skin: General: Skin is warm and dry. Neurological: Mental Status: She is alert and oriented to person, place, and time. Psychiatric: Mood and Affect: Mood normal. Behavior: Behavior normal. Exam: CT CHEST ABDOMEN PELVIS W CONT Diagnosis/Reason For Exam: Metastatic disease evaluation. Date/Time of Exam: 01/26/2024, 1:22 PM. Comparison: None.. Technique: CT of the chest, abdomen, and pelvis was performed following the administration of intravenous contrast. Sagittal and coronal reconstructions were created. Contrast: Isovue-300, 100 mL intravenous. FINDINGS: Chest: No pulmonary mass is identified. No focal consolidation, pleural effusion, or pneumothorax is identified. No enlarged hilar or mediastinal lymph nodes are seen. The heart size is within normal limits. The thoracic aorta is unremarkable. Abdomen and pelvis: The liver is borderline enlarged and normal contour. No hepatic mass is identified. The gallbladder is mildly distended. The spleen measures 11.7 cm in diameter. The pancreas is unremarkable. No adrenal nodules identified. The bilateral kidneys are unremarkable. There is no hydronephrosis or hydroureter. There is mild diffuse wall thickening of the mildly distended bladder. Possible small amount of fat stranding surrounds the bladder. The uterus and ovaries are not identified. A small amount stool and gas is seen throughout the rectum and colon. As the colon has a few scattered diverticula with no surrounding fat stranding. The appendix is not identified. There are postsurgical changes in the cecum. There is no significant bowel dilation. The stomach is nondistended. A small hiatal hernia is present. No free intraperitoneal air or free fluid is seen. No enlarged mesenteric or retroperitoneal lymph nodes are identified. The abdominal aorta is unremarkable. The heart size is at the upper limits of normal. Lung bases are unremarkable. There are mild degenerative changes of the lower lumbosacral spine. IMPRESSION: 1. No acute cardiopulmonary findings. 2. Possible cystitis. Clinical correlation is recommended. 3. Small hiatal hernia. 4. Colonic diverticulosis without evidence of diverticulitis. 5. Hysterectomy. 6. Appendectomy. Lab Results Component Value Date/Time PHUA 6.0 02/15/2025 01:06 PM SGUR 1.025 01/26/2024 12:09 PM URINELEUKOC Negative 02/15/2025 01:06 PM NITRITEUA Negative 02/15/2025 01:06 PM KETONEURINE Negative 02/15/2025 01:06 PM PROTEINUA Negative 02/15/2025 01:06 PM GLUUA Negative 02/15/2025 01:06 PM BLOODUA Negative 02/15/2025 01:06 PM ICD-10-CM ICD-9-CM 1. Diverticulitis K57.92 562.11 acetaminophen (TYLENOL) 325 mg tablet POC URINALYSIS DIPSTICK AUTOMATED CBC WITH DIFFERENTIAL COMPREHENSIVE METABOLIC PANEL amoxicillin-clavulanate (AUGMENTIN) 875-125 mg tablet Assessment & Plan Suspected diverticulitis: - Symptoms: left lower quadrant pain, changes in bowel movements - Previous CT scan from 2023 showed diverticulosis; today's urine test clear, no hematuria, leukocyte or nitrate - Initiate Augmentin antibiotics; conduct basic labs for kidney function and WBC count - Advise taking medication with food, probiotics, and yogurt - Seek ER if fever, severe abdominal pain, or uncontrolled vomiting MEENU UriosteguiC The author of this note, patient (or authorized field sales representative), and all other persons present consent to the audio recording of this visit for charting documentation purposes. This note was automatically generated, edited by a [employer] Secretary, and finalized by SHAMA Puga. SCRAPER documented in this encounter Plan of Treatment Upcoming Encounters Date Type Department Care Team (Latest Contact Info) Description 03/09/2025 9:20 AM ICE SCRAPER Office Visit [facility] [address] [facility] [address] [place] [address] Joni Carl MD [address] [place] [address] Armendariz Hortensia, AMMONIUM HYDROXIDE OPERATOR [address] [place] [address] 05/11/2025 9:00 AM ICE SCRAPER Hospital Encounter [facility] [address] [place] [address] Alexandre Woodard, DO [address] [place] [address] 05/11/2025 9:00 AM ICE SCRAPER - 05/11/2025 9:20 AM ICE SCRAPER Surgery [facility] [address] [place] [address] Alexandre Woodard, DO [address] [place] [address] ESOPHAGOGASTRODUODENOSCOPY 06/05/2025 10:00 AM ICE SCRAPER Office Visit [facility]3] Breast Surgery [place] [address] [place] [address] Lilibeth Parker, DO [address] [place] [address] 08/04/2025 11:40 AM CDT Office Visit [facility]3] Neurosurgery [place] [address] [place] [address] Jessica Robert, PA [address] [place] [address] 01/10/2026 9:45 AM CDT Office Visit [facility] Endocr[facility] [address] [facility] [address] [place] [address] Mauricio Chi MD [address] [facility] [address] [place] [address] Scheduled Procedures Name Priority Associated Diagnoses Date/Ti me ESOPHAGOGASTRODUODENOSCOPY Nausea; Oropharyngeal dysphagia; Chronic hoarseness; Bloody stools 05/11/2025 9:00 AM ICE SCRAPER COLONOSCOPY Nausea; Oropharyngeal dysphagia; Chronic hoarseness; Bloody stools 05/11/2025 9:00 AM ICE SCRAPER documented as of this encounter Goals Goal Patient Goal Type Associated Problems Recent Progress Patient-Stated? Author Autogenera chay Goal Care Plan Autogenerated Problem No Lashawn Geiger RN documented as of this encounter Procedures Procedure Name Priority Date/Time Associated Diagnosis Comments CBC WITH DIFFERENTIAL Routine 02/15/2025 1:09 PM ICE SCRAPER Diverticulitis COMPREHENSIVE METABOLIC PANEL Routine 02/15/2025 1:09 PM ICE SCRAPER Diverticulitis POC URINALYSIS DIPSTICK AUTOMATED Routine 02/15/2025 1:06 PM ICE SCRAPER Diverticulitis documented in this encounter Results * (ABNORMAL) COMPREHENSIVE METABOLIC PANEL (02/15/2025 1:09 PM ICE SCRAPER) GLUCOSE 104(H) 65 - 99 mg/dL [facility] Comment: Fasting reference interval For someone without known diabetes, a glucose value between 100 and 125 mg/dL is consistent with prediabetes and should be confirmed with a follow-up test. BUN 10 7 - 25 mg/dL [facility] CREATININE 1.00 0.50 - 1.03 mg/dL [facility] GFR 69 > OR = 60 mL/min/1. 73m2 [facility] BUN/CREAT RATIO SEE NOTE: 6 - 22 (calc) [facility] Comment: Not Reported: BUN and Creatinine are within reference range. SODIUM 137 135 - 146 mmol/L [facility] POTASSIUM 4.3 3.5 - 5.3 mmol/L [facility] CHLORIDE 103 98 - 110 mmol/L [facility] CO2 23 20 - 32 mmol/L [facility] CALCIUM 9.8 8.6 - 10.4 mg/dL [facility] TOTAL PROTEIN 7.5 6.1 - 8.1 g/dL [facility] ALBUMIN 4.5 3.6 - 5.1 g/dL [facility] GLOBULIN 3.0 1.9 - 3.7 g/dL (calc) [facility] ALBUMIN/GLOBULIN RATIO 1.5 1.0 - 2.5 (calc) [facility] BILIRUBIN TOTAL 0.5 0.2 - 1.2 mg/dL [facility] ALKALINE PHOSPHATASE 96 37 - 153 U/L [facility] AST 12 10 - 35 U/L [facility] ALT 24 6 - 29 U/L [facility] Comment: FASTING:UNKNOWN FASTING: UNKNOWN Test Performed at: [facility] [address] [place] [phone] Rashaun Ramirez MD Blood 02/15/2025 1:09 PM ICE SCRAPER 02/15/2025 1:09 PM ICE SCRAPER Kristina Miner AMMONIUM HYDROXIDE OPERATOR CHEMISTRY ORDERABLES Final Result [facility] [phone] [facility] [address] [place] [address] * CBC WITH DIFFERENTIAL (02/15/2025 1:09 PM ICE SCRAPER) WBC 7.4 3.8 - 10.8 Thousand/u L [facility] RBC 4.21 3.80 - 5.10 Million/uL [facility] HEMOGLOBIN 12.8 11.7 - 15.5 g/dL [facility] HEMATOCRIT 39.6 35.0 - 45.0 % [facility] MCV 94.1 80.0 - 100.0 fL [facility] MCH 30.4 27.0 - 33.0 pg [facility] MCHC 32.3 32.0 - 36.0 g/dL [facility] Comment: For adults, a slight decrease in the calculated MCHC value (in the range of 30 to 32 g/dL) is most likely not clinically significant; however, it should be interpreted with caution in correlation with other red cell parameters and the patient's clinical condition. RDW 12.9 11.0 - 15.0 % [facility] PLATELETS 314 140 - 400 Thousand/u L [facility] MPV 10.1 7.5 - 12.5 fL [facility] NEUTROPHIL ABSOLUTE 4,906 1,500 - 7,800 cells/uL [facility] LYMPHOCYTE ABSOLUTE 2,020 850 - 3,900 cells/uL [facility] MONOCYTE ABSOLUTE 385 200 - 950 cells/uL [facility] EOSINOPHIL ABSOLUTE 59 15 - 500 cells/uL [facility] BASOPHILS ABSOLUTE 30 0 - 200 cells/uL [facility] NEUTROPHIL 66.3 % [facility] LYMPHOCYTES 27.3 % [facility] MONOCYTE 5.2 % [facility] EOSINOPHILS 0.8 % [facility] BASOPHILS 0.4 % [facility] Comment: FASTING:UNKNOWN FASTING: UNKNOWN Test Performed at: [facility] [address] Rashaun Ramirez MD Blood 02/15/2025 1:09 PM ICE SCRAPER 02/15/2025 1:09 PM ICE SCRAPER us Kristina Miner AMMONIUM HYDROXIDE OPERATOR HEMATOLOGY ORDERABLES Ana l Result [facility] [phone] [facility] [email or web address] [phone] * POC URINALYSIS DIPSTICK AUTOMATED (02/15/2025 1:06 PM ICE SCRAPER) COLOR UA POC Yellow Pale to Dark Yellow [facility] CLARITY UA POC Clear Clear, Other [facility] GLUCOSE UA POC Negative Negative, Normal [facility] BILIRUBIN UA POC Negative Negative [facility] KETONES UA POC Negative Negative [facility] SPECIFIC GRAVITY UA POC 1.015 1.000 - 1.030 [facility] BLOOD UA POC Negative Negative [facility] C LINIC [facility] ED PH UA POC 6.0 5.0 - 8.0 [facility] CLIN IC [facility] ED PROTEIN UA POC Negative Negative [facility] UROBILINOGEN UA POC 0.2 <2.0 mg/dL [facility] NITRITE UA POC Negative Negative [facility] LEUKOCYTE ESTERASE UA POC Negative Negative [facility] KIT LOT NUMBER POC [phone] [facility] KIT EXP DATE POC 10/03/2025 [facility] Urine 02/15/2025 1:06 PM ICE SCRAPER Kristina Miner AMMONIUM HYDROXIDE OPERATOR POINT OF CARE TESTING Ana miller Result [facility] CLIA# [id number] [address] [place] [address] documented in this encounter Visit Diagnoses Diagnosis Diverticulitis- Primary Diverticulitis of colon (without mention of hemorrhage) documented in this encounter Additional Health Concerns Active Problems Noted Date Diagnosed Date Autogenerated Problem 01/30/2025 documented as of this encounter Care Teams Commercial Housekeeper Relationship Specialty Start Date End Date Kristina Tran DO [address] [place] [address] PCP - General Family Practice 03/02/23 documented as of this encounter
--- OUTSIDE RECORDS SUMMARY | 2025-02-17 09:15 | XMS_ITS | Encounter Summary ---
Demographics Address [address] [place] [address] Mobile Phone Preferred Language Unknown Marital Status Sabianism Affiliation Unknown Race White Ethnic Group Not or Lati no Author Organization [facility] Address [address] [place] [address] Care Team Providers Care On Site Construction Superintendent Name Role Phone Kristina Tran DO Primary Care Provider [phone]- [phone] Reason for Visit * Reason Comments Abdominal Pain Encounter Details Date Type Department Care Team (Late st Contact Info) Description 02/17/2025 9:15 AM EXHIBIT PREPARATOR - 02/17/2025 1:11 PM [facility] Emergency [facility] Emergency Medicine [address] [address] Sherrell Vazquez MD [address] [facility] [address] [place] [phone] Left lower quadrant abdominal pain (Primary Dx) Discharge Disposition: Home or Self Care Social History Tobacco Use Types Packs/Day Years Used Date Smoking Tobacco: Never Passive Smoke Exposure: Never Smokeless Tobacco: Never Alcohol Use Standard Drinks/Week Comments Not Currently 0 (1 standard drink = 0.6 oz pur e alcohol) occ Food Insecurity Answer Date Recorded Do you find you are eating l ess than you should because you can t pay for food? No 02/17/2025 Transportation Needs Answer Date Record ed Have you gone without health care because you didn t have a way to get there? Or worry about transportation for future doctor visits, diamond picker medication, etc.? No 2024 Housing Stability Answer Date Recorded Do you worry you won t have a steady place to sleep or struggle to pay rent or mortgage? No 02/17/2025 Utility Needs Answer Date Recorded Do you have difficulty payin g for utility costs (electric, water or gas bills)? No 02/17/2025 Medication Needs Answer Date Recorded Have you skipped taking medi cation due to cost or worry you can t afford new medications? No 02/17/2025 Feeling Safe Answer Date Recorded Are you in a relationship wi th someone who hurts you emotionally and/or physically? No 02/17/2025 Comments No Sex and Gender Information Value Date Recorded Sex Assigned at Not on file Legal Sex Female 1:40 PM EXHIBIT PREPARATOR Gender Identity Not on file Sexual Orientation Not on file documented as of this encounter Last Filed Vital Signs Vital Sign Reading Time Taken Comments Blood Pressure 136/93 02/17/2025 1:00 PM EXHIBIT PREPARATOR Pulse 73 02/17/2025 1:00 PM EXHIBIT PREPARATOR Temperature 36.9 C (98.4 F) 02/17/2025 9:20 AM EXHIBIT PREPARATOR Respiratory Rate 15 02/17/2025 1:00 PM EXHIBIT PREPARATOR Oxygen Saturation 100% 02/17/2025 1:00 PM EXHIBIT PREPARATOR Inhaled Oxygen Concentration - - Weight 80 kg (176 lb 4.8 oz) 02/17/2025 9:20 AM EXHIBIT PREPARATOR Height 160 cm (5' 3 ) 02/17/2025 9:20 AM EXHIBIT PREPARATOR Body Mass Index 31.23 02/17/2025 9:20 AM EXHIBIT PREPARATOR documented in this encounter Discharge Instructions * Discharge Instructions* Dunia Jade FNP - 02/17/2025 1:07 PM EXHIBIT PREPARATOR Follow up with your Gi and pain management doctor. Will send Cipro BIT PREPARATOR * Attachments The following attachments cannot be sent through Care Everywhere. * Abdominal Pain (Andorran) * Ciprofloxacin (Andorran) documented in this encounter Medications at Time of Discharge acetaminophen (TYLENOL) 325 mg tabletIndications:D iverticulitis Take 325 mg by mouth every 4 hours as needed for Pain. dicyclomine (BENTYL) 10 mg capsuleIndications: Abdominal cramping TAKE ONE CAPSULE BY MOUTH FOUR TIMES DAILY NEEDED (abdominal discomfort/cramp ing during diarrhea episodes). 120 Capsule 1 01/18/2025 ondansetron (ZOFRAN ODT) 8 mg Tablet, Rapid DissolveIndications :Acute nonintractable headache, unspecified headache type dissolve one tablet on tongue and swallow with saliva EVERY EIGHT hours as needed for FOR NAUSEA AND VOMITING 90 Tablet 3 11/30/2024 oxyCODONE (ROXICODONE) 10 mg tablet TAKE ONE TABLET BY MOUTH EVERY SIX hours NEEDED. Not TO exceed FOUR PER DAY. 10/13/2024 sucralfate (CARAFATE) 1 gram tabletIndications:G astritis, presence of bleeding unspecified, unspecified chronicity, unspecified gastritis type Take 1 Tablet (1 Gram) by mouth 4 times daily before meals and at bedtime. 120 Tablet 3 02/23/2024 naloxone (NARCAN) 4 mg/spray Sabine, Non-Aerosol EMERGENCY USE ONLY: Administer 1 spray (4 mg) in one nostril one time. May repeat in alternating nostrils every 2-3 min until responsive or EMS arrives. 2 Each 3 02/01/2024 ciprofloxacin HCl (CIPRO) 250 mg tablet Take 1 Tablet (250 mg) by mouth 2 times daily for 3 days. 6 Tablet 02/17/2025 02/21/20 25 documented as of this encounter ED Notes * Madhuri Rowe RN - 02/17/2025 11:[address] Vazquez/Chalino Jade WE[employer] FISHERMAN notified that patient remains a 01/13 with her abdominal pain BIT PREPARATOR * Lorenzo Hernandez RN - 02/17/2025 9:34 AM CST Erika Valentino 50 y.o. female, arrived to the ED via TRANSPORTATION: private vehicle for complaints of Chief Complaint Patient presents with Abdominal Pain This patient was dropped off for complaints of LLQ Abdominal Pain that radiates to the Left Flank. Patient ambulates well to room, does appear anxious. States she has history of Meningioma and Diverticulosis, has been having LLQ pain for 2 weeks with occasional Nausea/Vomiting. Has been taking upwards of 5- 8mg Zofran will some relief of Nausea. Reports a few episodes of yellow colored stools, mos t recently this morning prior to arrival. Denies fever, urinary complaints, or other complaints at this time. Vitals taken, patient placed on monitor, clothing removed as needed per policy, privacy provided to patient. Respiratory: WDL - Regular rhythm, symmetrical chest expansion, no dyspnea , Cardiac/Circulatory: WDL - No numbness or tingling, no chest pain , Skin: WDL - Normal color for ethnicity, skin intact, patient is Alert and Oriented x4, pain scale: 8/10, findings; bleeding: without any bleeding noted. Behavior during evaluation: appropriate. Belongings secured, patient Weapons assessment: denied possession of any weapons or firearms at this time. Patient comforted, all questions an swered to the best of the staff's ability, education performed, and left patient in the room with the call light in reach, bed in lowest position, wheels locked, side rails up. BIT PREPARATOR * Dunia Jade FNP - 02/17/2025 9:05 AM CST 02/17/25 10:13 AM HISTORY OF PRESENT ILLNESS History of Present Illness The patient presents for evaluation of abdominal pain, nausea, and vomiting. She has been experiencing gastrointestinal disturbances for an extended period, which were diagnosed as diverticulitis approximately a year ago. A month ago, she began to notice intermittent yellow stools. Two days ago, she experienced severe abdominal pain that necessitated crawling to the bathroom. She was bedridden for four days due to the intensity of the pain. She also reported a palpable knot in her abdomen associated with severe pain. She was prescribed amoxicillin for a suspected infection but was unable to tolerate it. She has not had any recent blood draws or intravenous therapy. She was advised to seek emergency care if she started vomiting, but she did not follow this advice imme diately. She attempted to manage the pain with Tylenol, but this resulted in nausea. She has a history of diverticulitis and underwent a colonoscopy last year. She also reported new-onset back pain and bladder discomfort, which she initially managed with oxycodone. However, due to a reduction in her oxycodone dosage, she experienced severe pain. She reported dark yellow urine and uncontrolled bowel movements. She was prescribed Zofran for nausea but experi enced vomiting after administration. She also reported hard, small stools followed by dark brown diarrhea. She has no history of urinary tract infections and maintains adequate hydration. She was brought to the hospital by a friend due to worsening vomiting and inability to take medication. PAST SURGICAL HISTORY: Hemorrhoid surgery PAST MEDICAL HISTORY REVIEWED MEDICAL: Patient has a past medical history of Depression, Diverticulosis, Malignant neoplasm (CMS/HCC), Meningioma, recurrent of brain (CMS/HCC) (2009), Nausea (07/12/2024), and Patient denies relevant medical history. SURGICAL: Patient has a past surgical history that includes appendectomy; tubal ligation; tonsillectomy; pr esophagogastroduodenoscopy transoral diagnostic (N/A, 01/26/2017); pr crnec treph bone flap crnot excmeningioma sttl (Left, 04/15/2022); pr strtctc cptr asstd px cranial intradural (Left, 04/15/2022); esophagogastroduodenoscopy (N/A, 06/12/2023); colonoscopy (N/A, 06/12/2023); hysterectomy; and excision / biopsy breast / nipple / duct (Left, 05/22/2017). ALLERGIES Flu vaccine 2010(6-35 mos)(pf), Tramadol, and Venlafaxine PHYSICAL EXAM INITIAL VS BP: (!) 129/101 (02/17/25919), Heart Rate: 82 bpm (02/17/25919), Resp: 15 (02/17/25919), Pulse: 78 (02/17/25929), Temp: 98.4 ??F (36.9 ??C) (02/17/25919), Temp src: Temporal (02/17/25919), SpO2: 100 % (02/17/25919), Height: 5' 3 (160 cm) (02/17/25919), Weight: 80 kg (176 lb 4.8 oz)(02/17/25919), BMI (Calculated): (!) 31.25 (02/17/25919) Patient's last menstrual period was 04/23/2023 (exact date). Blood pressure (!) 136/93, pulse 73, temperature 98.4 ??F (36.9 ??C), temperature source Temporal, resp. rate 15, height 5' 3 (1.6 m), weight 80 kg (176 lb 4.8 oz), last menstrual period 04/23/2023,SpO2 100%, not currently . Physical Exam Constitutional: General: She is not in acute distress. Appearance: She is well-developed. She is not ill-appearing. HENT: Head: Normocephalic. Mouth/Throat: Mouth: Mucous membranes are moist. Cardiovascular: Rate and Rhythm: Normal rate and regular rhythm. Pulmonary: Effort: Pulmonary effort is normal. Breath sounds: Normal breath sounds. Abdominal: General: Abdomen is flat. Bowel sounds are normal. Tenderness: There is abdominal tenderness in the right lower quadrant. Skin: General: Skin is warm and dry. Capillary Refill: Capillary refill takes less than 2 seconds. Neurological: General: No focal deficit present. Mental Status: She is alert. Psychiatric: Mood and Affect: Mood is anxious. Physical Exam DIAGNOSTICS LAB: CBC WITH DIFFERENTIAL - Abnormal Result Value WBC 7.4 RBC 4.01 HEMOGLOBIN 12.1 HEMATOCRIT 36.5 MCV 91.0 MCH 30.2 MCHC 33.2 RDW 12.7 RDW-STDEV 41.9 PLATELETS 275 MPV 9.6 (*) NEUTROPHILS 58 LYMPHOCYTES 34 MONOCYTES 7 EOSINOPHILS 1 BASOPHILS 1 IMMATURE GRANULOCYTES 0 NEUTROPHIL ABSOLUTE 4.33 LYMPHOCYTE ABSOLUTE 2.50 MONOCYTE ABSOLUTE 0.48 (*) EOSINOPHIL ABSOLUTE 0.06 BASOPHILS ABSOLUTE 0.04 IMMATURE GRANULOCYTES ABSOLUTE 0.03 COMPREHENSIVE METABOLIC PANEL - Abnormal SODIUM 138 POTASSIUM 4.4 CHLORIDE 105 CO2 22 CALCIUM 9.6 BUN 9 CREATININE 0.97 (*) GLUCOSE 100 (*) TOTAL PROTEIN 7.5 ALBUMIN 4.4 BILIRUBIN TOTAL 0.3 ALKALINE PHOSPHATASE 92 AST 18 ALT 28 GFR >60 ANION GAP 11 URINALYSIS WITH REFLEX MICROSCOPIC - Abnormal COLOR UA Yellow CLARITY UA Cloudy (*) SPECIFIC GRAVITY UA 1.025 PH UA 5.5 LEUKOCYTE ESTERASE UA Negative NITRITE UA Negative PROTEIN UA Negative GLUCOSE UA Negative KETONES UA Negative UROBILINOGEN UA 0.2 BILIRUBIN UA Negative BLOOD UA Negative URINALYSIS MICROSCOPY ONLY - Abnormal WBC UA 0-2 RBC UA 0-2 BACTERIA UA 1+ (*) EPITHELIAL CELLS, URINE >25 (*) COMMENT, URINE 2+ Mucus LIPASE - Normal LIPASE 49 TSH - Normal TSH 1.03 LACTIC ACID - Normal LACTIC ACID 1.0 STOOL CULTURE W/SHIGA TOXIN RADIOLOGY: CT ABDOMEN PELVIS W CONTRAST Radiologist Impression IMPRESSION: Diverticulosis without evidence of diverticulitis. EKG: Results Results independently interpreted by SHAMA Lewis PROCEDURES Procedures MEDICAL DECISION MAKING AND PLAN OF CARE Assessment & Plan 1. Abdominal pain: - She has a history of diverticulitis and has been experiencing severe abdominal pain, yellow stools, and dark brown diarrhea. - She was previously prescribed amoxicillin but could not keep it down. - Lab work will be conducted, a CT scan of the abdomen will be performed, and a urine sample will be collected for further analysis. - An IV will be administered. 2. Nausea and vomiting: - She has been taking Zofran for nausea but has experienced vomiting shortly after administration. - The Poison Control Center was consulted regarding the amount of Zofran taken, and no additional changes are needed. - She is advised to avoid taking more Zofran. ED Course as of 02/17/25 1310 ThuFeb 17, 2025 1041 Will give 1 time dose of oxycodone for pain. Patient takes this medication at home. [PH] [address] of abd and pelvis. Pain and nausea controlled at the moment. [PH] 1238 CT is negative for acute findings of abd and pelvis. WBC is WNL. CMP stable with a negative lipase and lactic acid. [PH] [address] negative for acute findings. Labs are stable. Patient is going to follow up with her GI outpatient and her pain management doctor. Will dc Augmentin and start cipro. [PH] ED Course User Index [PH] Dunia Jade FNP Medical Decision Making Amount and/or Complexity of Data Reviewed Labs: ordered. Radiology: ordered. Risk Prescription drug management. Clinical Scoring & Consults Medications Administered During the ED Stay from 02/17/2025 0906 to 02/17/2025 1310 Date/Time Order Dose Route Action 02/17/2025 1110 EXHIBIT PREPARATOR sodium chloride 0.9 % bolus solution 1,000 mL 0 mL IV Stopped 02/17/2025 1038 EXHIBIT PREPARATOR sodium chloride 0.9 % bolus solution 1,000 mL 1,000 mL IV New Bag 02/17/2025 1054 EXHIBIT PREPARATOR oxyCODONE (ROXICODONE) tablet 5 mg 5 mg Oral Given 02/17/2025 1143 EXHIBIT PREPARATOR iohexoL (OMNIPAQUE) 300 mg iodine/mL injection (single-use vial) 95 mL 95 mL IVContrast Given 02/17/2025 1145 EXHIBIT PREPARATOR sodium chloride flush injection 10 mL 10 mL IV Given . New Prescriptions for this Encounter CIPROFLOXACIN HCL (CIPRO) 250 MG TABLET Take 1 Tablet (250 mg) by mouth 2 times daily for 3 days. LAST VS BP: (!) 136/93 (02/17/25 1300), Heart Rate: 72 bpm (02/17/25 1300), Resp: 15 (02/17/25 1230), Pulse: 73 (02/17/25 1300), Temp: 98.4 ??F (36.9 ??C) (02/17/25 0920), Temp src: Temporal (02/17/25 09),SpO2: 100 % (02/17/25 1300) CLINICAL IMPRESSION Diagnosis Diagnosis Comment Added By Time Added Left lower quadrant abdominal pain [R10.32] Dunia Jade FNP 02/17/2025 1:06 PM DISPOSITION, EDUCATION AND MEDICATION RECONCILIATION Medications reconciled. See after visit summary for patient education on discharged patients. ED Disposition ED Disposition Discharge Condition Stable User Dunia Jade FNP Date/Time ThuFeb 17, 2025 1:06 PM Comment -- Cosigned by Sherrell Vazquez MD at 02/17/2025 7:57 PM EXHIBIT PREPARATOR BIT PREPARATOR BIT PREPARATOR documented in this encounter Miscellaneous Notes * Gen AI GEORGE - GENERATIVE AI HANDOFF NOTE - 02/18/2025 11:54 PM CST ## ER_course: ## # DIAGNOSIS: Left lower quadrant abdominal pain. The patient, Erika Valentino, a 50-year-old female, presented with complaints of left lower quadrant abdominal pain radiating to the left flank, accompanied by nausea and vomiting. She has a history of diverticulitis and meningioma. The patient reported severe abdominal pain, yellow stools, and dark brown diarrhea. She was previously prescribed amoxicillin but could not tolerate it. # During the ER visit, the following abnormalities were noted: - Blood pressure was elevated at 136/93. - Abdominal tenderness was present in the right lower quadrant. - Urinalysis showed cloudy urine with 1+ bacteria and >25 epithelial cells. - CT abdomen and pelvis showed diverticulosis without evidence of diverticulitis. - Labs were stable with a negative lipase and lactic acid. # Medications administered included: - Sodium chloride 0.9% IV bolus. - Oxycodone 5 mg orally for pain. - Iohexol IV contrast for CT scan. # The patient was advised to avoid taking more Zofran for nausea. The Poison Control Center was consulted regarding the amount of Zofran taken, and no additional changes were needed. ## Follow_up_orders: ## # The patient was discharged with a new prescription for Ciprofloxacin HCL (Cipro) 250 mg to be taken orally twice daily for 3 days. # She is to follow up with her GI outpatient and her pain management doctor. # Pending labs for CT of the abdomen and pelvis were noted, but the CT was negative for acute findings. ## Home_Situation: ## # The patient was brought to the hospital by a friend, indicating she may have some support for transportation. No other factors potentially impairing follow-up care, such as financial limitations or language barriers, were noted in the ER notes. BIT PREPARATOR documented in this encounter Plan of Treatment Upcoming Encounters Date Type Department Care Team (Latest Contact Info) Description 03/09/2025 9:20 AM EXHIBIT PREPARATOR Office Visit [facility] [address] [place] [phone] Joni Carl MD [address] [place] [address] Hortensia Armendariz FNP [address] [place] [address] 05/11/2025 9:00 AM EXHIBIT PREPARATOR Hospital Encounter [facility] Endoscopy [address] [place] [address] Alexandre Woodard, DO [address] [place] [address] 05/11/2025 9:00 AM EXHIBIT PREPARATOR - 05/11/2025 9:20 AM EXHIBIT PREPARATOR Surgery [facility] Endoscopy [address] [place] [address] Alexandre Woodard, DO [address] [place] [address] ESOPHAGOGASTRODUODENOSCOPY 06/05/2025 10:00 AM EXHIBIT PREPARATOR Office Visit [facility] Breast [facility] [address] [place] [address] Lilibeth Parker, [address] [place] [address] 08/04/2025 11:40 AM CDT Office Visit [facility] Neurosurgery [address] [place] [address] Jessica Robert, PA [address] [place] [address] 01/10/2026 9:45 AM CDT Office Visit [facility] Endocrinology [facility] [address] [place] [phone] Mauricio Chi MD [address] [place] [address] Scheduled Procedures Name Priority Associated Diagnoses Date/Ti me ESOPHAGOGASTRODUODENOSCOPY Nausea; Oropharyngeal dysphagia; Chronic hoarseness; Bloody stools 05/11/2025 9:00 AM EXHIBIT PREPARATOR COLONOSCOPY Nausea; Oropharyngeal dysphagia; Chronic hoarseness; Bloody stools 05/11/2025 9:00 AM EXHIBIT PREPARATOR documented as of this encounter Goals Goal Patient Goal Type Associated Problems Recent Progress Patient-Stated? Author Autogenera chay Goal Care Plan Autogenerated Problem No Lashawn Geiger RN documented as of this encounter Procedures Procedure Name Priority Date/Time Associated Diagnosis Comments CT ABDOMEN PELVIS W CONTRAST Stat 02/17/2025 11:46 AM EXHIBIT PREPARATOR STOOL CULTURE W/SHIGA TOXIN Stat 02/17/2025 11:37 AM EXHIBIT PREPARATOR URINALYSIS MICROSCOPY ONLY Stat 02/17/2025 11:32 AM EXHIBIT PREPARATOR URINALYSIS W/REFLEX MICROSCOPIC Stat 02/17/2025 11:32 AM EXHIBIT PREPARATOR LACTIC ACID Stat 02/17/2025 10:30 AM EXHIBIT PREPARATOR CBC WITH DIFFERENTIAL Stat 02/17/2025 10:30 AM EXHIBIT PREPARATOR TSH Stat 02/17/2025 10:30 AM EXHIBIT PREPARATOR LIPASE Stat 02/17/2025 10:30 AM EXHIBIT PREPARATOR COMPREHENSIVE METABOLIC PANEL Stat 02/17/2025 10:30 AM EXHIBIT PREPARATOR documented in this encounter Results * CT ABDOMEN PELVIS W CONTRAST (02/17/2025 11:46 AM EXHIBIT PREPARATOR) Anatomical Region Laterality Modality Abdomen Computed Tomogra phy 02/17/2025 11:4 7 AM EXHIBIT PREPARATOR Impressions 02/17/2025 12:18 PM EXHIBIT PREPARATOR IMPRESSION: Diverticulosis without evidence of diverticulitis. Narrative 02/17/2025 12:18 PM EXHIBIT PREPARATOR Exam: CT ABDOMEN PELVIS W CONTRAST Date/Time of Exam: 02/17/2025 11:46 AM Reason For Exam: Abdominal pain, acute, nonlocalized. Contiguous axial images were obtained through the abdomen and pelvis. Sagittal and coronal reformatted images are included. 95 mL of Isovue-300 was given intravenously. There is no evidence of any abdominal aortic aneurysm or dissection. The appendix is not directly visualized however there is no evidence of any inflammatory changes in the fat surrounding the cecum. A few scattered diverticula are present in the sigmoid colon. There is no evidence of any ureteral stones or any dural titration of the ureters or collecting systems. The liver, spleen, pancreas, kidneys and adrenals are unremarkable. There is no evidence of abnormal soft tissue masses, abnormal fluid collections or adenopathy in the abdomen or pelvis. Bowel loops are nondilated. There is no evidence of any free intraperitoneal air. Procedure Note Steven Carrillo MD - 02/17/2025 Exam: CT ABDOMEN PELVIS W CONTRAST Date/Time of Exam: 02/17/2025 11:46 AM Reason For Exam: Abdominal pain, acute, nonlocalized. Contiguous axial images were obtained through the abdomen and pelvis. Sagittal and coronal reformatted images are included. 95 mL of Isovue-300 was given intravenously. There is no evidence of any abdominal aortic aneurysm or dissection. The appendix is not directly visualized however there is no evidence of any inflammatory changes in the fat surrounding the cecum. A few scattered diverticula are present in the sigmoid colon. There is no evidence of any ureteral stones or any dural titration of the ureters or collecting systems. The liver, spleen, pancreas, kidneys and adrenals are unremarkable. There is no evidence of abnormal soft tissue masses, abnormal fluid collections or adenopathy in the abdomen or pelvis. Bowel loops are nondilated. There is no evidence of any free intraperitoneal air. IMPRESSION: Diverticulosis without evidence of diverticulitis. [facility] CT ORDERABLES Final Resul t * STOOL CULTURE W/SHIGA TOXIN (02/17/2025 11:37 AM EXHIBIT PREPARATOR) CULTURE NORMAL VAL 02/19/2025 10:05 AM [facility] CULTURE NEGATIVE 02/19/2025 10:05 AM [facility] SHIGA TOXIN 1 Negative 02/19/2025 10:05 AM EXHIBIT PREPARATOR [facility] SHIGA TOXIN 2 Negative 02/19/2025 10:05 AM [facility] Stool STOOL SPECIMEN / Unknown Collection / Unknown 02/17/2025 11:37 AM EXHIBIT PREPARATOR 02/17/2025 11:43 AM EXHIBIT PREPARATOR Narrative [facility] - 02/19/2025 10:05 AM EXHIBIT PREPARATOR Stools are screened for Salmonella,Shigella,Campylobacter,Shiga toxin producing E.coli, including E.coli O157, Aeromonas,Plesiomonas, Vibrio, and Yersinia. Dunia Jade [facility] MICROBIOLOGY - GENERAL ORDE RABLES Final Result [facility] CLIA # [id number] [address] [address] * (ABNORMAL) URINALYSIS MICROSCOPY ONLY (02/17/2025 11:32 AM EXHIBIT PREPARATOR) WBC UA 0-2 0 - 2 /hpf 02/17/2025 12:00 PM [facility] RBC UA 0-2 0 - 2 /hpf 02/17/2025 12:00 PM [facility] BACTERIA UA 1+(A) Negative /hpf 02/17/2025 12:00 PM [facility] EPITHELIAL CELLS, URINE >25(A) 0 - 5 /hpf 02/17/2025 12:00 PM [facility] Comment:Specimen not suitabl e for culture COMMENT, URINE 2+ Mucus 02/17/2025 12:00 PM [facility] Urine URINE SPECIMEN OBTAINED BY CLEAN CATCH PROCEDURE / Unknown 02/17/2025 11:32 AM EXHIBIT PREPARATOR 02/17/2025 11:42 AM EXHIBIT PREPARATOR Dunia Jade [facility] URINE ORDERABLES Final Resu lt [facility] CLIA # [id number] [address] [place] [id number] * (ABNORMAL) URINALYSIS WITH REFLEX MICROSCOPIC (02/17/2025 11:32 AM EXHIBIT PREPARATOR) COLOR UA Yellow Pale to Dark Yellow 02/17/2025 12:00 PM EXHIBIT PREPARATOR [facility] CLARITY UA Cloudy(A) Clear 02/17/2025 12:00 PM [facility] SPECIFIC GRAVITY UA 1.025 1.003 - 1.035 02/17/2025 12:00 PM [facility] PH UA 5.5 5.0 - 8.0 02/17/2025 12:00 PM [facility] [facility] LEUKOCYTE ESTERASE UA Negative Negative 02/17/2025 12:00 PM [facility] NITRITE UA Negative Negative 02/17/2025 12:00 PM [facility] PROTEIN UA Negative Negative 02/17/2025 12:00 PM [facility] GLUCOSE UA Negative Negative 02/17/2025 12:00 PM [facility] KETONES UA Negative Negative 02/17/2025 12:00 PM [facility] UROBILINOGEN UA 0.2 <2.0 mg/dL 12:00 PM [facility] BILIRUBIN UA Negative Negative 02/17/2025 12:00 PM [facility] BLOOD UA Negative Negative 02/17/2025 12:00 PM [facility] Urine URINE SPECIMEN OBTAINED BY CLEAN CATCH PROCEDURE / Unknown 02/17/2025 11:32 AM EXHIBIT PREPARATOR 02/17/2025 11:42 AM EXHIBIT PREPARATOR Dunia Jade [facility] URINE ORDERABLES Final Resu lt [facility] # [id number] [address] [place] [id number] * LACTIC ACID (02/17/2025 10:30 AM EXHIBIT PREPARATOR) LACTIC ACID 1.0 <=2.0 mmol/L 02/17/2025 11:29 AM EXHIBIT PREPARATOR [facility] Blood BLOOD SPECIMEN / Unknown Venipuncture / Unknown 02/17/2025 10:30 AM EXHIBIT PREPARATOR 02/17/2025 10:52 AM EXHIBIT PREPARATOR us Dunia Jade [facility] CHEMISTRY ORDERABLES Final Result Performing Organization Address City/[facility]/ZIP Co de Phone Number [facility] CLIA # [id number] [address] [place] [address] * TSH (02/17/2025 10:30 AM EXHIBIT PREPARATOR) TSH 1.03 0.27 - 4.20 uIU/mL 02/17/2025 11:57 AM EXHIBIT PREPARATOR [facility] Blood Venipuncture / Unknown 02/17/2025 10:30 AM EXHIBIT PREPARATOR 02/17/2025 10:48 AM EXHIBIT PREPARATOR [facility] CHEMISTRY ORDERABLES Final Result Performing Organization Address [facility] Co de Phone Number [facility] CLIA # [id number] [address] [place] [address] * LIPASE (02/17/2025 10:30 AM EXHIBIT PREPARATOR) LIPASE 49 13 - 60 U/L 02/17/2025 11:57 AM EXHIBIT PREPARATOR [facility] Blood Venipuncture / Unknown 02/17/2025 10:30 AM EXHIBIT PREPARATOR 02/17/2025 10:48 AM EXHIBIT PREPARATOR [facility] CHEMISTRY ORDERABLES Final Result Performing Organization Address City/[facility]/ZIP Co de Phone Number [facility] CLIA # [id number] [address] [place] [address] * (ABNORMAL) COMPREHENSIVE METABOLIC PANEL (02/17/2025 10:30 AM EXHIBIT PREPARATOR) SODIUM 138 136 - 145 mmol/L 02/17/2025 11:34 AM [facility] POTASSIUM 4.4 3.5 - 5.1 mmol/L 02/17/2025 11:34 AM [facility] CHLORIDE 105 98 - 107 mmol/L 02/17/2025 11:34 AM [facility] CO2 22 22 - 29 mmol/L 02/17/2025 11:34 AM [facility] CALCIUM 9.6 8.6 - 10.0 mg/dL 02/17/2025 11:34 AM [facility] BUN 9 6 - 20 mg/dL 02/17/2025 11:34 AM [facility] CREATININE 0.97(H) 0.51 - 0.95 mg/dL 02/17/2025 11:34 AM [facility] GLUCOSE 100(H) 74 - 99 mg/dL 02/17/2025 11:34 AM [facility] TOTAL PROTEIN 7.5 6.6 - 8.7 g/dL 02/17/2025 11:34 AM [facility] ALBUMIN 4.4 3.5 - 5.2 g/dL 02/17/2025 11:34 AM [facility] BILIRUBIN TOTAL 0.3 0.0 - 1.2 mg/dL 02/17/2025 11:34 AM [facility] ALKALINE PHOSPHATASE 92 35 - 104 U/L 02/17/2025 11:34 AM [facility] AST 18 0 - 35 U/L 02/17/2025 11:34 AM [facility] ALT 28 0 - 35 U/L 02/17/2025 11:34 AM [facility] GFR >60 >=60 mL/min/1.7 3 sq meter 02/17/2025 11:34 AM [facility] Comment:eGFR calculated with 2020 CKD-EPI equation. Vegetarian diet, extremely high or low muscle mass, and may affect results. Cystatin C with Glomerular Filtration Rate is a suitable alternative for these patients. ANION GAP 11 5 - 20 mmol/L 02/17/2025 11:34 AM [facility] Blood Venipuncture / Unknown 02/17/2025 10:30 AM EXHIBIT PREPARATOR 02/17/2025 10:48 AM EXHIBIT PREPARATOR us Dunia SESAY CHEMISTRY ORDERABLES Final Result [facility] CLIA # [id number] [address] [place] [address] * (ABNORMAL) CBC WITH DIFFERENTIAL (02/17/2025 10:30 AM [facility]) [facility] Signature WBC 7.4 4.0 - 10.0 K/uL 02/17/2025 10:52 AM [facility] RBC 4.01 3.93 - 5.22 M/uL 02/17/2025 10:52 AM [facility] HEMOGLOBIN 12.1 11.2 - 15.7 g/dL 02/17/2025 10:52 AM [facility] HEMATOCRIT 36.5 34.1 - 44.9 % 02/17/2025 10:52 AM [facility] MCV 91.0 79.4 - 94.8 fL 02/17/2025 10:52 AM [facility] MCH 30.2 25.6 - 32.2 pg 02/17/2025 10:52 AM [facility] MCHC 33.2 32.2 - 35.5 g/dL 02/17/2025 10:52 AM [facility] RDW 12.7 11.0 - 14.5 % 02/17/2025 10:52 AM [facility] RDW-STDEV 41.9 36.9 - 56.9 fL 02/17/2025 10:52 AM [facility] PLATELETS 275 163 - 337 K/uL 02/17/2025 10:52 AM [facility] MPV 9.6(L) 10.0 - 14.8 fL 02/17/2025 10:52 AM [facility] NEUTROPHILS 58 34 - 71 % 02/17/2025 10:52 AM [facility] LYMPHOCYTES 34 19 - 52 % 02/17/2025 10:52 AM [facility] MONOCYTES 7 5 - 13 % 02/17/2025 10:52 AM [facility] EOSINOPHILS 1 1 - 6 % 02/17/2025 10:52 AM [facility] BASOPHILS 1 0 - 1 % 02/17/2025 10:52 AM [facility] IMMATURE GRANULOCYTES 0 % 02/17/2025 10:52 AM [facility] NEUTROPHIL ABSOLUTE 4.33 1.56 - 6.13 K/uL 02/17/2025 10:52 AM [facility] LYMPHOCYTE ABSOLUTE 2.50 1.20 - 3.40 K/uL 02/17/2025 10:52 AM [facility] MONOCYTE ABSOLUTE 0.48(H) 0.24 - 0.36 K/uL 02/17/2025 10:52 AM [facility] EOSINOPHIL ABSOLUTE 0.06 0.04 - 0.36 K/uL 02/17/2025 10:52 AM [facility] BASOPHILS ABSOLUTE 0.04 0.01 - 0.08 K/uL 02/17/2025 10:52 AM [facility] IMMATURE GRANULOCYTES ABSOLUTE 0.03 K/uL 02/17/2025 10:52 AM [facility] Blood Venipuncture / Unknown 02/17/2025 10:30 AM EXHIBIT PREPARATOR 02/17/2025 10:48 AM EXHIBIT PREPARATOR us Dunia Jade CREDIT RISK MANAGEMENT DIRECTOR HEMATOLOGY ORDERABLES Final Result [facility] # [id number] [address] [place] [address] documented in this encounter Visit Diagnoses Diagnosis Left lower quadrant abdominal pain- Primary documented in this encounter Administered Medications Inactive Administered Medications - up to 3 most recent administrations Medication Order MAR Action Action Date Dose Rate Site iohexoL (OMNIPAQUE) 300 mg iodine/mL injection (single-use vial) 95 mL 95 mL, IV, INTRA-PROCEDURE ONCE, 1 dose, Starting on Thu02/17/25 at 1142, Until Thu02/17/25 at 1143, Routine Contrast Given 02/17/2025 11:43 AM EXHIBIT PREPARATOR 95 mL oxyCODONE (ROXICODONE) tablet 5 mg 5 mg, Oral, ONE TIME ONLY, 1 dose, On Thu02/17/25 at 1045, Routine Given 02/17/2025 10:54 AM EXHIBIT PREPARATOR 5 mg sodium chloride 0.9 % bolus solution 1,000 mL 1,000 mL, IV, ONE TIME ONLY, 1 dose, On Thu02/17/25 at 1015, at 2,000 mL/hr, Administer over 30 Minutes, Routine New Bag 02/17/2025 10:38 AM EXHIBIT PREPARATOR 1,000 mL 2000 mL/hr sodium chloride flush injection 10 mL 10 mL, IV, ONE TIME ONLY, 1 dose, On Thu02/17/25 at 1145, Routine Given 02/17/2025 11:45 AM EXHIBIT PREPARATOR 10 mL documented in this encounter Active and Recently Administered Medications Times are shown in EXHIBIT PREPARATOR. Scheduled Medication Order 02/15/2025 02/16/2025 02/17/2025 iohexoL (OMNIPAQUE) 300 mg iodine/mL injection (single-use vial) 95 mL (COMPLETED) 95 mL, IV, INTRA-PROCEDURE ONCE, 1 dose, Starting on Thu02/17/25 at 1142, Until Thu02/17/25 at 1143, Routine 1143 (Contrast Given - Provider: RT Jadyn) oxyCODONE (ROXICODONE) tablet 5 mg (COMPLETED) 5 mg, Oral, ONE TIME ONLY, 1 dose, On Thu02/17/25 at 1045, Routine 1054 (Given - Provid er: Jossie Garcia RN) sodium chloride 0.9 % bolus solution 1,000 mL (COMPLETED) 1,000 mL, IV, ONE TIME ONLY, 1 dose, On Thu02/17/25 at 1015, at 2,000 mL/hr, Administer over 30 Minutes, Routine 1038 (New Bag - Prov ider: Madhuri Rowe RN)1110 (Stopped - Provider: Madhuri Rowe RN) sodium chloride flush injection 10 mL (COMPLETED) 10 mL, IV, ONE TIME ONLY, 1 dose, On Thu02/17/25 at 1145, Routine 1145 (Given - Provid er: RT Jadyn) documented in this encounter Additional Health Concerns Active Problems Noted Date Diagnosed Date Autogenerated Problem 01/30/2025 documented as of this encounter Care Teams On Site Construction Superintendent Relationship Specialty Start Date End Date Kristina Tran DO [address] [place] [id number] PCP - General Family Practice 03/02/23 documented as of this encounter
[2025-02-21 16:37] VITALS: BP 128/85; PULSE 96; RESP 16; TEMP 37.2; O2SAT 100
--- OUTSIDE RECORDS SUMMARY | 2025-02-22 04:56 | XMS_ITS | Encounter Summary ---
Demographics Address [facility] [address] [place] [address] Mobile Phone Preferred Language Unknown Marital Status Orthodoxy Affiliation Unknown Race White Ethnic Group Not or Lati no Author Organization [facility] Address [address] [place] [address] Care Team Providers Care Etl Analyst Name Role Phone Kristina Tran DO Primary Care Provider [phone] Encounter Details Date Type Department Care Team (Latest Contact Info) Description 02/16/2025 Results Follow-Up [facility] Medicine [place] [address] [place] [address] [facility] [address] [place] [address] POC URINALYSIS DIPSTICK AUTOMATED, CBC WITH DIFFERENTIAL, COMPREHENSIVE METABOLIC PANEL Social History Tobacco Use Types Packs/Day Years [...] worry about transportation for future doctor visits, cloth picker medication, etc.? No 2024 Housing Stability [...] on file Legal Sex Female 1:40 PM DX BOARD OPERATOR Gender Identity Not on file Sexual Orientation Not on file documented as of this encounter Plan of Treatment Upcoming Encounters Date Type Department Care Team (Latest Contact Info) Description 03/09/2025 9:20 AM DX BOARD OPERATOR Office Visit [facility] [address] [place] [address] Joni Carl MD [address] [place] [address] Hortensia Armendariz FNP [address] [place] [address] 05/11/2025 9:00 AM DX BOARD OPERATOR Hospital Encounter [facility] Endoscopy [address] [place] [address] Alexandre Woodard, DO [address] [place] [address] 05/11/2025 9:00 AM DX BOARD OPERATOR - 05/11/2025 9:20 AM DX BOARD OPERATOR Surgery [facility] Endoscopy [address] [place] [address] Alexandre Woodard, DO [address] [place] [address] ESOPHAGOGASTRODUODENOSCOPY 06/05/2025 10:00 AM DX BOARD OPERATOR Office Visit [facility] Breast Surgery [address] [place] [address] Lilibeth Parker DO [address] [place] [address] 08/04/2025 11:40 AM CDT Office Visit [facility] Neurosurgery [address] [place] [address] Jessica Robert PA [address] [place] [address] 01/10/2026 9:45 AM CDT Office Visit [facility] [address] [place] [address] Mauricio Chi MD [address] [place] [address] Scheduled Procedures Name Priority Associated Diagnoses Date/Ti me ESOPHAGOGASTRODUODENOSCOPY Nausea; Oropharyngeal dysphagia; Chronic hoarseness; Bloody stools 05/11/2025 9:00 AM DX BOARD OPERATOR COLONOSCOPY Nausea; Oropharyngeal dysphagia; Chronic hoarseness; Bloody stools 05/11/2025 9:00 AM DX BOARD OPERATOR documented as of this encounter Goals Goal Patient Goal Type Associated Problems Recent Progress Patient-Stated? Author Autogenera chay Goal Care Plan Autogenerated Problem No Lashawn Geiger RN documented as of this encounter Visit Diagnoses Not on filedocumented in this encounter Additional Health Concerns Active Problems Noted Date Diagnosed Date Autogenerated Problem 01/30/2025 documented as of this encounter Care Teams Etl Analyst Relationship Specialty Start Date End Date Kristina Tran DO [address] [place] [phone] PCP - General Family Practice 03/02/23 documented as of this encounter
--- OUTSIDE RECORDS SUMMARY | 2025-02-22 04:56 | XMS_ITS | Encounter Summary ---
Demographics Address [facility] [address] [address] [place] [address] Mobile Phone Home Phone Preferred Language Austrian Marital Status Quaker Affiliation Unknown Race White Ethnic Group Not or Lati no Author Organization [facility] Address [address] [place] [address] Care Team Providers Care Level Vial Inspector And Tester Name Role Phone Julian Raphael DO Primary Care Provider Encounter Details Date Type Department Care Team (Latest Contact Info) Description 02/19/2006 Outpatient Historical [facility] [address] [place] [phone] Latrell Rothman MD NO ADDRESS ON FILE Abdominal Pain, Epigastric (Primary Dx) Social History Tobacco Use Types Packs/Day Years Used Date Smoking Tobacco: Never Assessed Comments Unknown Sex and Gender Information Value Date Recorded Sex Assigned at Not on file Legal Sex Female 4:00 AM APPEALS REVIEWER VETERAN Gender Identity Not on file Sexual Orientation Not on file documented as of this encounter Plan of Treatment Not on file documented as of this encounter Visit Diagnoses Diagnosis Abdominal pain, epigastric- Primary documented in this encounter Care Teams Level Vial Inspector And Tester Relationship Specialty Start Date End Date Julian Raphael DO [address] [place] [address] PCP - General Museum Or Zoo Director 11/30/17 documented as of this encounter
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
--- OUTSIDE RECORDS SUMMARY | 2025-02-22 04:56 | XMS_ITS | Encounter Summary ---
Demographics Address [facility] [address] [place] [address] Mobile Phone Preferred Language Unknown Marital Status Baptist Affiliation Unknown Race White Ethnic Group Not or Lati no Author Organization [facility] Address [address] [place] [address] Care Team Providers Care Bond Trader Name Role Phone Kristina Tran DO Primary Care Provider [phone] Reason for Visit * Reason Onset Date Comments Needs Appointment 01/31/2025 Encounter Details Date Type Department Care Team (Late st Contact Info) Description 01/31/2025 Telephone [facility] [address] [place] [address] [facility] [address] [place] [address] Needs Appointment Social History Tobacco Use Types Packs/Day Years [...] worry about transportation for future doctor visits, picker operator medication, etc.? No 2024 Housing Stability Answer [...] on file Legal Sex Female 1:40 PM RETAIL SALES PROFESSIONAL Gender Identity Not on file Sexual Orientation Not on file documented as of this encounter Miscellaneous Notes * Telephone Encounter - Jesus Alberto Gutierrez - 01/31/2025 8:33 AM CDT [facility] Call Center Communications Hortensia armendariz (Provider) MESSAGE Calling to r/s the apt for in the morning Cardiology Mental Health Orderly: Jesus Alberto documented in this encounter Plan of Treatment Upcoming Encounters Date Type Department Care Team (Latest Contact Info) Description 03/09/2025 9:20 AM RETAIL SALES PROFESSIONAL Office Visit [facility] [address] [place] [address] Joni Carl MD [address] [place] [address] Hortensia Armendariz FNP [address] [place] [address] 05/11/2025 9:00 AM RETAIL SALES PROFESSIONAL Hospital Encounter [facility] Endoscopy [address] [place] [address] Alexandre Woodard D, DO [address] [place] [address] 05/11/2025 9:00 AM RETAIL SALES PROFESSIONAL - 05/11/2025 9:20 AM RETAIL SALES PROFESSIONAL Surgery [facility] Endoscopy [address] [place] [address] Alexandre Woodard, DO [address] [place] [address] ESOPHAGOGASTRODUODENOSCOPY 06/05/2025 10:00 AM RETAIL SALES PROFESSIONAL Office Visit [facility] Breast Surgery [address] [place] [address] Devin Parkerenzraiza Reis, DO [address] [place] [address] 08/04/2025 11:40 AM CDT Office Visit [facility] Neurosurgery [address] [place] [address] Jessica Robert, PA [address] [place] [address] 01/10/2026 9:45 AM CDT Office Visit [facility] Endocrinology [facility] [address] [place] [address] Mauricio Chi MD [address] [place] [address] Scheduled Procedures Name Priority Associated Diagnoses Date/Ti me ESOPHAGOGASTRODUODENOSCOPY Nausea; Oropharyngeal dysphagia; Chronic hoarseness; Bloody stools 05/11/2025 9:00 AM RETAIL SALES PROFESSIONAL COLONOSCOPY Nausea; Oropharyngeal dysphagia; Chronic hoarseness; Bloody stools 05/11/2025 9:00 AM RETAIL SALES PROFESSIONAL documented as of this encounter Goals Goal Patient Goal Type Associated Problems Recent Progress Patient-Stated? Author Autogenera chay Goal Care Plan Autogenerated Problem No Lashawn Geiger RN documented as of this encounter Visit Diagnoses Not on filedocumented in this encounter Additional Health Concerns Active Problems Noted Date Diagnosed Date Autogenerated Problem 01/30/2025 documented as of this encounter Care Teams Bond Trader Relationship Specialty Start Date End Date Chelsea, Kristina L, DO [address] [place] [address] PCP - General Family Practice 03/02/23 documented as of this encounter
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
--- OUTSIDE RECORDS SUMMARY | 2025-02-22 04:57 | XMS_ITS | Encounter Summary ---
Author Organization [facility] Address [address] [place] [address] Care Team Providers Care Commercial Account Executive Name Role Phone Julian Raphael DO Primary Care Provider [phone] Encounter Details Date Type Department Care Team (Latest Contact Info) Description 05/22/2005 Outpatient Historical [facility] [address] [place] [address] Ryan Michael, OPERATOR RECEPTIONIST [address] [place], [place] [address] UNSPECIFIED VIRAL INFECTION (Primary Dx) Social History Tobacco Use Types Packs/Day Years Used Date Smoking Tobacco: Never Assessed Comments Unknown Sex and Gender Information Value Date Recorded Sex Assigned at Not on file Legal Sex Female 4:00 AM PERFECT BINDER SETTER Gender Identity Not on file Sexual Orientation Not on file documented as of this encounter Plan of Treatment Not on file documented as of this encounter Visit Diagnoses Diagnosis Unspecified viral infection, in conditions classified elsewhere and of unspecified site- Primary documented in this encounter Care Teams Commercial Account Executive Relationship Specialty Start Date End Date Julian Raphael DO [address] [place] [phone] PCP - General Cloth Weigher 11/30/17 documented as of this encounter
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
--- OUTSIDE RECORDS SUMMARY | 2025-02-22 04:57 | XMS_ITS | Encounter Summary ---
Demographics Address [address] [place] [address] Mobile Phone Preferred Language Unknown Marital Status Holiness Affiliation Unknown Race White Ethnic Group Not or Lati no Author Organization [facility] Address [address] [place] [address] Care Team Providers Care Pipe Line Maintenance Supervisor Name Role Phone Kristina Tran DO Primary Care Provider [phone] Encounter Details Date Type Department Care Team (Late st Contact Info) Description 02/21/2025 External Device Data [place] ABSTRACTION Provider, Abstract NO ADDRESS ON FILE Social History Tobacco Use Types Packs/Day Years [...] worry about transportation for future doctor visits, berry picker machine operator medication, etc.? No 2024 Housing Stability [...] on file Legal Sex Female 1:40 PM COPY TECHNICIAN Gender Identity Not on file Sexual Orientation Not on file documented as of this encounter Plan of Treatment Upcoming Encounters Date Type Department Care Team (Latest Contact Info) Description 03/09/2025 9:20 AM COPY TECHNICIAN Office [facility] [address] [place] [address] Joni Carl MD [address] [place] [address] Hortensia Armendariz FNP [address] [place] [address] 05/11/2025 9:00 AM COPY TECHNICIAN Hospital Encounter [facility] [address] [place] [address] Alexandre Woodard, DO [address] [place] [address] 05/11/2025 9:00 AM COPY TECHNICIAN - 05/11/2025 9:20 AM COPY TECHNICIAN Surgery [facility] [address] [place] [address] Alexandre Woodard, DO [address] [place] [address] ESOPHAGOGASTRODUODENOSCOPY 06/05/2025 10:00 AM COPY TECHNICIAN Office Visit [facility] [address] [place] [address] Lilibeth Parker, DO [address] [place] [address] 08/04/2025 11:40 AM CDT Office Visit [facility] Neuro[facility] [address] [place] [address] [place] [address] Jessica Robert PA [address] [place] [address] 01/10/2026 9:45 AM CDT [facility] [address] [place] [address] Mauricio Chi MD [address] [place] [address] Scheduled Procedures Name Priority Associated Diagnoses Date/Ti me ESOPHAGOGASTRODUODENOSCOPY Nausea; Oropharyngeal dysphagia; Chronic hoarseness; Bloody stools 05/11/2025 9:00 AM COPY TECHNICIAN COLONOSCOPY Nausea; Oropharyngeal dysphagia; Chronic hoarseness; Bloody stools 05/11/2025 9:00 AM COPY TECHNICIAN documented as of this encounter Goals Goal Patient Goal Type Associated Problems Recent Progress Patient-Stated? Author Autogenera chay Goal Care Plan Autogenerated Problem No Lashawn Geiger RN documented as of this encounter Visit Diagnoses Not on filedocumented in this encounter Additional Health Concerns Active Problems Noted Date Diagnosed Date Autogenerated Problem 01/30/2025 documented as of this encounter Care Teams Pipe Line Maintenance Supervisor Relationship Specialty Start Date End Date Kristina Tran DO [address] [place] [address] PCP - General Family Practice 03/02/23 documented as of this encounter
--- OUTSIDE RECORDS SUMMARY | 2025-02-22 04:57 | XMS_ITS | Encounter Summary ---
Demographics Address [address] [address] [address] [place] [address] Mobile Phone Home Phone Preferred Language Swedish Marital Status Mosque Affiliation Unknown Race White Ethnic Group Not or Lati no Author Organization [facility] Address [address] [place] [address] Care Team Providers Care Grass Farm Laborer Name Role Phone Julian Raphael DO Primary Care Provider [phone] Encounter Details Date Type Department Care Team (Latest Contact Info) Description 02/17/2006 Outpatient Historical [facility] [address] [place] [address] Latrell Rothman MD NO ADDRESS ON FILE Urinary Tract Infection, Site not Specified (Primary Dx) Social History Tobacco Use Types Packs/Day Years Used Date Smoking Tobacco: Never Assessed Comments Unknown Sex and Gender Information Value Date Recorded Sex Assigned at Not on file Legal Sex Female 4:00 AM BOBCAT DRIVER/LABOR Gender Identity Not on file Sexual Orientation Not on file documented as of this encounter Plan of Treatment Not on file documented as of this encounter Visit Diagnoses Diagnosis Urinary tract infection, site not specified- Primary documented in this encounter Care Teams Grass Farm Laborer Relationship Specialty Start Date End Date Julian Raphael DO [address] [place] [address] PCP - General Fixing Carpenter 11/30/17 documented as of this encounter
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
--- OUTSIDE RECORDS SUMMARY | 2025-02-22 04:57 | XMS_ITS | Encounter Summary ---
Demographics Address [facility] [address] [address] [place] [address] Mobile Phone Home Phone Preferred Language Afghan Marital Status Mormon Affiliation Unknown Race White Ethnic Group Not or Lati no Author Organization [facility] Address [address] [place] [address] Care Team Providers Care Marker Hand Name Role Phone Julian Raphael DO Primary Care Provider [phone] Encounter Details Date Type Department Care Team (Latest Contact Info) Description 04/18/[address] [facility] [address] [place] [address] Ryan Michael, ENERGY EFFICIENCY SPECIALIST [address] [place], [place] [address] FEM PELV INFLAM DIS NOS (Primary Dx) Social History Tobacco Use Types Packs/Day Years Used Date Smoking Tobacco: Never Assessed Comments Unknown Sex and Gender Information Value Date Recorded Sex Assigned at Not on file Legal Sex Female 4:00 AM TIRE SHOP MECHANIC Gender Identity Not on file Sexual Orientation Not on file documented as of this encounter Plan of Treatment Not on file documented as of this encounter Procedures Procedure Name Priority Date/Time Associated Diagnosis Comments ACUTE HEPATITIS PANEL Routine 04/18/2005 9:47 AM TIRE SHOP MECHANIC documented in this encounter Results * ACUTE HEPATITIS PANEL (04/18/2005 9:47 AM TIRE SHOP MECHANIC) HEPATITIS B SURFACE AG Negative Negative INTERFACE SYSTEM HEPATITIS B CORE IGM Negative Negative INTERFACE SYSTEM HEPATITIS A IGM Negative Negative INTE RFACE SYSTEM HEPATITIS C AB Negative Negative INTER FACE SYSTEM Comment: Performed by E.I.A. methodology. If positive, CDC guidelines recommend confirmation with supplemental assay (e.g. RIBA.) The specimen will be retained for 7 days. Please contact the Immunology Laboratory if a confirmation by RIBA is desired. 04/18/2005 9:47 AM TIRE SHOP MECHANIC us Historical Provider CHEMISTRY ORDERABLES Final R esult INTERFACE SYSTEM Refer to clinic/hospital department documented in this encounter Visit Diagnoses Diagnosis Unspecified inflammatory disease of female pelvic organs and tissues- Primary documented in this encounter Care Teams Marker Hand Relationship Specialty Start Date End Date Julian Raphael, [address] [place] [address] PCP - General Hand Bender 11/30/17 documented as of this encounter
--- OUTSIDE RECORDS SUMMARY | 2025-02-22 04:57 | XMS_ITS | Clinical Summary ---
Author Organization [facility] Address [address] [place] [address] Phone Care Team Providers Care Clinical Project Manager Name Role Phone Donavon uJlian Oglesby DO Primary Care Provider [phone] Allergies Active Allergy Reactions Criticality Noted Date Comments Tramadol Unknown 01/25/2014 Told not to take with her meningium, can cause seizures Medications ondansetron (ZOFRAN ODT) 4 mg Tablet, Rapid Dissolve Take 4 mg by mouth every 8 hours as needed for Nausea/Emesis Dissolve tablet on top of tongue, then swallow with saliva. . Active HYDROcodone-duane taminophen (NORCO) 10-325 mg Tablet Take 1 Tablet by mouth every 4 hours as needed for Pain, Moderate. Active tiZANidine (ZANAFLEX) 4 mg Tablet Take 4 mg by mouth every 6 hours as needed for Spasm. Active raNITIdine (ZANTAC) 150 mg tablet Take 1 Tablet (150 mg) by mouth 2 times daily. 60 Tablet 11/30/2017 Active omeprazole (PriLOSEC) 40 mg Capsule, Delayed Release(E.C.) Take 1 Capsule (40 mg) by mouth daily. 30 Capsule 11/30/2017 Active Active Problems Problem Noted Date Diagnosed Date Meningioma 08/05/2017 Chronic daily headache 08/05/2017 Osteoarthritis of spine with radiculopathy 08/05 Headache 12/30/2012 Family History Medical History Relation Name Comments Thyroid Disease Mother Diabetes Other grandmother Relation Name Status Comments Mother Other Social History Tobacco Use Types Packs/Day Years Used Date Smoking Tobacco: Never Smokeless Tobacco: Never Tobacco Cessation:Counseling Given: No Alcohol Use Standard Drinks/Week Comments Yes 0 (1 standard drink = 0.6 oz pur e alcohol) occasional Comments No Sex and Gender Information Value Date Recorded Sex Assigned at Not on file Legal Sex Female 4:00 AM RESPIRATORY CARE PROGRAM DIRECTOR Gender Identity Not on file Sexual Orientation Not on file Occupation Industry Job Start Date Job End Date Not on file Not on file Not on file Not on file Last Filed Vital Signs Vital Sign Reading Time Taken Comments Blood Pressure 118/74 11/30/2017 7:06 PM CDT Pulse 74 08/05/2017 1:19 PM CDT Temperature 36.6 C (97.9 F) 11/30/2017 7:06 PM CDT Respiratory Rate 18 11/30/2017 7:06 PM CDT Oxygen Saturation 99% 11/30/2017 7:06 PM CDT Inhaled Oxygen Concentration - - Weight 82.6 kg (182 lb) 11/30/2017 5:40 PM CDT Height 160 cm (5' 3 ) 08/05/2017 1:19 PM CDT Body Mass Index 32.24 08/05/2017 1:19 PM CDT Plan of Treatment Health Maintenance Due Date Last Done Comments DTAP/TDAP/TD VACCINES (1 - Tdap) 1994 HEPATITIS B VACCINES (1 of 3 - 19+ 3-dose series) 08/1993 BREAST CANCER SCREENING 2015 COLORECTAL SCREENING 01/09/2020 Colorectal Cancer Screening 01/09/2020 FIT-DNA Q 3 years 01/09/2020 FIT/FOBT Q 1 year 01/09/2020 Flex Sig/CT Colonography Q 5 years 01/09/2020 INFLUENZA VACCINE (#1) 2024 ZOSTER VACCINE (1 of 2) 2025 Insurance [address] [place] [address] MEDICAID [place] Advance Directives For more information, please contact: [phone] * Full Code (Latest Code Status on File) Date Activated Date Inactivated Comments 01/26/2017 3:30 PM 01/26/2017 7:25 PM Care Teams Clinical Project Manager Relationship Specialty Start Date End Date Julian Raphael DO [address] [place] [phone] PCP - General Machine Finisher 11/30/17
--- OUTSIDE RECORDS SUMMARY | 2025-02-22 04:57 | XMS_ITS | Encounter Summary ---
Author Organization [facility] Address [address] [place] [address] Care Team Providers Care Instructor Watch Assembly Name Role Phone Julian Raphael DO Primary Care Provider [phone] Encounter Details Date Type Department Care Team (Latest Contact Info) Description 04/30/2005 Outpatient Historical [facility] [address] [place] [address] Ryan Michael, BUTTON MAKER [address] [place] [address] DERMATOPHYTOSIS OF FOOT (Primary Dx) Social History Tobacco Use Types Packs/Day Years Used Date Smoking Tobacco: Never Assessed Comments Unknown Sex and Gender Information Value Date Recorded Sex Assigned at Not on file Legal Sex Female 4:00 AM REPAIR CAMERAMAN Gender Identity Not on file Sexual Orientation Not on file documented as of this encounter Plan of Treatment Not on file documented as of this encounter Visit Diagnoses Diagnosis Dermatophytosis of foot- Primary documented in this encounter Care Teams Instructor Watch Assembly Relationship Specialty Start Date End Date Julian Raphael DO [address] [place] [address] PCP - General Chlorinator 11/30/17 documented as of this encounter
--- OUTSIDE RECORDS SUMMARY | 2025-02-22 04:57 | XMS_ITS | Encounter Summary ---
Demographics Address [address] [facility] [address] [place] [address] Mobile Phone Preferred Language Unknown Marital Status Holiness Affiliation Unknown Race White Ethnic Group Not or Lati no Author Organization [facility] Address [address] [place] [address] Care Team Providers Care Vascular Surgeon Name Role Phone Kristina Tran DO Primary Care Provider [phone] Encounter Details Date Type Department Care Team [...] worry about transportation for future doctor visits, case picker medication, etc.? No 2024 Housing Stability [...] on file Legal Sex Female 1:40 PM FILM OR VIDEOTAPE EDITOR Gender Identity Not on file Sexual Orientation Not on file documented as of this encounter Plan of Treatment Upcoming Encounters Date Type Department Care Team (Latest Contact Info) Description 03/09/2025 9:20 AM FILM OR VIDEOTAPE EDITOR Office Visit [facility] [address] [place] [address] Joni Carl MD [address] [place] [address] Hortensia Armendariz FNP [address] [place] [address] 05/11/2025 9:00 AM FILM OR VIDEOTAPE EDITOR Hospital Encounter [facility] [address] [place] [address] Alexandre Woodard, DO [address] [place] [address] 05/11/2025 9:00 AM FILM OR VIDEOTAPE EDITOR - 05/11/2025 9:20 AM FILM OR VIDEOTAPE EDITOR Surgery [facility] [address] [place] [address] Alexandre Woodard, DO [address] [place] [address] ESOPHAGOGASTRODUODENOSCOPY 06/05/2025 10:00 AM FILM OR VIDEOTAPE EDITOR Office Visit [facility] Breast [facility] [address] [place] [address] Lilibeth Parker, DO [address] [place] [address] 08/04/2025 11:40 AM CDT Office Visit [facility] Neurosurgery [address] [place] [address] Jessica Robert PA [address] [place] [address] 01/10/2026 9:45 AM CDT [facility] [address] [place] [address] Mauricio Chi MD [address] [place] [address] Scheduled Procedures Name Priority Associated Diagnoses Date/Ti me ESOPHAGOGASTRODUODENOSCOPY Nausea; Oropharyngeal dysphagia; Chronic hoarseness; Bloody stools 05/11/2025 9:00 AM FILM OR VIDEOTAPE EDITOR COLONOSCOPY Nausea; Oropharyngeal dysphagia; Chronic hoarseness; Bloody stools 05/11/2025 9:00 AM FILM OR VIDEOTAPE EDITOR documented as of this encounter Goals Goal Patient Goal Type Associated Problems Recent Progress Patient-Stated? Author Autogenera chay Goal Care Plan Autogenerated Problem No Lashawn Geiger RN documented as of this encounter Visit Diagnoses Not on filedocumented in this encounter Additional Health Concerns Active Problems Noted Date Diagnosed Date Autogenerated Problem 01/30/2025 documented as of this encounter Care Teams Vascular Surgeon Relationship Specialty Start Date End Date Kristina Tran DO [address] [place] [address] PCP - General Family Practice 03/02/23 documented as of this encounter
--- OUTSIDE RECORDS SUMMARY | 2025-02-22 04:58 | XMS_ITS | Encounter Summary ---
Demographics Address [address] [facility] [place] [address] Mobile Phone Preferred Language Unknown Marital Status Nondenominational Affiliation Unknown Race White Ethnic Group Not or Lati no Author Organization [facility] Address [address] [place] [address] Care Team Providers Care Waiter/Waitress Room Service Name Role Phone Kristina Tran DO Primary Care Provider [phone] Encounter Details Date Type Department Care Team [...] worry about transportation for future doctor visits, steel pickler medication, etc.? No 2024 Housing Stability Answer [...] on file Legal Sex Female 1:40 PM MOOSE HUNTER Gender Identity Not on file Sexual Orientation Not on file documented as of this encounter Plan of Treatment Upcoming Encounters Date Type Department Care Team (Latest Contact Info) Description 03/09/2025 9:20 AM MOOSE HUNTER Office Visit [facility] [address] [place] [phone] Joni Carl MD [address] [place] [phone] Hortensia Armendariz FNP [address] [place] [phone] 05/11/2025 9:00 AM MOOSE HUNTER Hospital Encounter [facility] Endoscopy [address] [place] [address] Alexandre Woodard, DO [address] [place] [phone] 05/11/2025 9:00 AM MOOSE HUNTER - 05/11/2025 9:20 AM MOOSE HUNTER Surgery [facility] Endoscopy [address] [place] [address] Alexandre Woodard, DO [address] [place] [phone] ESOPHAGOGASTRODUODENOSCOPY 06/05/2025 10:00 AM MOOSE HUNTER Office Visit [facility] Breast Surgery [address] [place] [address] Lilibeth Parker, DO [address] [place] [address] 08/04/2025 11:40 AM CDT Office Visit [facility] Neurosurgery [address] [place] [address] Jessica Robert PA [address] [place] [address] 01/10/2026 9:45 AM CDT Office Visit [facility] [address] [place] [address] Mauricio Chi MD [address] [place] [address] Scheduled Procedures Name Priority Associated Diagnoses Date/Ti me ESOPHAGOGASTRODUODENOSCOPY Nausea; Oropharyngeal dysphagia; Chronic hoarseness; Bloody stools 05/11/2025 9:00 AM MOOSE HUNTER COLONOSCOPY Nausea; Oropharyngeal dysphagia; Chronic hoarseness; Bloody stools 05/11/2025 9:00 AM MOOSE HUNTER documented as of this encounter Goals Goal Patient Goal Type Associated Problems Recent Progress Patient-Stated? Author Autogenera chay Goal Care Plan Autogenerated Problem No Lashawn Geiger RN documented as of this encounter Visit Diagnoses Not on filedocumented in this encounter Additional Health Concerns Active Problems Noted Date Diagnosed Date Autogenerated Problem 01/30/2025 documented as of this encounter Care Teams Waiter/Waitress Room Service Relationship Specialty Start Date End Date Kristina Tran DO [address] [place] [phone] PCP - General Family Practice 03/02/23 documented as of this encounter
--- OUTSIDE RECORDS SUMMARY | 2025-02-22 04:59 | XMS_ITS | Clinical Summary ---
Demographics Address [address] [facility] [facility] [place] [address] Mobile Phone Preferred Language Unknown Marital Status Sabianist Affiliation Unknown Race White Ethnic Group Not or Lati no Author Organization [employer] Address [address] [facility] Attn: Epic Prelude ADT [place] [phone] Care Team Providers Care Engineering Illustrator Name Role Phone Kristina Tran Primary Care Provider Allergies Active Allergy Reactions Criticality Noted Date Comments Flu Vaccine 2010(6-35 Mos)(Pf) Other (See Comments) High 01/11/2024 Patient stated this vaccine shuts her lungs down Tramadol Unknown 01/25/2014 Told not to take with her meningium, can cause seizures Venlafaxine Other (See Comments) Low 06/18/2018 Suicidality Medications naloxone (NARCAN) 4 mg/spray [place], Non-Aerosol EMERGENCY USE ONLY: Administer 1 spray (4 mg) in one nostril one time. May repeat in alternating nostrils every 2-3 min until responsive or EMS arrives. 2 Each 3 02/01/20 24 Active Additional Information Patient not taking.Reported on 02/15/2025 sucralfate (CARAFATE) 1 gram tabletIndications: Gastritis, presence of bleeding unspecified, unspecified chronicity, unspecified gastritis type Take 1 Tablet (1 Gram) by mouth 4 times daily before meals and at bedtime. 120 Tablet 3 02/23/20 24 Active oxyCODONE (ROXICODONE) 10 mg tablet TAKE ONE TABLET BY MOUTH EVERY SIX hours NEEDED. Not TO exceed FOUR PER DAY. 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 120 Capsule 1 01/19/20 25 Active acetaminophen (TYLENOL) 325 mg tabletIndications: Diverticulitis Take 325 mg by mouth every 4 hours as needed for Pain. Active PEG-Electrolyte Soln (NULYTELY) 420 g Recon Soln Take 4,000 mL by mouth one time only for 1 dose. 4000 mL 01/24/20 25 025 amoxicillin-clavul anate (AUGMENTIN) 875-125 mg tabletIndications: Diverticulitis Take 1 Tablet by mouth every 12 hours for 7 days. 14 Tablet 02/16/20 25 025 Discontinu ed(Alterna te therapy prescribed ) ciprofloxacin HCl (CIPRO) 250 mg tablet Take 1 Tablet (250 mg) by mouth 2 times daily for 3 days. 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 Aphonia 10/12/2024 Nausea 07/12/2024 Dysphonia 03/10/2024 Gastritis 02/23/2024 LPRD (laryngopharyngeal reflux disease) 02/23/20 24 Oropharyngeal dysphagia 02/23/2024 Chronic throat pain 01/31/2024 Change in voice 01/31/2024 Chronic generalized abdominal pain 01/26/2024 Enlarged thyroid 01/26/2024 Swelling of left side of face 06/02/2023 Abnormal uterine bleeding (AUB) 03/14/2020 Overview (03/02/2023): Patient has an unusual history of self-reported vaginal, rectal, pulmonary, and upper GI bleeding with + exam findings on recent IM note (vaginal and rectal blood on exam) Patient reports resolution of all vaginal bleeding prior to visit today Reports history of being told she has cancer or an abnormal pap No exam evidence on vaginal or rectal exams of vaginal, upper, or lower GI bleeding Numerous GI visits, including EGD have been cancelled by patient Hg 12.8 on recent ED visit Plan: TVUS ordered to evaluate fibroid, uterus, EMS Pap with cotest collected Lipoma of torso 04/09/2018 Overview (03/02/2023): Last Assessment & Plan: Left breast mass resected 04/2017 with path demonstrating mature adipose CT consistent with lipoma. Chronic daily headache 08/05/2017 Meningioma 08/05/2017 Osteoarthritis of spine with radiculopathy 08/05 Headache 12/30/2012 Encounters Date Type Department Care Team Description 02/21/2025 External Device Data STL ABSTRACTION Provider, Abstract 02/21/2025 External Device Data STL ABSTRACTION Provider, Abstract 02/21/2025 External Device Data STL ABSTRACTION Provider, Abstract 02/18/2025 Results Follow-Up [facility] Emergency Medicine [address] [place] [address] Dunia Jade FNP STOOL CULTURE W/SHIGA TOXIN 02/17/2025 9:15 AM GARAGE DOOR SERVICE TECHNICIAN - 02/17/2025 1:11 PM GARAGE DOOR SERVICE TECHNICIAN Emergency [facility] Emergency Medicine [address] [place] [address] Sherrell Vazquez MD Left lower quadrant abdominal pain (Primary Dx) Discharge Disposition: Home or Self Care 02/16/2025 Results Follow-Up [facility] [address] [place] [address] Kristina Miner FNP POC URINALYSIS DIPSTICK AUTOMATED, CBC WITH DIFFERENTIAL, COMPREHENSIVE METABOLIC PANEL 02/15/2025 12:40 PM GARAGE DOOR SERVICE TECHNICIAN Office Visit [facility] [address] [place] [address] Kristina Miner FNP Diverticulitis (Primary Dx) 02/07/2025 External Device Data STL ABSTRACTION Provider, Abstract 01/31/2025 Telephone [facility] [address] [place] [phone] Hortensia Armendariz FNP Needs Appointment 01/26/2025 Telephone [facility] [address] [place] [address] Edinson, Kim Abbie, ASSISTANT MEDIA BUYER Documentation 01/25/2025 Refill [facility] [address] [place] [phone] Edinson, Kim Abbie, ASSISTANT MEDIA BUYER Chronic generalized abdominal pain 01/25/2025 Refill [facility] [address] [place] [phone] Edinson, Kim Abbie, ASSISTANT MEDIA BUYER Chronic generalized abdominal pain 01/25/2025 Refill [facility] [address] [facility] [place] [phone] Edinson, Kim Abbie, ASSISTANT MEDIA BUYER Chronic generalized abdominal pain 01/18/2025 Orders Only [facility] [address] [place] [phone] Edinson, Kim Abbie, ASSISTANT MEDIA BUYER 01/17/2025 [facility]ill [facility] 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 [place] [address] Kim Neves FNP Bloody stools (Primary Dx); Nausea; Chronic generalized abdominal pain; Change in consistency of stool; History of colonoscopy; Oropharyngeal dysphagia; Chronic hoarseness 12/20/2024 11:00 AM CDT Office Visit [facility] [address] [place] [address] Kristina Miner, SHAMA Dysphonia (Primary Dx); LPRD (laryngopharyngeal reflux disease); Lumbosacral spondylosis with radiculopathy; Meningioma (CMS/HCC); Chronic daily headache 12/16/2024 Orders Only [facility] Cancer and Hematology [place] [address] [place] [address] Daren Romero, CASEY Personal history of meningioma of the brain (Primary Dx); Family history of leukemia; Family history of stomach cancer; Family history of brain cancer; Family history of breast cancer; Family history of colon cancer requiring screening colonoscopy; Family history of melanoma 12/16/2024 Telephone [facility] [address] [place] [address] Hortensia Armendariz FNP 12/16/24 Marcello Appt Needs Rescheduled 12/15/2024 8:56 AM CDT - 12/15/2024 11:59 PM CDT Hospital Encounter [facility] [address] [facility] [address] [place] [address] Lilibeth Parker, DO Discharge Disposition: Home or Self Care 12/09/2024 Refill [facility] [address] [place] [address] Kristina Miner FNP 12/07/2024 2:30 PM CDT Office Visit [facility] Breast Surgery [address] [place] [address] Lilibeth Parker, DO Discharge from left nipple (Primary Dx); Family history of cancer; Meningioma (CMS/HCC) 12/06/2024 External Device Data STL ABSTRACTION Provider, Abstract 11/30/2024 [facility] [address] [place] [address] Kristina Miner Xavier, ASSISTANT MEDIA BUYER Acute nonintractable headache, unspecified headache type 11/25/2024 Refill [facility] [address] [place] [address] MinerRenankim Park, ASSISTANT MEDIA BUYER Acute nonintractable headache, unspecified headache type; Nausea 11/22/2024 External Device Data STL ABSTRACTION Provider, Abstract from Last 3 Months Family History Medical History Relation Name Comments Breast Cancer Maternal Grandfather Thyroid Disease Mother Diabetes Other grandmother Melanoma Neg Hx Ovarian Cancer Neg Hx Pancreatic Cancer Neg Hx Uterine or Endometrial Cance r, Not Including Cervical Neg Hx Relation Name Status Comments Maternal Aunt Alive Maternal Grandfather Mother Other Social History Tobacco Use Types Packs/Day Years Used Date Smoking Tobacco: Never Passive Smoke Exposure: Never Smokeless Tobacco: Never Tobacco Cessation:Counseling Given: Not Answered Alcohol Use Standard Drinks/Week Comments Not Currently [...] worry about transportation for future doctor visits, 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 No 2024 Housing Stability Answer [...] on file Legal Sex Female 1:40 PM GARAGE DOOR SERVICE TECHNICIAN Gender Identity Not on file Sexual Orientation Not on file Last Filed Vital Signs Vital Sign Reading Time Taken Comments Blood Pressure 136/93 02/17/2025 1:00 PM GARAGE DOOR SERVICE TECHNICIAN Pulse 73 02/17/2025 1:00 PM GARAGE DOOR SERVICE TECHNICIAN Temperature 36.9 C (98.4 F) 02/17/2025 9:20 AM GARAGE DOOR SERVICE TECHNICIAN Respiratory Rate 15 02/17/2025 1:00 PM GARAGE DOOR SERVICE TECHNICIAN Oxygen Saturation 100% 02/17/2025 1:00 PM GARAGE DOOR SERVICE TECHNICIAN Inhaled Oxygen Concentration - - Weight 80 kg (176 lb 4.8 oz) 02/17/2025 9:20 AM GARAGE DOOR SERVICE TECHNICIAN Height 160 cm (5' 3 ) 02/17/2025 9:20 AM GARAGE DOOR SERVICE TECHNICIAN Body Mass Index 31.23 02/17/2025 9:20 AM GARAGE DOOR SERVICE TECHNICIAN Plan of Treatment Upcoming Encounters Date Type Department Care Team (Latest Contact Info) Description 03/09/2025 9:20 AM GARAGE DOOR SERVICE TECHNICIAN Office Visit [facility] [address] [place] [address] Joni Carl MD [address] [place] [address] Hortensia Armendariz FNP [address] [place] [address] 05/11/2025 9:00 AM GARAGE DOOR SERVICE TECHNICIAN Hospital Encounter [facility] Endoscopy [address] [place] [address] Alexandre Woodard D, DO [address] [place] [address] 05/11/2025 9:00 AM GARAGE DOOR SERVICE TECHNICIAN - 05/11/2025 9:20 AM GARAGE DOOR SERVICE TECHNICIAN Surgery [facility] Endoscopy [address] [place] [address] Alexandre Woodard, DO [address] [place] [address] ESOPHAGOGASTRODUODENOSCOPY 06/05/2025 10:00 AM GARAGE DOOR SERVICE TECHNICIAN Office Visit [facility] Breast Surgery [address] [place] [address] Lilibeth Parker, DO [address] [place] [address] 08/04/2025 11:40 AM CDT Office Visit [facility] Neurosurgery [address] [place] [address] Jessica Robert, PA [address] [place] [address] 01/10/2026 9:45 AM CDT Office Visit [facility] [address] [place] [address] Mauricio Chi MD [address] [place] [address] Scheduled Procedures Name Priority Associated Diagnoses Date/Ti me ESOPHAGOGASTRODUODENOSCOPY Nausea; Oropharyngeal dysphagia; Chronic hoarseness; Bloody stools 05/11/2025 9:00 AM GARAGE DOOR SERVICE TECHNICIAN COLONOSCOPY Nausea; Oropharyngeal dysphagia; Chronic hoarseness; Bloody stools 05/11/2025 9:00 AM GARAGE DOOR SERVICE TECHNICIAN Health Maintenance Due Date Last Done Comments HEPATITIS B VACCINES (1 of 3 - 19+ 3-dose series) 1994 Preventative Visit-Managed Medicaid 1994 HPV/Cotest (21-29) 01/09/1996 CERVICAL CANCER SCREENING 2005 HPV/Cotest (30-65) 2005 PAP SMEAR 2005 DTAP/TDAP/TD VACCINES (1 - Tdap) 09/04/2005 09/04/19 06 Pre-Diabetes and Diabetes Screening 09/13/2017 09/13/2014 FIT-DNA Q 3 years 01/09/2020 FIT/FOBT Q 1 year 01/09/2020 Flex Sig/CT Colonography Q 5 years 01/09/2020 INFLUENZA VACCINE (#1) 2024 ZOSTER VACCINE (1 of 2) 2025 BREAST CANCER SCREENING 10/14/2025 10/15/19 25, 08/16/2020, 02/14/2019, Additional history exists COLORECTAL SCREENING 06/11/2033 06/12/2023, 06/12/19 24 Colorectal Cancer Screening 06/11/2033 Goals Goal Patient Goal Type Associated Problems Recent Progress Patient-Stated? Author Autogenera chay Goal Care Plan Autogenerated Problem No Lashawn Geiger RN Medical Devices Implanted Type Area Cultural Centre Manager Device Identifier Shelf Expiration Date Model / Serial / Lot Duragen + 3x3in Dp-103 - [id number] Implanted:Qty: 1 on 04/15/2022 by Pauline Briones MD at [facility] Graft N/A: Brain [employer] [id number] 02/03/2025 [id number] / / [id number] Hemostatic Surgicel 2x3in 1952 [id number] Implanted:Qty: 1 on 04/15/2022 by Pauline Briones MD at [facility] Hemostatic N/A: Brain [employer] 09/03/20261952 / [id number] Hemostatic Surgifoam Sz100 1973 [id number] Implanted:Qty: 1 on 04/15/2022 by Pauline Briones MD at [facility] Hemostatic N/A: Brain [employer]- [employer] [id number] 07/08/20251973 / [id number] Hemostatic Surgifoam 1gm 1977 [id number] Implanted:Qty: 1 on 04/15/2022 by Pauline Briones MD at [facility] Hemostatic N/A: Brain [employer] [id number] 08/22/20231977 / [id number] Hemostatic Surgifoam Sz100 1973 - [id number] Implanted:Qty: 1 on 04/15/2022 by Pauline Briones MD at [facility] Hemostatic N/A: Brain [employer]- [employer] [id number] 08/05/20251973 [id number] Plate Matrxneuro Bur Hl Cvr - [id number] Implanted:Qty: 1 on 04/15/2022 by Pauline Briones MD at [facility] Plate N/A: Cranial J&J- [employer]PUY SYNTHES 04.503.0 21 / / Plate Matrxneuro Bur Hl Cvr . - [id number] Implanted:Qty: 1 on 04/15/2022 by Pauline Briones MD at [facility] Plate N/A: Cranial [employer]- [employer] SYNTHES 04.503.0 21 / / Plate Matrxneuro Bur Hl Cvr - [id number] Implanted:Qty: 1 on 04/15/2022 by Pauline Briones MD at [facility] Plate N/A: Cranial J[employer]J- [employer] SY[employer]ES 04.503.0 21 / / Screw Matrixneuro Sd .104. - [id number] Implanted:Qty: 1 on 04/15/2022 by Pauline Briones MD at [facility] Screw N/A: Cranial J[employer]J- [employer] SY[employer]ES 04.503.1 04.01 / / Screw Matrixneuro Sd .104. - [id number] Implanted:Qty: 1 on 04/15/2022 by Pauline Briones MD at [facility] Screw N/A: Cranial J&J- [employer] SY[employer]ES 04.503.1 04.01 / / Screw Matrixneuro Sd .104. - [id number] Implanted:Qty: 1 on 04/15/2022 by Pauline Briones MD at [facility] Screw N/A: Cranial J&J- [employer] SYN[employer]ES 04.503.1 04.01 / / Screw Matrixneuro Sd .104.01 - [id number] Implanted:Qty: 1 on 04/15/2022 by Pauline Briones MD at [facility] Screw N/A: Cranial J&J- [employer] SYN[employer]ES 04.503.1 04.01 / / Screw Matrixneuro Sd 503.104. - [id number] Implanted:Qty: 1 on 04/15/2022 by Pauline Briones MD at [facility] Screw N/A: Cranial J&J- [employer] SYN[employer]ES 04.503.1 04.01 / / Screw Matrixneuro Sd 503.104. - [id number] Implanted:Qty: 1 on 04/15/2022 by Pauline Briones MD at [facility] Screw N/A: Cranial J&J- [employer] SYN[employer]ES .503.1 04.01 / / Screw Matrixneuro Sd .104. - [id number] Implanted:Qty: 1 on 04/15/2022 by Pauline Briones MD at [facility] Screw N/A: Cranial J&J- [employer] SYNTHES .503.1 04.01 / / Screw Matrixneuro Sd 503.104. - [id number] Implanted:Qty: 1 on 04/15/2022 by Pauline Briones MD at [facility] Screw N/A: Cranial J&J- DE[employer] SYNTHES .503.1 04.01 / / Screw Matrixneuro Sd .104. - [id number] Implanted:Qty: 1 on 04/15/2022 by Pauline Briones MD at [facility] Screw N/A: Cranial J&J- [employer] SY[employer]ES 04.503.1 04.01 / / Procedures Procedure Name Priority Date/Time Associated Diagnosis Comments CT ABDOMEN PELVIS W CONTRAST Stat 02/17/2025 11:46 AM GARAGE DOOR SERVICE TECHNICIAN STOOL CULTURE W/SHIGA TOXIN Stat 02/17/2025 11:37 AM GARAGE DOOR SERVICE TECHNICIAN URINALYSIS MICROSCOPY ONLY Stat 02/17/2025 11:32 AM GARAGE DOOR SERVICE TECHNICIAN URINALYSIS W/REFLEX MICROSCOPIC Stat 02/17/2025 11:32 AM GARAGE DOOR SERVICE TECHNICIAN LACTIC ACID Stat 02/17/2025 10:30 AM GARAGE DOOR SERVICE TECHNICIAN TSH Stat 02/17/2025 10:30 AM GARAGE DOOR SERVICE TECHNICIAN LIPASE Stat 02/17/2025 10:30 AM GARAGE DOOR SERVICE TECHNICIAN COMPREHENSIVE METABOLIC PANEL Stat 02/17/2025 10:30 AM GARAGE DOOR SERVICE TECHNICIAN CBC WITH DIFFERENTIAL Stat 02/17/2025 10:30 AM GARAGE DOOR SERVICE TECHNICIAN COMPREHENSIVE METABOLIC PANEL Routine 02/15/2025 1:09 PM GARAGE DOOR SERVICE TECHNICIAN Diverticulitis CBC WITH DIFFERENTIAL Routine 02/15/2025 1:09 PM GARAGE DOOR SERVICE TECHNICIAN Diverticulitis POC URINALYSIS DIPSTICK AUTOMATED Routine 02/15/2025 1:06 PM GARAGE DOOR SERVICE TECHNICIAN Diverticulitis TEMPUS XG CANCERNEXT AND XG+ CANCERNEXT-EXPANDED Routine 12/30/2024 11:47 PM CDT Personal history of meningioma of the brain Family history of leukemia Family history of stomach cancer Family history of brain cancer Family history of breast cancer Family history of colon cancer requiring screening colonoscopy Family history of melanoma MAMMO 3D VIRI DIAGNOSTIC BILAT W OR WO CAD Routine 10/14/2024 10:46 AM CDT Breast pain, left Discharge from breast COLONOSCOPY REPORT 06/12/2023 3: 44 PM GARAGE DOOR SERVICE TECHNICIAN HEMOGLOBIN A1C Routine 09/13/2014 9:23 AM CDT from Last 3 Months or Most Recently Relevant to Health Maintenance Results * CT ABDOMEN PELVIS W CONTRAST (02/17/2025 11:46 AM GARAGE DOOR SERVICE TECHNICIAN) Anatomical Region Laterality Modality Abdomen Computed Tomogra phy 02/17/2025 11:4 7 AM GARAGE DOOR SERVICE TECHNICIAN Impressions 02/17/2025 12:18 PM GARAGE DOOR SERVICE TECHNICIAN IMPRESSION: Diverticulosis without evidence of diverticulitis. Narrative 02/17/2025 12:18 PM GARAGE DOOR SERVICE TECHNICIAN Exam: CT ABDOMEN PELVIS W CONTRAST Date/Time [...] air. IMPRESSION: Diverticulosis without evidence of diverticulitis. Dunia Dodd [facility] CT ORDERABLES Final Resul t * STOOL CULTURE W/SHIGA TOXIN (02/17/2025 11:37 AM GARAGE DOOR SERVICE TECHNICIAN) CULTURE NORMAL VAL 02/19/2025 10:05 AM [facility] CULTURE NEGATIVE 02/19/2025 10:05 AM [facility] SHIGA TOXIN 1 Negative 02/19/2025 10:05 AM [facility] SHIGA TOXIN 2 Negative 02/19/2025 10:05 AM [facility] Stool STOOL SPECIMEN / Unknown Collection / Unknown 02/17/2025 11:37 AM GARAGE DOOR SERVICE TECHNICIAN 02/17/2025 11:43 AM GARAGE DOOR SERVICE TECHNICIAN Narrative [facility] - 02/19/2025 10:05 AM GARAGE DOOR SERVICE TECHNICIAN Stools are screened for Salmonella,Shigella,Campylobacter,Shiga toxin producing E.coli, including E.coli O157, Aeromonas,Plesiomonas, Vibrio, and Yersinia. Dunia Jade [facility] MICROBIOLOGY - GENERAL ORDJosi VILLALOBOS Final Result [facility] CLIA # [id number] [address] [place] [address] * (ABNORMAL) URINALYSIS MICROSCOPY ONLY (02/17/2025 11:32 AM GARAGE DOOR SERVICE TECHNICIAN) [facility] WBC UA 0-2 0 - 2 /hpf 02/17/2025 12:00 PM [facility] RBC UA 0-2 0 - 2 /hpf 02/17/2025 12:00 PM [facility] BACTERIA UA 1+(A) Negative /hpf 02/17/2025 12:00 PM [facility] EPITHELIAL CELLS, URINE >25(A) 0 - 5 /hpf 02/17/2025 12:00 PM [facility] Comment:Specimen not suitabl e for culture COMMENT, URINE 2+ Mucus 02/17/2025 12:00 PM [facility] Urine URINE SPECIMEN OBTAINED BY CLEAN CATCH PROCEDURE / Unknown 02/17/2025 11:32 AM GARAGE DOOR SERVICE TECHNICIAN 02/17/2025 11:42 AM GARAGE DOOR SERVICE TECHNICIAN us Dunia Jade ASSISTANT MEDIA BUYER URINE ORDERABLES Final Resu lt Performing Organization Address City/[facility]/ZIP Co de Phone Number [facility] CLIA # [id number] [address] [place] [id number] * (ABNORMAL) URINALYSIS WITH REFLEX MICROSCOPIC (02/17/2025 11:32 AM GARAGE DOOR SERVICE TECHNICIAN) COLOR UA Yellow Pale to Dark Yellow 02/17/2025 12:00 PM [facility] CLARITY UA Cloudy(A) Clear 02/17/2025 12:00 PM [facility] SPECIFIC GRAVITY UA 1.025 1.003 - 1.035 02/17/2025 12:00 PM [facility] PH UA 5.5 5.0 - 8.0 02/17/2025 12:00 PM [facility] LEUKOCYTE ESTERASE UA Negative Negative 02/17/2025 12:00 PM [facility] NITRITE UA Negative Negative 02/17/2025 12:00 PM [facility] PROTEIN UA Negative Negative 02/17/2025 12:00 PM [facility] GLUCOSE UA Negative Negative 02/17/2025 12:00 PM [facility] KETONES UA Negative Negative 02/17/2025 12:00 PM [facility] UROBILINOGEN UA 0.2 <2.0 mg/dL 12:00 PM [facility] BILIRUBIN UA Negative Negative 02/17/2025 12:00 PM [facility] BLOOD UA Negative Negative 02/17/2025 12:00 PM [facility] Urine URINE SPECIMEN OBTAINED BY CLEAN CATCH PROCEDURE / Unknown 02/17/2025 11:32 AM GARAGE DOOR SERVICE TECHNICIAN 02/17/2025 11:42 AM GARAGE DOOR SERVICE TECHNICIAN us Dunia Jade ASSISTANT MEDIA BUYER URINE ORDERABLES Final Resu lt [facility] CLIA # [id number] [address] [place] [address] * LACTIC ACID (02/17/2025 10:30 AM GARAGE DOOR SERVICE TECHNICIAN) LACTIC ACID 1.0 <=2.0 mmol/L 02/17/2025 11:29 AM [facility] Blood BLOOD SPECIMEN / Unknown Venipuncture / Unknown 02/17/2025 10:30 AM GARAGE DOOR SERVICE TECHNICIAN 02/17/2025 10:52 AM GARAGE DOOR SERVICE TECHNICIAN Dunia Jade [facility] CHEMISTRY ORDERABLES Final Result [facility] CLIA # [id number] [address] [place] [id number] * (ABNORMAL) CBC WITH DIFFERENTIAL (02/17/2025 10:30 AM GARAGE 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 WBC 7.4 4.0 - 10.0 K/uL 02/17/2025 10:52 AM [facility] RBC 4.01 3.93 - 5.22 M/uL 02/17/2025 10:52 AM [facility] HEMOGLOBIN 12.1 11.2 - 15.7 g/dL 02/17/2025 10:52 AM [facility] HEMATOCRIT 36.5 34.1 - 44.9 % 02/17/2025 10:52 AM [facility] MCV 91.0 79.4 - 94.8 fL 02/17/2025 10:52 AM [facility] MCH 30.2 25.6 - 32.2 pg 02/17/2025 10:52 AM [facility] MCHC 33.2 32.2 - 35.5 g/dL 02/17/2025 10:52 AM [facility] RDW 12.7 11.0 - 14.5 % 02/17/2025 10:52 AM [facility] RDW-STDEV 41.9 36.9 - 56.9 fL 02/17/2025 10:52 AM [facility] PLATELETS 275 163 - 337 K/uL 02/17/2025 10:52 AM [facility] MPV 9.6(L) 10.0 - 14.8 fL 02/17/2025 10:52 AM [facility] NEUTROPHILS 58 34 - 71 % 02/17/2025 10:52 AM [facility] LYMPHOCYTES 34 19 - 52 % 02/17/2025 10:52 AM [facility] MONOCYTES 7 5 - 13 % 02/17/2025 10:52 AM [facility] EOSINOPHILS 1 1 - 6 % 02/17/2025 10:52 AM [facility] BASOPHILS 1 0 - 1 % 02/17/2025 10:52 AM [facility] IMMATURE GRANULOCYTES 0 % 02/17/2025 10:52 AM [facility] NEUTROPHIL ABSOLUTE 4.33 1.56 - 6.13 K/uL 02/17/2025 10:52 AM [facility] LYMPHOCYTE ABSOLUTE 2.50 1.20 - 3.40 K/uL 02/17/2025 10:52 AM [facility] MONOCYTE ABSOLUTE 0.48(H) 0.24 - 0.36 K/uL 02/17/2025 10:52 AM [facility] EOSINOPHIL ABSOLUTE 0.06 0.04 - 0.36 K/uL 02/17/2025 10:52 AM [facility] BASOPHILS ABSOLUTE 0.04 0.01 - 0.08 K/uL 02/17/2025 10:52 AM [facility] IMMATURE GRANULOCYTES ABSOLUTE 0.03 K/uL 02/17/2025 10:52 AM [facility] Blood Venipuncture / Unknown 02/17/2025 10:30 AM GARAGE DOOR SERVICE TECHNICIAN 02/17/2025 10:48 AM GARAGE DOOR SERVICE TECHNICIAN Dunia Jade ASSISTANT MEDIA BUYER HEMATOLOGY ORDERABLES Final Result [facility] CLIA # [id number] [address] [place] [address] * TSH (02/17/2025 10:30 AM GARAGE DOOR SERVICE TECHNICIAN) TSH 1.03 0.27 - 4.20 uIU/mL 02/17/2025 11:57 AM [facility] Blood Venipuncture / Unknown 02/17/2025 10:30 AM GARAGE DOOR SERVICE TECHNICIAN 02/17/2025 10:48 AM GARAGE DOOR SERVICE TECHNICIAN [facility] CHEMISTRY ORDERABLES Final Result Performing Organization Address City/[facility]/ZIP Co de Phone Number [facility] CLIA # [id number] [address] [place] [address] * LIPASE (02/17/2025 10:30 AM GARAGE DOOR SERVICE TECHNICIAN) Pathologist [facility] LIPASE 49 13 - 60 U/L 02/17/2025 11:57 AM [facility] Blood Venipuncture / Unknown 02/17/2025 10:30 AM GARAGE DOOR SERVICE TECHNICIAN 02/17/2025 10:48 AM GARAGE DOOR SERVICE TECHNICIAN [facility] CHEMISTRY ORDERABLES Final Result Performing Organization Address City/[facility] Co de Phone Number [facility] CLIA # [id number] [address] [place] [address] * (ABNORMAL) COMPREHENSIVE METABOLIC PANEL (02/17/2025 10:30 AM GARAGE 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 Pathologist [facility] SODIUM 138 136 - 145 mmol/L 02/17/2025 11:34 AM [facility] POTASSIUM 4.4 3.5 - 5.1 mmol/L 02/17/2025 11:34 AM [facility] CHLORIDE 105 98 - 107 mmol/L 02/17/2025 11:34 AM [facility] CO2 22 22 - 29 mmol/L 02/17/2025 11:34 AM [facility] CALCIUM 9.6 8.6 - 10.0 mg/dL 02/17/2025 11:34 AM [facility] BUN 9 6 - 20 mg/dL 02/17/2025 11:34 AM [facility] CREATININE 0.97(H) 0.51 - 0.95 mg/dL 02/17/2025 11:34 AM [facility] GLUCOSE 100(H) 74 - 99 mg/dL 02/17/2025 11:34 AM [facility] TOTAL PROTEIN 7.5 6.6 - 8.7 g/dL 02/17/2025 11:34 AM [facility] ALBUMIN 4.4 3.5 - 5.2 g/dL 02/17/2025 11:34 AM [facility] BILIRUBIN TOTAL 0.3 0.0 - 1.2 mg/dL 02/17/2025 11:34 AM [facility] ALKALINE PHOSPHATASE 92 35 - 104 U/L 02/17/2025 11:34 AM [facility] AST 18 0 - 35 U/L 02/17/2025 11:34 AM [facility] ALT 28 0 - 35 U/L 02/17/2025 11:34 AM [facility] GFR >60 >=60 mL/min/1.7 3 sq meter 02/17/2025 11:34 AM [facility] Comment:eGFR calculated with 2020 CKD-EPI equation. Vegetarian diet, extremely high or low muscle mass, and may affect results. Cystatin C with Glomerular Filtration Rate is a suitable alternative for these patients. ANION GAP 11 5 - 20 mmol/L 02/17/2025 11:34 AM [facility] Blood Venipuncture / Unknown 02/17/2025 10:30 AM GARAGE DOOR SERVICE TECHNICIAN 02/17/2025 10:48 AM GARAGE DOOR SERVICE TECHNICIAN Dunia SESAY CHEMISTRY ORDERABLES Final Result [facility] CLIA # [id number] [address] [place] [id number] * POC URINALYSIS DIPSTICK AUTOMATED (02/15/2025 1:06 PM GARAGE DOOR SERVICE TECHNICIAN) COLOR UA POC Yellow Pale to Dark Yellow [facility] CLARITY UA POC Clear Clear, Other [facility] GLUCOSE UA POC Negative Negative, Normal [facility] BILIRUBIN UA POC Negative Negative [facility] UA POC Negative Negative [facility] SPECIFIC GRAVITY UA POC 1.015 1.000 - 1.030 [facility] BLOOD UA POC Negative Negative [facility] C LINIC [facility] PH UA POC 6.0 5.0 - 8.0 [facility] CLIN IC [facility] PROTEIN UA POC Negative Negative [facility] UROBILINOGEN UA POC 0.2 <2.0 mg/dL [facility] NITRITE UA POC Negative Negative [facility] LEUKOCYTE ESTERASE UA POC Negative Negative [facility] KIT LOT NUMBER POC [phone] [facility] KIT EXP DATE POC 10/03/2025 [facility] Urine 02/15/2025 1:06 PM GARAGE DOOR SERVICE TECHNICIAN Kristina Miner ASSISTANT MEDIA BUYER POINT OF CARE TESTING Ana l Result [facility] CLIA# [id number] [address] [place] [address] * (ABNORMAL) [facility] CANCERNEXT AND XG+ CANCERNEXT-EXPANDED (12/30/2024 11:47 PM CDT) [facility] [id number] 12/30/2024 11:47 PM CDT [facility] Comment:[facility] link Interpretation Report See Notes(A) 12/30/2024 11:47 PM CDT [facility] Comment: 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 Risk estimate: increased lifetime risk for pheochromocytoma and paraganglioma. The expression and severity of disease for this individual cannot be predicted. Genetic testing for pathogenic mutations in family members can be helpful in identifying at-risk individuals. Genetic counseling is a recommended option for all individuals undergoing genetic testing. No additional pathogenic mutations, variants of unknown significance, or gross deletions or duplications were detected. Genes Analyzed (77 total): AIP, ALK, APC, KELL, BAP1, BARD1, BMPR1A, BRCA1, BRCA2, BRIP1, CDC73, CDH1, CDK4, CDKN1B, CDKN2A, CEBPA, CHEK2, DICER1, ETV6, FH, FLCN, GATA2, LZTR1, MAX, MEN1, MET, MLH1, MSH2, MSH6, MUTYH, NF1, NF2, NTHL1, PALB2, PHOX2B, PMS2, POT1, MJRVX4I, PTCH1, PTEN, RAD51C, RAD51D, RB1, RET, RPS20, RUNX1, SDHA, SDHAF2, SDHB, SDHC, SDHD, SMAD4, SMARCA4, SMARCB1, SMARCE1, STK11, SUFU, BLLQ753, TP53, TSC1, TSC2, VHL and WT1 (sequencing and deletion/duplication); AXIN2, CTNNA1, DDX41, EGFR, HOXB13, KIT, MBD4, MITF, MSH3, PDGFRA, POLD1 and POLE (sequencing only); EPCAM and GREM1 (deletion/duplication only). Overall Interpretation POSITIVE: Pathogenic Mutation Detected(A) 12/30/2024 11:47 PM CDT [facility] Genes analyzed APC, KELL, BARD1, BMPR1A, BRIP1, CDH1, CDKN2A, CHEK2, DICER1, EPCAM, MAX, MEN1,MLH1, MSH2, MSH6, MUTYH, PALB2, PHOX2B, PMS2, PTCH1, PTEN, RAD51C, RAD51D, RB1,RET, SDHA, SDHAF2, SDHB, SDHC, SDHD, SMAD4, STK11, TALF245, TP53, VHL, FLCN,CDK4, NF1, BRCA1, BRCA2, FH, TSC1, TSC2, ALK, RUNX1, CDKN1B, CEBPA, ETV6,GATA2, MET, NF2, NTHL1, FYLRI3W, RPS20, SMARCA4, SMARCB1, SMARCE1, WT1, LZTR1,BAP1, AIP, POT1, GREM1, SUFU, CDC73, CTNNA1, EGFR, KIT, MITF, MSH3, PDGFRA,POLD1, POLE, AXIN2, MBD4, HOXB13, DDX41 12/30/2024 11:47 PM CDT [facility] Blood specimen (specimen) 12/30/2024 11:50 PM CDT Narrative This result has genomic variants that were not included in this document. Lilibeth Parker DO MOLECULAR ORDERABLES Fin al Result Performing Organization Address City/State/[facility] Co de Phone Number [facility] [address], [address] [place] [address], [facility] [address], [address] [place] [id number] * MAMMO 3D VIRI DIAGNOSTIC BILAT W OR WO CAD (10/14/2024 10:46 AM CDT) Anatomical Region Laterality Modality Breast Bilateral Mammography 10/14/2024 9:32 AM CDT Impressions 10/14/2024 1:13 PM CDT IMPRESSION: 1. No mammographic or sonographic evidence of malignancy, however, given the patient's history of bloody nipple discharge in the left breast, a breast MRI is recommended for further evaluation. A surgical consultation is also recommended. BI-RADS ASSESSMENT: 0 - Incomplete RECOMMENDATION: Bilateral breast MRI and surgical consultation are recommended. Narrative 10/14/2024 1:13 PM CDT EXAM: MAMMO 3D VIRI DIAGNOSTIC BILAT W OR WO CAD, MAMMO BREAST US LEFT LTD INDICATION: 49-year-old woman who presents with a history of intermittent bloody nipple discharge in the left breast that is nonspontaneous and is also brown-yellow and clear. She had a left breast excisional biopsy in 2021 for a light lipoma at an outside facility. Her maternal grandmother had breast cancer at age 70. COMPARISON: October 26, 2023 and prior exams dating back to October 19, 2017 BREAST COMPOSITION: There are scattered areas of fibroglandular density. DIAGNOSTIC RIGHT MAMMOGRAM No suspicious masses, calcifications or areas of distortion are seen. DIAGNOSTIC LEFT MAMMOGRAM No suspicious masses, calcifications or areas of distortion are seen. ULTRASOUND LEFT BREAST: A limited ultrasound was performed with real-time scanning. No solid or cystic masses are seen. us Kristina Miner ASSISTANT MEDIA BUYER MAMMO ORDERABLES Final Res ult * COLONOSCOPY REPORT (06/12/2023 3:44 PM GARAGE DOOR SERVICE TECHNICIAN) Narrative Procedure Note Cristobal Garza MD - 06/12/2023 3:44 PM CST [facility] GI Patient Name: Erika Valentino Procedure Date: 06/12/2023 Date of : 1975 Admit Type: Outpatient Age: 48 Attending MD: Cristobal Garza MD, Procedure: Colonoscopy Indications: Hematochezia Providers: Cristobal Garza MD Referring MD: Medicines: Fentanyl 175 micrograms IV, Midazolam 7 mg IV, Diphenhydramine 50 mg IV Complications: No immediate complications. Estimated blood loss: None. Procedure: Pre-Anesthesia Assessment: - [place] Protocol: - Pre-procedure Verification: Prior to the procedure, the patient's identity was verified by full name and date of . The patient's identity was verified on all pertinent medical records, including History and Physical. Also prior to the procedure, a History and Physical was performed, and patient medications, allergies and sensitivities were reviewed. The patient's tolerance of previous anesthesia was reviewed. The patient is competent. The risks and benefits of the procedure and the sedation options and risks were discussed with the patient. All questions were answered and informed consent was obtained. - Marking: The endoscopic procedure was visually marked on a patient wrist band delineating the patient name, proposed procedure and endoscopist's initials. - Time-Out: Prior to the start of the procedure, the patient's identification, proposed procedure, accurate signed consent, correctly labeled images and records, and need for prophylactic antibiotics were verified by the physician, the nurse and the extractions technician in the endoscopy suite. - Prior to the procedure, a History and Physical was performed, and patient medications, allergies and sensitivities were reviewed. The patient's tolerance of previous anesthesia was reviewed. - The risks and benefits of the procedure and the sedation options and risks were discussed with the patient. All questions were answered and informed consent was obtained. - ASA Grade Assessment: III - A patient with severe systemic disease. After I obtained informed consent, the scope was passed under direct vision. Throughout the procedure, the patient's blood pressure, pulse, and oxygen saturations were monitored continuously. The Colonoscope was introduced through the anus and advanced to the terminal ileum. The colonoscopy was performed without difficulty. The patient tolerated the procedure well. The quality of the bowel preparation was good. The terminal ileum, ileocecal valve, appendiceal orifice, and rectum were photographed. Estimated Blood Loss: Estimated blood loss: none. Findings: The perianal and digital rectal examinations were normal. Multiple large-mouthed and small-mouthed diverticula were found in the entire colon. Non-bleeding internal hemorrhoids were found during retroflexion. The terminal ileum appeared normal. Moderate Sedation: Moderate (conscious) sedation was administered by the nurse and supervised by the endoscopist. The following parameters were monitored: oxygen saturation, heart rate, blood pressure, and response to care. Total physician intraservice time was 25 minutes. Impression: - Diverticulosis in the entire examined colon. - Non-bleeding internal hemorrhoids. - The examined portion of the ileum was normal. - No specimens collected. Recommendation: - Discharge patient to home. - Patient has a contact number available for emergencies. The signs and symptoms of potential delayed complications were discussed with the patient. Return to normal activities tomorrow. Written discharge instructions were provided to the patient. - High fiber diet. - Continue present medications. - Repeat colonoscopy in 10 years for surveillance. - Return to GI clinic as previously scheduled. - Return to primary care physician as previously scheduled. Cristobal Garza MD 06/12/2023 3:44:17 PM This report has been signed electronically. Number of Addenda: 0 Note Initiated On: 06/12/2023 3:25 PM Scope Withdrawal Time 0 hours 8 minutes 1 second Scope In: 3:26:58 PM Scope Out: 3:37:38 PM [address] [place], [place] Cristobal Garza MD GI PROCEDURE ORDERABLES Ana l Result * HEMOGLOBIN A1C (09/13/2014 9:23 AM CDT) HEMOGLOBIN A1C 5.6 4.0 - 6.0 % 09/13/2014 10:06 PM CDT [facility] Comment: Falsely low A1C measurements can occur when: 1. Anemia and/or hemolytic anemia is present. 2. Hemoglobin variants present. 3. Renal failure. 4. Transfusion of blood product in the last 120 days. We recommend ordering a fructosamine test([id number]) to more accurately assess glycemic status if any of the above conditions are present. Blood 09/13/2014 9:23 AM CDT 09/13/2014 9:24 AM CDT Ulises Parr MD CHEMISTRY ORDERABLES Fin al Result [facility] CLIA# [id number] [address] [place] [address] from Last 3 Months or Most Recently Relevant to Health Maintenance Additional Health Concerns Active Problems Noted Date Diagnosed Date Autogenerated Problem 01/30/2025 Insurance [facility] [address] [address] [place] [address] [place]ICA[place] [address] [place] [id number] RX INFOCROSSING Medicaid Advance Directives For more information, please contact: [phone] * Full Code (Latest Code Status on File) Date Activated Date Inactivated Comments 04/15/2022 10:47 AM 04/17/2022 4:09 PM Care Teams Engineering Illustrator Relationship Specialty Start Date End Date Kristina Tran DO [address] [place] [address] PCP - General Family Practice 03/02/23
--- OUTSIDE RECORDS SUMMARY | 2025-02-22 04:59 | XMS_ITS | Patient Health Record ---
Author Organization [facility] Address [address] [place] [address] Support Name Relationship Address , Haven Castro Emergency Contact Unknown Unavailable Erika Valentino Guarantor Unknown [phone] Care Team Providers Care Time Lock Expert Name Role Phone Kristina Tran DO Primary Care Provider Cesar Griggs Unavailable [phone] Yaa Marcano Unavailable [phone] Allergies No Known Allergies Results Component Value Reference Range Flag Notes Tox Results Reviewed date:10/19/2024 03:26:16 PM Interpretation: Performing Lab: Notes/Report: zzzUrine Drug Screen (confir mation by instrument) - [id number] Reviewed date:04/19/2024 03:56:57 PM Interpretation: Performing Lab: Notes/Report: Urine Confirmation Panel (in strument) - [id number] Reviewed date:08/23/2024 12:53:56 PM Interpretation: Performing Lab: Notes/Report: 6-Acetylmorphine 0 <6 ng/mL N This nellie t was developed and its performance characteristics determined by [facility]. It has not been cleared or approved by the U.S. Food and Drug Administration. 7-Aminoclonazepam 0 <60 ng/mL N This te st was developed and its performance characteristics determined by [facility]. It has not been cleared or approved by the U.S. Food and Drug Administration. Alprazolam 0 <60 ng/mL N This test was developed and its performance characteristics determined by [facility]. It has not been cleared or approved by the U.S. Food and Drug Administration. Amphetamine 0 <75 ng/mL N This test was developed and its performance characteristics determined by [facility]. It has not been cleared or approved by the U.S. Food and Drug Administration. aOH-Alprazolam 0 <60 ng/mL N This test was developed and its performance characteristics determined by [facility]. It has not been cleared or approved by the U.S. Food and Drug Administration. Buprenorphine 0.0 <7.5 ng/mL N This test w as developed and its performance characteristics determined by [facility]. It has not been cleared or approved by the U.S. Food and Drug Administration. Norbuprenorphine 0.0 <37.5 ng/mL N This te st was developed and its performance characteristics determined by [facility]. It has not been cleared or approved by the U.S. Food and Drug Administration. Carisoprodol 0 <75 ng/mL N This test wa s developed and its performance characteristics determined by [facility]. It has not been cleared or approved by the U.S. Food and Drug Administration. Codeine 0 <75 ng/mL N This test was developed and its performance characteristics determined by [facility]. It has not been cleared or approved by the U.S. Food and Drug Administration. EDDP 0 <75 ng/mL N This test was developed and its performance characteristics determined by [facility]. It has not been cleared or approved by the U.S. Food and Drug Administration. Fentanyl 0 <6 ng/mL N This test was developed and its performance characteristics determined by [facility]. It has not been cleared or approved by the U.S. Food and Drug Administration. Hydrocodone 0 <75 ng/mL N This test was developed and its performance characteristics determined by [facility]. It has not been cleared or approved by the U.S. Food and Drug Administration. Hydromorphone 0 <75 ng/mL N This test w as developed and its performance characteristics determined by [facility]. It has not been cleared or approved by the U.S. Food and Drug Administration. Lorazepam 0 <60 ng/mL N This test was developed and its performance characteristics determined by [facility]. It has not been cleared or approved by the U.S. Food and Drug Administration. MDMA 0 <75 ng/mL N This test was developed and its performance characteristics determined by [facility]. It has not been cleared or approved by the U.S. Food and Drug Administration. Meperidine 0.0 <37.5 ng/mL N This test was developed and its performance characteristics determined by [facility]. It has not been cleared or approved by the U.S. Food and Drug Administration. Meprobamate 0 <75 ng/mL N This test was developed and its performance characteristics determined by [facility]. It has not been cleared or approved by the U.S. Food and Drug Administration. Methamphetamine 8 <75 ng/mL N This test was developed and its performance characteristics determined by [facility]. It has not been cleared or approved by the U.S. Food and Drug Administration. Methadone 0 <75 ng/mL N This test was developed and its performance characteristics determined by [facility]. It has not been cleared or approved by the U.S. Food and Drug Administration. Morphine 0 <75 ng/mL N This test was developed and its performance characteristics determined by [facility]. It has not been cleared or approved by the U.S. Food and Drug Administration. Nordiazepam 0 <60 ng/mL N This test was developed and its performance characteristics determined by [facility]. It has not been cleared or approved by the U.S. Food and Drug Administration. Norfentanyl 0 <6 ng/mL N This test was developed and its performance characteristics determined by [facility]. It has not been cleared or approved by the U.S. Food and Drug Administration. Normeperidine 0.0 <37.5 ng/mL N This test was developed and its performance characteristics determined by [facility]. It has not been cleared or approved by the U.S. Food and Drug Administration. O-desmethyltramadol 0 <75 ng/mL N This test was developed and its performance characteristics determined by [facility]. It has not been cleared or approved by the U.S. Food and Drug Administration. Oxazepam 0 <60 ng/mL N This test was developed and its performance characteristics determined by [facility]. It has not been cleared or approved by the U.S. Food and Drug Administration. Oxycodone >2500.0 <37.5 ng/mL > This test was developed and its performance characteristics determined by [facility]. It has not been cleared or approved by the U.S. Food and Drug Administration. Oxymorphone 0 <75 ng/mL N This test was developed and its performance characteristics determined by [facility]. It has not been cleared or approved by the U.S. Food and Drug Administration. Phencyclidine 0.0 <7.5 ng/mL N This test w as developed and its performance characteristics determined by [facility]. It has not been cleared or approved by the U.S. Food and Drug Administration. Tapentadol 0.0 <37.5 ng/mL N This test was developed and its performance characteristics determined by [facility]. It has not been cleared or approved by the U.S. Food and Drug Administration. Temazepam 0 <60 ng/mL N This test was developed and its performance characteristics determined by [facility]. It has not been cleared or approved by the U.S. Food and Drug Administration. Tramadol 0 <75 ng/mL N This test was developed and its performance characteristics determined by [facility]. It has not been cleared or approved by the U.S. Food and Drug Administration. Norhydrocodone 0 <75 ng/mL N This test was developed and its performance characteristics determined by [facility]. It has not been cleared or approved by the U.S. Food and Drug Administration. Noroxycodone 0 <38 ng/mL N This test wa s developed and its performance characteristics determined by [facility]. It has not been cleared or approved by the U.S. Food and Drug Administration. Pregabalin 0 <225 ng/mL N This test was developed and its performance characteristics determined by [facility]. It has not been cleared or approved by the U.S. Food and Drug Administration. Gabapentin 0 <225 ng/mL N This test was developed and its performance characteristics determined by [facility]. It has not been cleared or approved by the U.S. Food and Drug Administration. Benzoylecgonine 0.0 <37.5 ng/mL N This nellie t was developed and its performance characteristics determined by [facility]. It has not been cleared or approved by the U.S. Food and Drug Administration. 4-Hydroxy Xylazine 0 <25 ng/mL N This t est was developed and its performance characteristics determined by [facility]. It has not been cleared or approved by the U.S. Food and Drug Administration. Urine Drug Screen (cup read) - [id number] Reviewed date:08/18/2024 11:22:03 AM Interpretation: Performing Lab: Notes/Report: OXY + Tox Results Reviewed date:09/20/2024 02:54:10 PM Interpretation: Performing Lab: Notes/Report: Urine Confirmation Panel (in strument) - [id number] Reviewed date:10/19/2024 03:06:46 PM Interpretation: Performing Lab: Notes/Report: 6-Acetylmorphine 0 <6 ng/mL N This nellie t was developed and its performance characteristics determined by [facility]. It has not been cleared or approved by the U.S. Food and Drug Administration. 7-Aminoclonazepam 0 <60 ng/mL N This te st was developed and its performance characteristics determined by [facility]. It has not been cleared or approved by the U.S. Food and Drug Administration. Alprazolam 0 <60 ng/mL N This test was developed and its performance characteristics determined by [facility]. It has not been cleared or approved by the U.S. Food and Drug Administration. Amphetamine 0 <75 ng/mL N This test was developed and its performance characteristics determined by [facility]. It has not been cleared or approved by the U.S. Food and Drug Administration. aOH-Alprazolam 0 <60 ng/mL N This test was developed and its performance characteristics determined by [facility]. It has not been cleared or approved by the U.S. Food and Drug Administration. Buprenorphine 0.0 <7.5 ng/mL N This test w as developed and its performance characteristics determined by [facility]. It has not been cleared or approved by the U.S. Food and Drug Administration. Norbuprenorphine 0.0 <37.5 ng/mL N This te st was developed and its performance characteristics determined by [facility]. It has not been cleared or approved by the U.S. Food and Drug Administration. Carisoprodol 0 <75 ng/mL N This test wa s developed and its performance characteristics determined by [facility]. It has not been cleared or approved by the U.S. Food and Drug Administration. Codeine 0 <75 ng/mL N This test was developed and its performance characteristics determined by [facility]. It has not been cleared or approved by the U.S. Food and Drug Administration. EDDP 0 <75 ng/mL N This test was developed and its performance characteristics determined by [facility]. It has not been cleared or approved by the U.S. Food and Drug Administration. Fentanyl 0 <6 ng/mL N This test was developed and its performance characteristics determined by [facility]. It has not been cleared or approved by the U.S. Food and Drug Administration. Hydrocodone 0 <75 ng/mL N This test was developed and its performance characteristics determined by [facility]. It has not been cleared or approved by the U.S. Food and Drug Administration. Hydromorphone 0 <75 ng/mL N This test w as developed and its performance characteristics determined by [facility]. It has not been cleared or approved by the U.S. Food and Drug Administration. Lorazepam 0 <60 ng/mL N This test was developed and its performance characteristics determined by [facility]. It has not been cleared or approved by the U.S. Food and Drug Administration. MDMA 0 <75 ng/mL N This test was developed and its performance characteristics determined by [facility]. It has not been cleared or approved by the U.S. Food and Drug Administration. Meperidine 0.0 <37.5 ng/mL N This test was developed and its performance characteristics determined by [facility]. It has not been cleared or approved by the U.S. Food and Drug Administration. Meprobamate 0 <75 ng/mL N This test was developed and its performance characteristics determined by [facility]. It has not been cleared or approved by the U.S. Food and Drug Administration. Methamphetamine 0 <75 ng/mL N This test was developed and its performance characteristics determined by [facility]. It has not been cleared or approved by the U.S. Food and Drug Administration. Methadone 0 <75 ng/mL N This test was developed and its performance characteristics determined by [facility]. It has not been cleared or approved by the U.S. Food and Drug Administration. Morphine 0 <75 ng/mL N This test was developed and its performance characteristics determined by [facility]. It has not been cleared or approved by the U.S. Food and Drug Administration. Nordiazepam 0 <60 ng/mL N This test was developed and its performance characteristics determined by [facility]. It has not been cleared or approved by the U.S. Food and Drug Administration. Norfentanyl 0 <6 ng/mL N This test was developed and its performance characteristics determined by [facility]. It has not been cleared or approved by the U.S. Food and Drug Administration. Normeperidine 0.0 <37.5 ng/mL N This test was developed and its performance characteristics determined by [facility]. It has not been cleared or approved by the U.S. Food and Drug Administration. O-desmethyltramadol 0 <75 ng/mL N This test was developed and its performance characteristics determined by [facility]. It has not been cleared or approved by the U.S. Food and Drug Administration. Oxazepam 0 <60 ng/mL N This test was developed and its performance characteristics determined by [facility]. It has not been cleared or approved by the U.S. Food and Drug Administration. Oxycodone 1193.0 <37.5 ng/mL H This test was developed and its performance characteristics determined by [facility]. It has not been cleared or approved by the U.S. Food and Drug Administration. Oxymorphone 219 <75 ng/mL H This test was developed and its performance characteristics determined by [facility]. It has not been cleared or approved by the U.S. Food and Drug Administration. Phencyclidine 0.0 <7.5 ng/mL N This test w as developed and its performance characteristics determined by [facility]. It has not been cleared or approved by the U.S. Food and Drug Administration. Tapentadol 5.9 <37.5 ng/mL N This test was developed and its performance characteristics determined by [facility]. It has not been cleared or approved by the U.S. Food and Drug Administration. Temazepam 0 <60 ng/mL N This test was developed and its performance characteristics determined by [facility]. It has not been cleared or approved by the U.S. Food and Drug Administration. Tramadol 0 <75 ng/mL N This test was developed and its performance characteristics determined by [facility]. It has not been cleared or approved by the U.S. Food and Drug Administration. Norhydrocodone 0 <75 ng/mL N This test was developed and its performance characteristics determined by [facility]. It has not been cleared or approved by the U.S. Food and Drug Administration. Noroxycodone >2500 <38 ng/mL > This test wa s developed and its performance characteristics determined by [facility]. It has not been cleared or approved by the U.S. Food and Drug Administration. Pregabalin 0 <225 ng/mL N This test was developed and its performance characteristics determined by [facility]. It has not been cleared or approved by the U.S. Food and Drug Administration. Gabapentin 60 <225 ng/mL N This test was developed and its performance characteristics determined by [facility]. It has not been cleared or approved by the U.S. Food and Drug Administration. Benzoylecgonine 0.0 <37.5 ng/mL N This nellie t was developed and its performance characteristics determined by [facility]. It has not been cleared or approved by the U.S. Food and Drug Administration. 4-Hydroxy Xylazine 0 <25 ng/mL N This t est was developed and its performance characteristics determined by [facility]. It has not been cleared or approved by the U.S. Food and Drug Administration. Urine Drug Screen (cup read) - [id number] Reviewed date:10/13/2024 12:44:35 PM Interpretation: Performing Lab: Notes/Report: OPI + OXY + Urine Drug Screen (cup read) - [id number] Reviewed date:06/16/2024 08:58:12 AM Interpretation:Positive Performing Lab: Notes/Report: Positive OXY + Urine Drug Screen (cup read) - [id number] Reviewed date:12/08/2024 01:02:27 PM Interpretation: Performing Lab: Notes/Report: OXY + zzzUrine Drug Screen (confir mation by instrument) - [id number] Reviewed date:05/17/2024 01:32:24 PM Interpretation: Performing Lab: Notes/Report: Urine Confirmation Panel (in strument) - [id number] Reviewed date:09/20/2024 02:45:58 PM Interpretation: Performing Lab: Notes/Report: 6-Acetylmorphine 0 <6 ng/mL N This nellie t was developed and its performance characteristics determined by [facility]. It has not been cleared or approved by the U.S. Food and Drug Administration. 7-Aminoclonazepam 0 <60 ng/mL N This te st was developed and its performance characteristics determined by [facility]. It has not been cleared or approved by the U.S. Food and Drug Administration. Alprazolam 0 <60 ng/mL N This test was developed and its performance characteristics determined by [facility]. It has not been cleared or approved by the U.S. Food and Drug Administration. Amphetamine 0 <75 ng/mL N This test was developed and its performance characteristics determined by [facility]. It has not been cleared or approved by the U.S. Food and Drug Administration. aOH-Alprazolam 0 <60 ng/mL N This test was developed and its performance characteristics determined by [facility]. It has not been cleared or approved by the U.S. Food and Drug Administration. Buprenorphine 0.0 <7.5 ng/mL N This test w as developed and its performance characteristics determined by [facility]. It has not been cleared or approved by the U.S. Food and Drug Administration. Norbuprenorphine 0.0 <37.5 ng/mL N This te st was developed and its performance characteristics determined by [facility]. It has not been cleared or approved by the U.S. Food and Drug Administration. Carisoprodol 0 <75 ng/mL N This test wa s developed and its performance characteristics determined by [facility]. It has not been cleared or approved by the U.S. Food and Drug Administration. Codeine 0 <75 ng/mL N This test was developed and its performance characteristics determined by [facility]. It has not been cleared or approved by the U.S. Food and Drug Administration. EDDP 0 <75 ng/mL N This test was developed and its performance characteristics determined by [facility]. It has not been cleared or approved by the U.S. Food and Drug Administration. Fentanyl 0 <6 ng/mL N This test was developed and its performance characteristics determined by [facility]. It has not been cleared or approved by the U.S. Food and Drug Administration. Hydrocodone 0 <75 ng/mL N This test was developed and its performance characteristics determined by [facility]. It has not been cleared or approved by the U.S. Food and Drug Administration. Hydromorphone 0 <75 ng/mL N This test w as developed and its performance characteristics determined by [facility]. It has not been cleared or approved by the U.S. Food and Drug Administration. Lorazepam 0 <60 ng/mL N This test was developed and its performance characteristics determined by [facility]. It has not been cleared or approved by the U.S. Food and Drug Administration. MDMA 0 <75 ng/mL N This test was developed and its performance characteristics determined by [facility]. It has not been cleared or approved by the U.S. Food and Drug Administration. Meperidine 0.0 <37.5 ng/mL N This test was developed and its performance characteristics determined by [facility]. It has not been cleared or approved by the U.S. Food and Drug Administration. Meprobamate 0 <75 ng/mL N This test was developed and its performance characteristics determined by [facility]. It has not been cleared or approved by the U.S. Food and Drug Administration. Methamphetamine 0 <75 ng/mL N This test was developed and its performance characteristics determined by [facility]. It has not been cleared or approved by the U.S. Food and Drug Administration. Methadone 0 <75 ng/mL N This test was developed and its performance characteristics determined by [facility]. It has not been cleared or approved by the U.S. Food and Drug Administration. Morphine 0 <75 ng/mL N This test was developed and its performance characteristics determined by [facility]. It has not been cleared or approved by the U.S. Food and Drug Administration. Nordiazepam 0 <60 ng/mL N This test was developed and its performance characteristics determined by [facility]. It has not been cleared or approved by the U.S. Food and Drug Administration. Norfentanyl 0 <6 ng/mL N This test was developed and its performance characteristics determined by [facility]. It has not been cleared or approved by the U.S. Food and Drug Administration. Normeperidine 0.0 <37.5 ng/mL N This test was developed and its performance characteristics determined by [facility]. It has not been cleared or approved by the U.S. Food and Drug Administration. O-desmethyltramadol 0 <75 ng/mL N This test was developed and its performance characteristics determined by [facility]. It has not been cleared or approved by the U.S. Food and Drug Administration. Oxazepam 0 <60 ng/mL N This test was developed and its performance characteristics determined by [facility]. It has not been cleared or approved by the U.S. Food and Drug Administration. Oxycodone >2500.0 <37.5 ng/mL > This test was developed and its performance characteristics determined by [facility]. It has not been cleared or approved by the U.S. Food and Drug Administration. Oxymorphone 0 <75 ng/mL N This test was developed and its performance characteristics determined by [facility]. It has not been cleared or approved by the U.S. Food and Drug Administration. Phencyclidine 0.0 <7.5 ng/mL N This test w as developed and its performance characteristics determined by [facility]. It has not been cleared or approved by the U.S. Food and Drug Administration. Tapentadol 0.0 <37.5 ng/mL N This test was developed and its performance characteristics determined by [facility]. It has not been cleared or approved by the U.S. Food and Drug Administration. Temazepam 0 <60 ng/mL N This test was developed and its performance characteristics determined by [facility]. It has not been cleared or approved by the U.S. Food and Drug Administration. Tramadol 0 <75 ng/mL N This test was developed and its performance characteristics determined by [facility]. It has not been cleared or approved by the U.S. Food and Drug Administration. Norhydrocodone 0 <75 ng/mL N This test was developed and its performance characteristics determined by [facility]. It has not been cleared or approved by the U.S. Food and Drug Administration. Noroxycodone 0 <38 ng/mL N This test wa s developed and its performance characteristics determined by [facility]. It has not been cleared or approved by the U.S. Food and Drug Administration. Pregabalin 0 <225 ng/mL N This test was developed and its performance characteristics determined by [facility]. It has not been cleared or approved by the U.S. Food and Drug Administration. Gabapentin 0 <225 ng/mL N This test was developed and its performance characteristics determined by [facility]. It has not been cleared or approved by the U.S. Food and Drug Administration. Benzoylecgonine 0.0 <37.5 ng/mL N This nellie t was developed and its performance characteristics determined by [facility]. It has not been cleared or approved by the U.S. Food and Drug Administration. 4-Hydroxy Xylazine 2 <25 ng/mL N This t est was developed and its performance characteristics determined by [facility]. It has not been cleared or approved by the U.S. Food and Drug Administration. Urine Drug Screen (cup read) - 50209 Reviewed date:09/14/2024 09:39:47 AM Interpretation: Performing Lab: Notes/Report: AMP - BILLY - BUP - BZO - MDMA - OPI - PCP - OXY + MTD - MAMP - Tox Results Reviewed date:08/23/2024 01:02:38 PM Interpretation: Performing Lab: Notes/Report: Reason For Referral No Information Medications Medication SIG (Take, Route, Frequency, Duration) Notes Start Date End Date Status oxyCODONE HCl 10 MG Tablet 1 tablet Orally every 6 hours; Duration: 30 days As needed Not to exceed 2.5 per day Fill on 01/25/2025 12/08/2024 02/24/2025 Active Promethazine HCl 25 MG Tablet 1 tablet as needed Orally every 8 hours As needed Unknown pantoprazole Unknown Docusate Sodium 100 MG Capsule 1 capsule as needed Orally twice a day Unknown Ondansetron Active Social History Social History Additional Details Category Social Info Options Details Migrated Social History Migrated Social History Alcoholic beverages? - Yes, Currently on disability? - No, Drug or substance abuse? - No, If yes, frequency of alcoholic beverages - 2-3 drinks per week, Marital Status - , Nonprescription drug use? - No, Participation in detoxification or rehabilitation - No, Smoking - No, Working currently? - No Problems Problem Type SNOMED Code ICD Code Onset Dates Problem Status W/U Status Risk Notes Problem Benign neoplasm of cerebral meninges (12601213) Benign neoplasm of cerebral meninges (D32.0) 09/30/19 24 Active confirmed Problem Chronic pain syndrome (787099649) Chronic pain syndrome (G89.4) Active confirmed Problem Lumbosacral spondylosis without myelopathy (66757170) Other spondylosis with radiculopathy, lumbosacral region (M47.27) 09/30/19 24 Active confirmed Problem Degeneration of cervical intervertebral disc (42556165) Other cervical disc degeneration, unspecified cervical region (M50.30) 09/30/19 24 Active confirmed Problem Degeneration of lumbar intervertebral disc (75747960) Other intervertebral disc degeneration, lumbar region (M51.36) 09/30/19 24 Active confirmed Problem Abnormal gait (20155530) Unspecified abnormalities of gait and mobility (R26.9) 09/30/19 24 Active confirmed Problem Lumbosacral spondylosis with radiculopathy (665485054) Lumbosacral spondylosis with radiculopathy (M47.27) Active confirmed Problem Cervical disc disorder (209338404) DDD (degenerative disc disease), cervical (M50.30) Active confirmed Problem Abnormal gait (14248740) Abnormality of gait and mobility (R26.9) Active confirmed Problem 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 pain (M51.362) Active confirmed Vital Signs Height-cm 160.02 cm 12/08/2024 Weight-kg 79.38 kg 12/08/2024 Height 63.00 in 12/08/2024 Weight 175 lbs 12/08/2024 BMI 31 kg/m2 12/08/2024 Encounters Encounter Location Date Provider Diagnosis [facility] [address] [address] 09/14/2024 Cesar Riggs Chronic pain syndrom e G89.4 ; Throat mass J39.2 ; DDD (degenerative disc disease), cervical M50.30 ; 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 pain M51.362 ; Lumbosacral spondylosis with radiculopathy M47.27 ; Abnormality of gait and mobility R26.9 ; Benign neoplasm of cerebral meninges D32.0 ; Other diseases of pharynx J39.2 ; Other spondylosis with radiculopathy, lumbosacral region M47.27 ; Other cervical disc degeneration, unspecified cervical region M50.30 ; Other intervertebral disc degeneration, lumbar region M51.36 ; Unspecified abnormalities of gait and mobility R26.9 and superintendent terminal (current) use of opiate analgesic Z79.891 [facility] [address] [address] 08/18/2024 Yaa Marcano Chronic pain syndrom e G89.4 ; Throat mass J39.2 ; DDD (degenerative disc disease), cervical M50.30 ; 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 pain M51.362 ; Lumbosacral spondylosis with radiculopathy M47.27 ; Abnormality of gait and mobility R26.9 ; Benign neoplasm of cerebral meninges D32.0 ; Other diseases of pharynx J39.2 ; Other spondylosis with radiculopathy, lumbosacral region M47.27 ; Other cervical disc degeneration, unspecified cervical region M50.30 ; Other intervertebral disc degeneration, lumbar region M51.36 ; Unspecified abnormalities of gait and mobility R26.9 and superintendent terminal (current) use of opiate analgesic Z79.891 [facility] [address] [address] 07/20/2024 Cesar Riggs Chronic pain syndrom e G89.4 ; Throat mass J39.2 ; DDD (degenerative disc disease), cervical M50.30 ; 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 pain M51.362 ; Lumbosacral spondylosis with radiculopathy M47.27 ; Abnormality of gait and mobility R26.9 and superintendent terminal (current) use of opiate analgesic Z79.891 [facility] [address] [address] 06/16/2024 Yaa Marcano Chronic pain syndrom e G89.4 ; Throat mass J39.2 ; DDD (degenerative disc disease), cervical M50.30 ; 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 pain M51.362 ; Lumbosacral spondylosis with radiculopathy M47.27 ; Abnormality of gait and mobility R26.9 and superintendent terminal (current) use of opiate analgesic Z79.891 [facility] [address] [address] 05/12/2024 Yaa Marcano Chronic pain syndrom e G89.4 ; Throat mass J39.2 ; DDD (degenerative disc disease), cervical M50.30 ; 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 pain M51.362 ; Lumbosacral spondylosis with radiculopathy M47.27 ; Abnormality of gait and mobility R26.9 and superintendent terminal (current) use of opiate analgesic Z79.891 [facility] [address] [address] 04/13/2024 Cesar Riggs Chronic pain syndrom e G89.4 ; Throat mass J39.2 ; DDD (degenerative disc disease), cervical M50.30 ; 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 pain M51.362 ; Lumbosacral spondylosis with radiculopathy M47.27 ; Abnormality of gait and mobility R26.9 and superintendent terminal (current) use of opiate analgesic Z79.891 [facility] [address] [address] 12/08/2024 Yaa Marcano Chronic pain syndrom e G89.4 ; Throat mass J39.2 ; DDD (degenerative disc disease), cervical M50.30 ; 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 pain M51.362 ; Lumbosacral spondylosis with radiculopathy M47.27 ; Abnormality of gait and mobility R26.9 ; Benign neoplasm of cerebral meninges D32.0 ; Other cervical disc degeneration, unspecified cervical region M50.30 ; Other intervertebral disc degeneration, lumbar region M51.36 ; Unspecified abnormalities of gait and mobility R26.9 ; superintendent terminal (current) use of opiate analgesic Z79.891 ; Other diseases of pharynx J39.2 and Other spondylosis with radiculopathy, lumbosacral region M47.27 [facility] [address] [address] 10/26/2024 Cesar Riggs Chronic pain syndrom e G89.4 ; Throat mass J39.2 ; DDD (degenerative disc disease), cervical M50.30 ; 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 pain M51.362 ; Lumbosacral spondylosis with radiculopathy M47.27 ; Abnormality of gait and mobility R26.9 ; Benign neoplasm of cerebral meninges D32.0 ; Other diseases of pharynx J39.2 ; Other spondylosis with radiculopathy, lumbosacral region M47.27 ; Other cervical disc degeneration, unspecified cervical region M50.30 ; Other intervertebral disc degeneration, lumbar region M51.36 ; Unspecified abnormalities of gait and mobility R26.9 and penitentiary (current) use of opiate analgesic Z79.891 [facility] [address] [address] 10/13/2024 Yaa Marcano Chronic pain syndrom e G89.4 ; Throat mass J39.2 ; DDD (degenerative disc disease), cervical M50.30 ; 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 pain M51.362 ; Lumbosacral spondylosis with radiculopathy M47.27 ; Abnormality of gait and mobility R26.9 ; Benign neoplasm of cerebral meninges D32.0 ; Other diseases of pharynx J39.2 ; Other spondylosis with radiculopathy, lumbosacral region M47.27 ; Other cervical disc degeneration, unspecified cervical region M50.30 ; Other intervertebral disc degeneration, lumbar region M51.36 ; superintendent terminal (current) use of opiate analgesic Z79.891 and Unspecified abnormalities of gait and mobility R26.9 [facility] [address] [address] 12/08/2024 Cesar Riggs Lumbosacral spondylosis with radiculopathy M47.27 [facility] [address] [address] 10/13/2024 Cesar Riggs Lumbosacral spondylosis with radiculopathy M47.27 [facility] [address] [address] 08/18/2024 Cesar Riggs Lumbosacral spondylosis with radiculopathy M47.27 [facility] [address] [address] 06/16/2024 Cesar Riggs [facility] [address] [address] 05/12/2024 Cesar Riggs Chronic pain syndrom e G89.4 Assessments Encounter Date Diagnosis (ICD Code) Assessment Notes Treatment Notes Treatment Clinical Notes Section Notes 08/18/2024 Lumbosacral spondylosis with radiculopathy (ICD-10 - M47.27) 08/18/2024 Throat mass (ICD-10 - J39.2) 09/14/2024 Chronic pain syndrome (ICD-10 - G89.4) I had a nice visit with the patient today regarding her chronic pain issues. She says she went to and they evaluated her for some brain masses by the sound of things, and also, she's been struggling with some GI issues. I'm having somewhat of a difficult time appreciating what all she has going on, as we do not have any records aside from her newer brain MRI, which shows the meningiomas. But otherwise, I tried to impress on her the importance of compiling her records and taking them with her to her visits. She was, for some reason, under the impression that all of these records are magically transmitted from one provider to another and that we have access to all of her records, which is certainly not the case. I do believe that she has a lot going on, but she cannot continue to overtake medications and make these decisions without communicating with us. She verbalized understanding of all of this. I'll try to get her an early refill on the medications, but certainly this is not something we can guarantee, nor is this something that we can allow to happen in the future. We will plan to see her back in 1 month, and proceed accordingly from there. RECOMMEND URINE TESTING TODAY Urine drug screening will be performed today to monitor compliance with opioid therapy or to serve as a baseline screen for a patient who may be a candidate for opioid therapy in the future, pending UDS results. We will monitor with in-office testing (rapid testing) today and review the results prior to dispensing prescription. All positive results will be sent for quantitative analysis to ensure accuracy and quantify amounts. Any expected positive results that return negative will also be sent for quantitative analysis. Any questionable read or any medication we cannot test for in the office confidently will be sent for quantitative analysis, as well. Patient has been made aware of this policy and agrees to abide by our urine testing policy. 10/13/2024 Lumbosacral spondylosis with radiculopathy (ICD-10 - M47.27) 10/13/2024 Chronic pain syndrome (ICD-10 - G89.4) I had a long discussion with the patient today regarding her chronic pain complaints and compliance. She states that she has had a lot going on and feels that she is worsening. She went to the ER yesterday for her voice being hoarse, pain in her ribs, difficulty swallowing. She states she is having trouble swallowing any food even a scrambled egg. She does admit to self escalating her medication and will be out 3 days early again this month. I had a long discussion with her regarding compliance and that we must be able to show compliance through pill counts and drug screens in order to continue her medication. She reports she has an upcoming appointment with ENT on October 29. She also has an upcoming appointment for breast ultrasound tomorrow. She reports she had to bury her dog and then has been very stressed due to her daughter vomiting blood and then 4 days later following 6 feet off of a rock. I discussed lifestyle modifications as well as a bowel regimen with her. She does understand we will not do early refills. She will return to clinic in 2 weeks for increased monitoring for compliance. The patient continues with chronic pain requiring treatment to help restore function and improve quality of life. Risks of opioid therapy as well as interaction of opioids with alcohol, illicit drugs, muscle relaxers, and other sedative medications are reviewed briefly with patient again today. The patient has trialed all other reasonable treatment options and uses the medication to alleviate pain in order to remain active and rest with less pain. No clinically relevant medication side effects are noted. Last UDS and AR LICENSE ISSUER reviewed today. Patient is advised that best long-term goals include increased activity, core strengthening, proper weight management, coping strategies, avoidance of painful triggers, and targeted interventional therapy. We will see the patient for routine follow up in accordance with all clinic policies. We did remind patient today of current guidelines to decrease opioid when possible. We will continue to stress nonopioid treatment. RECOMMEND URINE TESTING TODAY Urine drug screening will be performed today to monitor compliance with opioid therapy or to serve as a baseline screen for a patient who may be a candidate for opioid therapy in the future, pending UDS results. We will monitor with in-office testing (rapid testing) today and review the results prior to dispensing prescription. All positive results will be sent for quantitative analysis to ensure accuracy and quantify amounts. Any expected positive results that return negative will also be sent for quantitative analysis. Any questionable read or any medication we cannot test for in the office confidently will be sent for quantitative analysis, as well. Patient has been made aware of this policy and agrees to abide by our urine testing policy. 10/26/2024 Chronic pain syndrome (ICD-10 - G89.4) I had a nice visit with the patient today regarding her chronic pain issues. She brought in a bunch of records today, but the majority of it was discharge paperwork from appointments and procedures she's had. I was unable to isolate any specific pathology that was found in any of the testing she's had completed. At this point, I am having a hard time justifying continued pain medication. I discussed all of this with her. I recommended that we begin working her way away from medications. We will provide tapering dosages for the next couple of months and bring her back in about 8 weeks to re-evaluate. 10/13/2024 Throat mass (ICD-10 - J39.2) 12/08/2024 Chronic pain syndrome (ICD-10 - G89.4) The patient presents today for 2-month follow-up. She continues with multisite pain. She states that she has tried to get hospitals to send us the records that we are requesting and states she does not understand why we are not getting anything. She does report that she recently had a swallow study and has seen ENT. She states that they think something is on her esophagus and sounds like she will be going for an EGD soon. She will keep us updated on this. She reports her headaches have been worse lately but she feels she is doing okay with decreasing on her medication like we have been. After long discussion, I will continue the tapering dosages and we will decrease her oxycodone 10 mg to 75/month. She denies any other changes since we last seen her any untoward side effects of the medication. I did discuss lifestyle modifications as well as a bowel regimen. She will return to clinic in 1 month to monitor for treatment effectiveness and compliance. The patient continues with chronic pain requiring treatment to help restore function and improve quality of life. The current treatment plan does not appear adequate. Risks of new treatment plan as well as interaction of opioids with alcohol, illicit drugs, muscle relaxers, and other sedative medications are reviewed briefly with patient again today. No obvious signs of drug-seeking behavior are noted. Last UDS and AR LICENSE ISSUER reviewed today. Patient is advised that best long-term goals include increased activity, core strengthening, proper weight management, and avoidance of painful triggers. We will see the patient in follow up to assess the effectiveness of treatment plan changes. URINE TESTING TODAY; POINT OF SERVICE Urine drug screening will be performed today to monitor compliance with opioid therapy or to serve as a baseline screen for a patient who may be a candidate for opioid therapy in the future, pending UDS results. We will monitor with in-office testing (rapid testing) today and review the results prior to dispensing prescription, as well. Patient has been made aware of this policy. 12/08/2024 Throat mass (ICD-10 - J39.2) 12/08/2024 Lumbosacral spondylosis with radiculopathy (ICD-10 - M47.27) 04/13/2024 Chronic pain syndrome (ICD-10 - G89.4) I had a long discussion with the patient and her friend today regarding her chronic pain issues. We hadn't seen her in a few months and unfortunately she is still dealing with the throat mass. She still has minimal voice but she is able to communicate. She apparently has a follow up in another couple of months as they monitor this mass which is apparently pretty close to her thyroid, with concerns of cancer. Certainly, she has a significant history as well. We did speak about her medications and they did previously have her, when she was postoperative for her surgery, on straight oxycodone and she preferred that. We will make that change for now and decrease the quantity. She understands that we can tolerate no further deviation from her controlled substance agreement. Whether or not she has been prescribed those medications in the past, she cannot use old prescriptions along with her current medications. She verbalized understanding of this. We will see her back in 1 month and proceed accordingly. 04/13/2024 Throat mass (ICD-10 - J39.2) 05/12/2024 Chronic pain syndrome (ICD-10 - G89.4) I had a nice discussion with the patient today regarding her chronic pain complaints. She states she has been doing better lately on her current medication regimen. She does report they did a biopsy on her throat mass and states that it did come back abnormal but benign. She states they will wait 6 months before they do another biopsy. She reports she is still having a lot of stomach pain and they will be doing some sort of surgery coming up next month. She could not remember what it was called but she will keep us updated on everything. She states her headaches have been little better lately. She denies any other changes since we last seen her any untoward side effects of the medication. She will continue her medication at present level and return to clinic in 1 month to monitor for treatment effectiveness and compliance. RECOMMEND URINE TESTING TODAY Urine drug screening will be performed today to monitor compliance with opioid therapy or to serve as a baseline screen for a patient who may be a candidate for opioid therapy in the future, pending UDS results. We will monitor with in-office testing (rapid testing) today and review the results prior to dispensing prescription. All positive results will be sent for quantitative analysis to ensure accuracy and quantify amounts. Any expected positive results that return negative will also be sent for quantitative analysis. Any questionable read or any medication we cannot test for in the office confidently will be sent for quantitative analysis, as well. Patient has been made aware of this policy and agrees to abide by our urine testing policy. The patient continues with chronic pain requiring treatment to help restore function and improve quality of life. Risks of opioid therapy as well as interaction of opioids with alcohol, illicit drugs, muscle relaxers, and other sedative medications are reviewed briefly with patient again today. The patient has trialed all other reasonable treatment options and uses the medication to alleviate pain in order to remain active and rest with less pain. No clinically relevant medication side effects are noted. Last UDS and AR LICENSE ISSUER reviewed today. Patient is advised that best long-term goals include increased activity, core strengthening, proper weight management, coping strategies, avoidance of painful triggers, and targeted interventional therapy. We will see the patient for routine follow up in accordance with all clinic policies. We did remind patient today of current guidelines to decrease opioid when possible. We will continue to stress nonopioid treatment. 05/12/2024 Chronic pain syndrome (ICD-10 - G89.4) 06/16/2024 Chronic pain syndrome (ICD-10 - G89.4) I had a nice discussion with the patient today regarding her chronic pain complaints. She states her medication is helping some. She feels like her headaches are getting worse and she has been repeating herself a lot. She feels this is similar to how she was before she had to have brain surgery last time. She and her mother states that she has been referred to [facility] to see a neurologist there. She will keep us updated on this. She also reports she recently had the flu but is finally feeling better. She denies any other changes in her health since we last seen her any untoward side effects of the medication. She will continue her medication at present level and return to clinic in 1 month to monitor for treatment effectiveness and compliance. 07/20/2024 Chronic pain syndrome (ICD-10 - G89.4) I had a nice visit with the patient today regarding her chronic pain issues. She unfortunately has been having a bit of a rough go lately with worsening headaches and spontaneous epistaxis which she had previously prior to her other brain surgery. She apparently is going in to see a neurologist at in a few weeks and it sounds like she is going to have some imaging completed and they are going to take a look at her throat as well. With her having more worse days, we did provide a slightly increased quantity for the next month and I will see her back in a month to reevaluate and proceed accordingly. 08/18/2024 Chronic pain syndrome (ICD-10 - G89.4) I had a nice discussion with the patient today regarding her chronic pain complaints. She states she did go see neurology at . She states she was told that she has a total of 3 brain tumors another surgery would not be an option. They are sending her to [facility]. She will keep us updated on this. She states she may be looking at chemo to strengthen. She has had a lot of other things going on in her home life as well and has had a lot of stress. Her medication is working reasonably well for her so she will continue that at present level. She will return to clinic in 1 month to monitor for treatment effectiveness and compliance. The patient continues with chronic pain requiring treatment to help restore function and improve quality of life. Risks of opioid therapy as well as interaction of opioids with alcohol, illicit drugs, muscle relaxers, and other sedative medications are reviewed briefly with patient again today. The patient has trialed all other reasonable treatment options and uses the medication to alleviate pain in order to remain active and rest with less pain. No clinically relevant medication side effects are noted. Last UDS and AR LICENSE ISSUER reviewed today. Patient is advised that best long-term goals include increased activity, core strengthening, proper weight management, coping strategies, avoidance of painful triggers, and targeted interventional therapy. We will see the patient for routine follow up in accordance with all clinic policies. We did remind patient today of current guidelines to decrease opioid when possible. We will continue to stress nonopioid treatment. RECOMMEND URINE TESTING TODAY Urine drug screening will be performed today to monitor compliance with opioid therapy or to serve as a baseline screen for a patient who may be a candidate for opioid therapy in the future, pending UDS results. We will monitor with in-office testing (rapid testing) today and review the results prior to dispensing prescription. All positive results will be sent for quantitative analysis to ensure accuracy and quantify amounts. Any expected positive results that return negative will also be sent for quantitative analysis. Any questionable read or any medication we cannot test for in the office confidently will be sent for quantitative analysis, as well. Patient has been made aware of this policy and agrees to abide by our urine testing policy. Refill oxyCODONE HCl Tablet, 10 MG, 1 tablet, Orally, every 6 hours, As needed Not to exceed 4 per day, 30 days, 120 Tablet, Start Date: 08/19/2024, Stop Date: 09/18/2024, Refills 0, Notes to Pharmacist: Fill on 08/19/24 07/20/2024 Throat mass (ICD-10 - J39.2) 08/18/2024 DDD (degenerative disc disease), cervical (ICD-10 - M50.30) 06/16/2024 Throat mass (ICD-10 - J39.2) 05/12/2024 Throat mass (ICD-10 - J39.2) 04/13/2024 DDD (degenerative disc disease), cervical (ICD-10 - M50.30) 12/08/2024 DDD (degenerative disc disease), cervical (ICD-10 - M50.30) 10/26/2024 Throat mass (ICD-10 - J39.2) 10/13/2024 DDD (degenerative disc disease), cervical (ICD-10 - M50.30) 09/14/2024 Throat mass (ICD-10 - J39.2) 09/14/2024 DDD (degenerative disc disease), cervical (ICD-10 - M50.30) 08/18/2024 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.362) 10/13/2024 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.362) 10/26/2024 DDD (degenerative disc disease), cervical (ICD-10 - M50.30) 12/08/2024 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.362) 04/13/2024 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.362) 05/12/2024 DDD (degenerative disc disease), cervical (ICD-10 - M50.30) 06/16/2024 DDD (degenerative disc disease), cervical (ICD-10 - M50.30) 07/20/2024 DDD (degenerative disc disease), cervical (ICD-10 - M50.30) 06/16/2024 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.362) Continue oxyCODONE HCl Tablet, 10 MG, 1 tablet as needed, Orally, every 8 hours, As needed Do not exceed 3 per day, 30 days, 90 Tablet, Start Date: 06/16/2024, Stop Date: 07/16/2024, Refills 0, Notes to Pharmacist: Fill on 06-16-24 sent to RK to sign 07/20/2024 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.362) 05/12/2024 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.362) 04/13/2024 Lumbosacral spondylosis with radiculopathy (ICD-10 - M47.27) 12/08/2024 Lumbosacral spondylosis with radiculopathy (ICD-10 - M47.27) 10/26/2024 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.362) 10/13/2024 Lumbosacral spondylosis with radiculopathy (ICD-10 - M47.27) 08/18/2024 Lumbosacral spondylosis with radiculopathy (ICD-10 - M47.27) 09/14/2024 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.362) 09/14/2024 Lumbosacral spondylosis with radiculopathy (ICD-10 - M47.27) 10/13/2024 Abnormality of gait and mobility (ICD-10 - R26.9) 10/26/2024 Lumbosacral spondylosis with radiculopathy (ICD-10 - M47.27) 12/08/2024 Abnormality of gait and mobility (ICD-10 - R26.9) 05/12/2024 Lumbosacral spondylosis with radiculopathy (ICD-10 - M47.27) 04/13/2024 Abnormality of gait and mobility (ICD-10 - R26.9) 08/18/2024 Abnormality of gait and mobility (ICD-10 - R26.9) 06/16/2024 Lumbosacral spondylosis with radiculopathy (ICD-10 - M47.27) 07/20/2024 Lumbosacral spondylosis with radiculopathy (ICD-10 - M47.27) 07/20/2024 Abnormality of gait and mobility (ICD-10 - R26.9) 08/18/2024 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) 05/12/2024 Abnormality of gait and mobility (ICD-10 - R26.9) 06/16/2024 Abnormality of gait and mobility (ICD-10 - R26.9) 04/13/2024 superintendent terminal (current) use of opiate analgesic (ICD-10 - Z79.891) 12/08/2024 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) 10/26/2024 Abnormality of gait and mobility (ICD-10 - R26.9) 09/14/2024 Abnormality of gait and mobility (ICD-10 - R26.9) 10/13/2024 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) 09/14/2024 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) 10/26/2024 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) 10/13/2024 Other diseases of pharynx (ICD-10 - J39.2) 12/08/2024 Other cervical disc degeneration, unspecified cervical region (ICD-10 - M50.30) 06/16/2024 superintendent terminal (current) use of opiate analgesic (ICD-10 - Z79.891) 05/12/2024 penitentiary (current) use of opiate analgesic (ICD-10 - Z79.891) 08/18/2024 Other diseases of pharynx (ICD-10 - J39.2) 07/20/2024 superintendent terminal (current) use of opiate analgesic (ICD-10 - Z79.891) 08/18/2024 Other spondylosis with radiculopathy, lumbosacral region (ICD-10 - M47.27) 12/08/2024 Other intervertebral disc degeneration, lumbar region (ICD-10 - M51.36) 10/13/2024 Other spondylosis with radiculopathy, lumbosacral region (ICD-10 - M47.27) 10/26/2024 Other diseases of pharynx (ICD-10 - J39.2) 09/14/2024 Other diseases of pharynx (ICD-10 - J39.2) 09/14/2024 Other spondylosis with radiculopathy, lumbosacral region (ICD-10 - M47.27) 10/26/2024 Other spondylosis with radiculopathy, lumbosacral region (ICD-10 - M47.27) 10/13/2024 Other cervical disc degeneration, unspecified cervical region (ICD-10 - M50.30) 12/08/2024 Unspecified abnormalities of gait and mobility (ICD-10 - R26.9) 08/18/2024 Other cervical disc degeneration, unspecified cervical region (ICD-10 - M50.30) 08/18/2024 Other intervertebral disc degeneration, lumbar region (ICD-10 - M51.36) 12/08/2024 superintendent terminal (current) use of opiate analgesic (ICD-10 - Z79.891) 10/13/2024 Other intervertebral disc degeneration, lumbar region (ICD-10 - M51.36) 10/26/2024 Other cervical disc degeneration, unspecified cervical region (ICD-10 - M50.30) 09/14/2024 Other cervical disc degeneration, unspecified cervical region (ICD-10 - M50.30) 09/14/2024 Other intervertebral disc degeneration, lumbar region (ICD-10 - M51.36) 10/26/2024 Other intervertebral disc degeneration, lumbar region (ICD-10 - M51.36) 10/13/2024 superintendent terminal (current) use of opiate analgesic (ICD-10 - Z79.891) 12/08/2024 Other diseases of pharynx (ICD-10 - J39.2) 08/18/2024 Unspecified abnormalities of gait and mobility (ICD-10 - R26.9) 08/18/2024 penitentiary (current) use of opiate analgesic (ICD-10 - Z79.891) 12/08/2024 Other spondylosis with radiculopathy, lumbosacral region (ICD-10 - M47.27) 10/13/2024 Unspecified abnormalities of gait and mobility (ICD-10 - R26.9) 10/26/2024 Unspecified abnormalities of gait and mobility (ICD-10 - R26.9) 09/14/2024 Unspecified abnormalities of gait and mobility (ICD-10 - R26.9) 09/14/2024 penitentiary (current) use of opiate analgesic (ICD-10 - Z79.891) 10/26/2024 penitentiary (current) use of opiate analgesic (ICD-10 - Z79.891) 04/13/2024 Other Dre Gee am scribing for Cesar Riggs. ICesar, personally performed the services described in this documentation , as scribed by Dre Yousif, and it is both accurate and complete. 07/20/2024 Other Dre Gee am scribing for Dr. Cesar Riggs. I, Dr. Cesar Riggs, personally performed the services described in this documentation, as scribed by Dre Yousif, and it is both accurate and complete. 09/14/2024 Other Haven Gee NCMA, am scribing for Dr. Cesar Riggs. I, Dr. Cesar Riggs, personally performed the services described in this documentation, as scribed by RAFAEL Aguilar, and it is both accurate and complete. 10/26/2024 Other Haven Gee NCMA, am scribing for Dr. Cesar Riggs. I, Dr. Cesar Riggs, personally performed the services described in this documentation, as scribed by RAFAEL Aguilar, and it is both accurate and complete. Plan Of Treatment Next Appt Details Provider Name:Cesar Raymundo Sheafeijosemanuel, 02/22/2025 11:00:00 AM, [address] [place], [address], Insurance Providers Payer Name Payer Address Payer Phone Subscriber Number Group Number Insured Name Patient Relationship to Insured Coverage Start Date Coverage End Date [place] [address] [place] [address] [id number] Erika Valentino Self - patient is the insured Medical (General) History Medical History History ICD Code Arthritis abdominal pain Headache, migraine Depression anxiety Surgical History Surgery Date(Month/Year) Brain surgery Since 2022 Tubal ligation Breast Removal Hospitalization History Reason Date(Month/Year) See surgical HX
== END 2025-02-21 17:36 | disposition left against medical advice (07) ==
PROVIDERS: Emergency Provider Family Medicine; PCP Family Medicine
DX: Z53.21 Procedure and treatment not carried out due to patient leaving prior to being seen by health care provider (principal)

== ENCOUNTER 2025-03-23 07:17 | Emergency (ER) | payer MEDICAID, SELFPAY ==
[2025-03-23 07:22] VITALS: BP 131/90; PULSE 69; RESP 18; TEMP 36.9; O2SAT 100
--- NOTE | 2025-03-23 07:41 | XR_ITS ---
WS: [id number] Portable AP upright chest, 03/23/2025 Clinical Data: chest pain Comparison: Portable chest, 01/25/2023 Findings: No nodules, masses or effusions are seen. The heart is normal. The pulmonary vascularity is not increased. No pneumonia or pneumothorax is seen. Monitor leads are on the chest wall. XR/XR chest 1V portable [id number] Impression: Negative chest.
--- NOTE | 2025-03-23 07:41 | ECG_ITS ---
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
[2025-03-23 08:00] LABS: Hematocrit 37.3 % (36-47); Hemoglobin 12.10 g/dL (11.27-16.99); Mean Corpuscular HGB Conc 32.4 g/dL (30-55); Mean Corpuscular Hemoglobin 29.8 pg (27-33); Mean Corpuscular Volume 91.9 fl (85-98); Nucleated Red Blood Cells % 0 %; Platelet Count 294 10^3/cmm (157-399); Red Blood Count 4.06 10^6/uL (3.85-5.65); White Blood Count 6.32 10^3/uL (3.29-11.43)
[2025-03-23 08:07] VITALS: BP 131/90; PULSE 82; RESP 16; O2SAT 98
[2025-03-23 08:18] LABS: Alanine Aminotransferase 18 U/L (0-33); Albumin Level 4.3 g/dL (3.5-5.2); Alkaline Phosphatase 85 U/L (35-105); Anion Gap 16.9 (5-19); Aspartate Amino Transferase 12 U/L (0-32); Blood Urea Nitrogen 9 mg/dL (6-20); Calcium 9.4 mg/dL (8.5-10.5); Carbon Dioxide 21 mmol/L (22-29); Chloride 104 mmol/L (98-107); Globulin 3.1 g/dL (1.3-4.6); Glucose 103 mg/dL (65-115); Osmolality Calculated 285 mOsm/kg (285-295); Potassium 3.9 mmol/L (3.5-5.1); Sodium 138 mmol/L (136-145); Total Protein 7.4 g/dL (6.6-8.7); Troponin(5th) Baseline < 6 ng/L (0-10)
--- NOTE | 2025-03-23 09:08 | ED_ITS ---
HPI - Chest Pain 2 General: Chief Complaint: Chest Pain Stated Complaint: upper left chest pain Time Seen by Provider: 03/23/25 07:41 History of Present Illness: 50-year-old female who presents emergenc y room complaining of left upper chest pain this been going on for the last several weeks. She woke up this morning more prominent again. She had been seen recently and was having some questional arrhythmias been started on a heart heart monitor but she discontinued it because it got wet and it was draining water. Chest pain is reproducible with palpation across the left anterior chest. Patient also notes some difficulty with speech and the sore throat. Finally she notes that she had an inverted left nipple recently. She has not had any drainage from the nipple. Associated symptoms: Deny abdominal pain, dyspnea or fever(s) Related Data Home Medications ?Medication ?Instructions ?Recorded ?Confirmed ondansetron 4 mg disintegrating 4 mg PO Q8H 01/25/23 0 05/30/24 tablet oxycodone 10 mg tablet 10 mg PO TID PRN Pain 05/30/24 Previous Rx's ?Medication ?Instructions ?Recorded ibuprofen 800 mg tablet 800 mg PO TID #90 tabs 01/20 methylprednisolone 4 mg tablets in See Rx Instructions PO .COMPLEX 03/23/25 a dose pack (Medrol ([place])) #21 ea Allergies Allergy/AdvReac Type Severity Reaction Status Date / Time tramadol Allergy ADR-Seizure Verified 05/30/24 10:06 Review of Systems 2 Const: Denies: fever(s) or chills Card: Reports: chest pain Resp: Denies: dyspnea GI: Denies: abdominal pain : Denies: dysuria, urinary frequency or urinary urgency Musc: Denies: neck pain or back pain Skin/Breast: Denies: rash PFSH ED 2 PFSH: Medical History No pertinent past medical history neghx: htn, dm, thyroid, dvt/pe PCP: Dr. Vital but switching to [facility] Submucous leiomyoma of uterus Breast pain in female Abnormal uterine bleeding Heavy menses Pelvic pain in female Surgical History History of hysterectomy (~06/16/23) TV[facility], ANTERIOR REPAIR, SINGLE INCISION MID URETHRAL SLING, CYSTOSCOPY performed by Agus for AUB, PP, cystocele stage 2. Benign pathology. H/O breast surgery left breast-lumpectomy; benign. Performed at [facility] History of colonoscopy 2011 S/P tonsillectomy and adenoidectomy S/P appendectomy H/O tubal ligation Family History Father Diabetes Hypertension Hyperlipidemia Grandmother Breast cancer maternal, 60's Family/Other Ovarian cancer maternal cousin, 30's Denies family history of Colon cancer Clotting disorder Heart disease Anesthesia complication Bleeding disorder Uterine cancer Thyroid disease Stroke Social History Smoking and tobacco/nicotine status: never used tobacco/nicotine Female Reproductive History: Spontaneous abortions: No Physical Exam 2 Const: GENERAL APPEARANCE: cooperative ORIENTATION/CONSCIOUSNESS: Yes awake, Yes oriented to person, Yes oriented to place and Yes oriented to time HENMT: COMMON NORMALS: normocephalic, atraumatic and hearing grossly normal bilaterally HEAD & SCALP: normocephalic and atraumatic OTHER: Posterior pharyngeal wall normal no swelling no mild erythema no exudates or cobblestoning no cervical lymphadenopathy or submandibular lymphadenopathy Resp: COMMON NORMALS: normal respiratory effort, No retractions, No use of accessory muscles and clear to auscultation bilaterally AUSCULTATION: clear to auscultation bilaterally Cardio: COMMON NORMALS: regular rate, regular rhythm and No murmurs present (Cardio) RATE: regular rate RHYTHM: regular rhythm GI: COMMON NORMALS: Soft to palpation and No hepatosplenomegaly present A USCULTATION: Yes normoactive bowel sounds PALPATION: Yes Soft to palpation, No Tenderness to palpation present (GI), No Guarding due to palpation present (GI) and Yes No hepatosplenomegaly present Extremity: COMMON NORMALS: normal to inspection, capillary refill normal, no clubbing, cyanosis or edema, no calf tenderness and no pedal edema Neuro: SENSORIUM/ORIENTATION: Yes oriented to person, Yes oriented to place and Yes oriented to time Skin: COMMON NORMALS: no rashes or lesions noted GENERAL SKIN EXAM: no rashes or lesions noted Course 2 Vital Signs: Vital signs: Vital Signs Temperature 98.4 F 03/23/25 07:22 Pulse Rate 86 03/23/25 09:46 Respiratory Rate 17 03/23/25 09:46 Blood Pressure 137/97 03/23/25 09:46 Pulse Oximetry 99 03/23/25 09:46 Oxygen Delivery Me thod Room Air 03/23/25 08:07 MDM - Chest Pain Medical Decision Making Medical decision making Social determinants: None I reviewed the patient's medical record. I reviewed the patient's current home meds. Alternate historians: None Differential diagnosis: Musculoskeletal chest wall pain pneumonia chest pain secondary to reflux, acute coronary syndrome, PE, pharyngitis secondary to virus or strep pharyngitis Lab Review: Labs reviewed CBC is normal normal white significant elevation in white count. CMP likewise is unremarkable. Cardiac enzymes are below detectable limits with no significant delta. Imaging: Chest x-ray unremarkable Assessment of risk Level of risk: Low to moderate Hospitalization considerations: Potential hospitalization pending workup patient has pneumonia or acute coronary syndrome may require hospitalization Reexamination: No further symptoms exam otherwise unremarkable Assessment and plan: Cardiac enzymes negative EKG did not show any acute changes she does have some mild reproducible pain with palpation of the chest wall I think there may be a GI component as well certainly no signs of PE at this time she is not particular tachycardic or hypoxic. For pharyngitis her exam was normal we will give her short course steroids as needed may help some of her symptoms. She had reported an abnormal finding on her breast encouraged to follow-up with her primary care doctor with that she should have a mammogram done if she has not had 1 recently. Lab Data 03/23/25 07:30 03/23/25 07:30 Radiology Impressions Chest X-Ray 03/23/25 07:41 Impression: Negative chest. Laboratory Results WBC 6.32 10^3/uL (3.29-11.43) 03/23/25 07:30 RBC 4.06 10^6/uL (3.85-5.65) 03/23/25 07:30 Hgb 12.10 g/dL (11.27-16.99) 03/23/25 07:30 Hct 37.3 % (36-47) 03/23/25 07:30 MCV 91.9 fl (85-98) 03/23/25 07:30 MCH 29.8 pg (27-33) 03/23/25 07:30 MCHC 32.4 g/dL (30-55) 03/23/25 07:30 RDW 12.3 % (12.1-15.1) 03/23/25 07:30 Plt Count 294 10^3/cmm (157-399) 03/23/25 07:30 MPV 10.0 fL (7.4-10.4) 03/23/25 07:30 Neut % (Auto) 51.6 % 03/23/25 07:30 Lymph % (Auto) 38.9 % 03/23/25 07:30 [place] % (Auto) 7.6 % 03/23/25 07:30 Eos % (Auto) 1.4 % 03/23/25 07:30 Baso % (Auto) 0.3 % 03/23/25 07:30 Neut # (Auto) 3.26 10^3/uL (1.8-7.7) 03/23/25 07:30 Lymph # (Auto) 2.5 10^3/uL (0.8-4.8) 03/23/25 07:30 [place] # (Auto) 0.5 10^3/uL (0.2-0.9) 03/23/25 07:30 Eos # (Auto) 0.1 10^3/uL (0.0-0.8) 03/23/25 07:30 Baso # (Auto) 0.0 10^3/uL (0.0-0.1) 03/23/25 07:30 Nucleated RBC % (auto) 0 % 03/23/25 07:30 Nucleated RBCs # 0.0 /100WBC 03/23/25 07:30 D-Dimer 0.59 ug/mLFEU (0-0.59) 03/23/25 07:30 Sodium 138 mmol/L (136-145) 03/23/25 07:30 Potassium 3.9 mmol/L (3.5-5.1) 03/23/25 07:30 Chloride 104 mmol/L (98-107) 03/23/25 07:30 Carbon Dioxide 21 mmol/L (22-29) L 03/23/25 07:30 Anion Gap 16.9 (5-19) 03/23/25 07:30 BUN 9 mg/dL (6-20) 03/23/25 07:30 Creatinine 0.8 mg/dL (0.5-0.9) 03/23/25 07:30 GFR Calculation 75.9 mL/min (90-130) L 03/23/25 07:30 Glucose 103 mg/dL (65-115) 03/23/25 07:30 Calculated Osmolality 285 mOsm/kg (285-295) 03/23/25 07:30 Calcium 9.4 mg/dL (8.5-10.5) 03/23/25 07:30 Total Bilirubin 0.2 mg/dL (0.15-1.2) 03/23/25 07:30 AST 12 U/L (0-32) 03/23/25 07:30 ALT 18 U/L (0-33) 03/23/25 07:30 Alkaline Phosphatase 85 U/L (35-105) 03/23/25 07:30 Troponin T Baseline < 6 ng/L (0-10) 03/23/25 07:30 Troponin T 60 Minute < 6.0 ng/L (0-10) 03/23/25 08:30 Delta Troponin T 0 ABS# (0-10) 03/23/25 08:30 Total Protein 7.4 g/dL (6.6-8.7) 03/23/25 07:30 Albumin 4.3 g/dL (3.5-5.2) 03/23/25 07:30 Globulin 3.1 g/dL (1.3-4.6) 03/23/25 07:30 All radiology interpretation(s) finalized by discharge EKG Data EKG 1: I personally reviewed and interpreted this EKG as follows: Interpretation: EKG 03/23/2025 7:25 AM sinus rhythm rate of 71 DE interval 162 QTc 415[address] No acute ST elevations. Nonspecific T wave changes notedWith inverted T wave in lead III and V5. Compared to EKG from 12/22/2021 no acute changes noted. Rate in previous EKG was mildly tachycardic. EKG 2: I personally reviewed and interpreted this EKG as follows: Interpretation: EKG 03/23/2025 923. Sinus bradycardia rate of 57 DE interval 199 QTc [address] changes noted T wave inversion isolated in lead III and V 3 still present. No other acute changes noted no acute ST elevation noted. Compared to EKG done earlier same day no significant change Discharge Plan Discharge Patient Disposition: Home Clinical Impression: Atypical chest pain, Pharyngitis, Inverted nipple Condition: Stable Prescriptions: New methylprednisolone [Medrol ([place])] 4 mg tablets,dose pack See Rx Instructions .ROUTE .COMPLEX Qty: 21 0RF Rx Instructions: orally per package directions No Action ibuprofen 800 mg tablet 800 mg PO TID Qty: 90 3RF oxycodone 10 mg tablet 10 mg PO TID PRN (Reason: Pain) ondansetron 4 mg tablet,disintegrating 4 mg PO Q8H Rx Instructions: 4 mg orally on the tongue every 8 hours as needed for nausea and vomiting. Discharge Orders: Discharge ED (Routine); Ordered 03/23/25 Ordered By: Chandan Laird Referrals: Kristina Tran DO [Primary Care Provider, [facility]] Discharge Diet: Usual diet Discharge Activity: Resume usual activity Patient Instructions: Chest Pain (ED), Opioid Safety, Pain Management, Patient Portal & Rekha Instructions Activity Restrictions/Additional Instructions: Thank you for choosing [facility] for your healthcare needs today. It is very important that you follow up as instructed or that you return to the Emergency Department should you have concerns or if your condition changes or worsens in any way. Emergency department visits are focused on emergent conditions, in some cases you may require further evaluation on an outpatient basis. You are seen in the emergency room with complaints of chest discomfort for the last several weeks cardiac enzymes and EKGs were normal. Chest pain is reproducible palpation across chest is likely musculoskeletal chest wall pain. On exam your throat appears normal will give you a course of steroids for this is likely caused by a virus. If mentioned abnormal finding on self breast exam on your left breast recommend you follow-up with your primary care doctor regarding this. (Please note that included in your discharge packet is information concerning opioid safety and pain management. This information is given to all patients were discharged from the ER regardless of their discharge diagnosis or the medicines they usually take or are prescribed.) Print Language: Montenegrin Coding Level of Care Code ED Engineering Specialist Technician for Cristino Fwd Heart Score HEART Score Components History: Slightly Suspicous EKG: Normal Age: 45-64 yrs Risk Factors: No Risk Factors Known Troponin: Baseline Trop <16 ng/L HEART Score RESULT HEART Score: 1
--- NOTE | 2025-03-23 09:23 | ECG_ITS ---
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
[2025-03-23 09:46] VITALS: BP 137/97; PULSE 86; RESP 17; O2SAT 99
== END 2025-03-23 09:52 | disposition home or self-care (01) ==
PROVIDERS: Emergency Provider Family Medicine; PCP Family Medicine
DX: R07.89 Other chest pain (principal); J02.9 Acute pharyngitis, unspecified; N64.59 Other signs and symptoms in breast
CPT/HCPCS: 36415; 71045; 80053; 84484; 85025; 85378; 93005; 99285; J9999